=== PATIENT | male | born 1950 | race Caucasian/White ===

== ENCOUNTER 2017-04-28 20:01 | Inpatient (IN) | payer MEDICARE, SELFPAY ==
[2017-04-28 20:01] VITALS: BP 181/110; PULSE 76; RESP 18; TEMP 36.7; O2SAT 96; BMI 33.0
--- NOTE | 2017-04-28 20:16 | CT_ITS ---
STUDY: CT ABDOMEN AND PELVIS WITH CONTRAST REASON FOR EXAM: Male, 66 years old. Abdominal pain and back pain RADIATION DOSAGE (If Supplied By Facility): CTDIvol = ( 23.62 ) mGy, DLP = ( 1420.79 ) mGycm TECHNIQUE: Transaxial images were obtained from the lower chest to the upper thighs without oral contrast. 100 ml of Isovue 370 contrast was administered. Sagittal and coronal images were reconstructed. Individualized dose optimization techniques were used for this CT. COMPARISON: July 22, 2015 FINDINGS: The lower chest is dictated separately. The liver is prominent in size with decreased density. The gallbladder and biliary system are unremarkable. The spleen is unremarkable. There is minimal stranding around the pancreas. This is most pronounced around the head of the pancreas. The adrenal glands are unremarkable. The right kidney is unremarkable. There is no dilatation of the collecting system in the right kidney. There is a 1.4 cm cyst in the midpole of the left kidney. There is no dilatation of the collecting system in the left kidney. The stomach is unremarkable. The small bowel is unremarkable. There are diverticula in the distal colon without adjacent stranding. The appendix is visualized and appears normal. There are moderate vascular calcifications. There is a stable 4.5 cm aneurysm in the infrarenal abdominal aorta. Incidentally noted is a retroaortic left renal vein. There are stable dystrophic calcifications in the mid mesentery which are benign. There is no free fluid in the abdomen. The urinary bladder is unremarkable. The prostate is normal in appearance. There is a small umbilical hernia containing fat. There are mild degenerative changes in the visualized spine. CT/Abdomen/Pelvis W IV Cont ONLY IMPRESSION: There is mild pancreatitis, mainly seen around the head of the pancreas. There is no evidence of a pancreatic mass or pseudocyst. There is no ascites. There is no free air or significant lymphadenopathy. The liver is prominent in size with fatty infiltration. There is diverticulosis of the distal colon. There are no acute bowel abnormalities. There is a stable infrarenal abdominal aortic aneurysm. There is no fluid or inflammation around the infrarenal aorta. Electronically Signed: Kym Gudino MD at 21:48 EST Tel Direct: [phone], Service support ,
--- NOTE | 2017-04-28 20:17 | EKG12_ITS ---
Test Reason : ABDOMINAL PAIN Blood Pressure : / mmHG Vent. Rate : 083 BPM Atrial Rate : 083 BPM P-R Int : 188 ms QRS Dur : 102 ms QT Int : 364 ms P-R-T Axes : 053 -22 059 degrees QTc Int : 427 ms Normal sinus rhythm Inferior infarct , age undetermined Abnormal ECG Confirmed by CLARITA GOFF, LIBRADO ([id number]), assistant film editor JONNIE LOPEZ ([id number]) on 04/30/2017 3:14:33 PM Referred By: STEW Confirmed By:LIBRADO OTTO MD
--- NOTE | 2017-04-28 20:18 | CT_ITS ---
STUDY: CT CHEST WITH CONTRAST REASON FOR EXAM: Male, 66 years old. Chest and back pain RADIATION DOSAGE (If Supplied By Facility): CTDIvol = ( 17.07 ) mGy, DLP = ( 823.37 ) mGycm TECHNIQUE: Transaxial imaging was performed following intravenous administration of 100 ml of Isovue 370 contrast material. Sagittal and coronal reconstructions were performed. Individualized dose optimization techniques were used for this CT. COMPARISON: Chest radiograph dated December 16, 2016; chest CT dated August 22, 2013 FINDINGS: There is minimal stable scarring in the right middle lobe. There is minimal dependent atelectasis in both lungs. There is no demonstrated pleural abnormality. The heart is normal in size. There are calcifications of the coronary arteries. There are stable small lymph nodes scattered in the mediastinum. The hilar regions are unremarkable. The pulmonary arteries are unremarkable. There are minimal vascular calcifications in the thoracic aorta. There are minimal degenerative changes in the visualized spine. The upper abdomen is dictated separately. CT/Chest WITH Contrast IMPRESSION: There are no acute abnormalities in the chest. There is no aortic aneurysm or dissection. There are no focal parenchymal abnormalities. There is no pleural effusion or significant lymphadenopathy. There are stable small lymph nodes in the mediastinum. Electronically Signed: Kym Gudino MD at 21:40 EST Tel Direct: [phone], Service support ,
--- NOTE | 2017-04-28 20:21 | ED.DCSUM_ITS ---
- ER Visit Summary Date of Service: 04/28/17 Chief Complaint: Abdominal pain History of Present Illness: The patient is a 66 M who has had abdominal pain for the couple of weeks but got worse today. He describes pain in his epigastric region that radiates straight through to his back. He has had nausea without vomiting. Denies diarrhea or constipation. He states his bowel movements have been good. No urinary symptoms. The pain increased today which is why he came in. He denies a fever. He has a history of an abdominal aortic aneurysm. In 2016 it was 4.4 cm. The pain does radiate up into his chest. Has a history of pancreatitis 1-2 years ago. Physical Examination: Vital signs reviewed. HEENT exam unremarkable. Heart is regular rate and rhythm with a 3/6 systolic murmur. Patient denies any history of heart murmur. lungs are clear to auscultation. Abdomen is soft with epigastric tenderness to palpation. Extremities reveal no edema. Skin exam normal. Neurologic exam normal. Test Results: EKG is normal sinus rhythm with a rate of 83. There is nonspecific ST and T-wave changes. Laboratory studies are unremarkable except for a lipase [place] 4639. CT scan of the chest, abdomen and pelvis with IV contrast reveals pancreatitis but no other acute findings. He does have a chronic abdominal aortic aneurysm which is stable. Emergency Department Course and Treatment: Due to the patient's new murmur I did obtain advanced imaging which does not show any dissection. He does have pancreatitis. He was given fentanyl, Zofran and Dilaudid. Treatment Plan: Patient needs to be admitted for acute pancreatitis. Will discuss with the hospitalist for admission Disposition: Admit Impression: Pancreatitis This note was generated with [employer] dictation software. It may contain incorrect words, spelling, and punctuation that were not noted in review of the chart prior to signing ED Disposition - Plan for ED Patient: Chief Complaint: Abd Pain Referrals: Compa Ramos MD [Primary Care Provider] -
[2017-04-28] MEDS: Ondansetron 4 MG/2 ML Vial IV (20:30)
[2017-04-28] MEDS: 0.9% Normal Saline 1,000 ML 125 ML IV (20:30)
[2017-04-28] MEDS: fentaNYL 100 MCG/2 ML Ampul 50 MCG IV (20:30)
[2017-04-28 20:47] LABS: Absolute Lymphocyte Count 2.23 X10^3/ul (0.83-4.51); Absolute Neutrophil Count 6.2 X10^3/uL (2.0-7.7); Basophil# 0.03 X10^3/uL; Basophil% 0.3 % (0-1); Eosinophil# 0.25 X10^3/uL; Eosinophils% 2.7 % (0-5); Hemoglobin 15.7 g/dl (13.0-16.5); Lymphocyte # 2.23 X10^3/ul (4.0); Mean Corp Hgb Conc 36.5 g/gl (32-36); Mean Corpuscular Hgb 35.1 pg (27.0-32.0); Mean Corpuscular Volume 96.2 fL (80-94); Mean Platelet Vol. 9.5 fl (6.2-12.0); Monocyte# 0.61 X10^3/uL; Monocyte% 6.6 % (0-10); Neutrophil # 6.15 X10^3/uL (2.7-7.7); Neutrophil % 66.3 % (47-70); Platelet Count 233 K/mm3 (150-450); RBC Distribution Width CV 12.6 % (11.6-14.6); RBC Distribution Width SD 43.8 fl (35.1-43.9); Red Blood Count 4.47 M/mm3 (4.6-6.2); White Blood Count 9.3 K/mm3 (4.4-11.0)
[2017-04-28 20:48] LABS: POSITIVE COUNT NO; POSITIVE DIFFERENTIAL NO; POSITIVE MORPHOLOGY NO
[2017-04-28 21:10] LABS: ALB/GLOB Ratio 1.2 RATIO (0.9-2.4); AST(SGOT) 34 U/L (15-37); Alanine Aminotransfer ALT/SGPT 85 U/L (16-61); Albumin, Serum 4.1 g/dL (3.2-5.0); Alkaline Phosphatase 89 U/L (45-117); Anion Gap 9 (5-15); BUN 19 mg/dL (7-18); BUN/Creat Ratio 20.8 RATIO (10-20); Calcium,Total 8.8 mg/dL (8.5-10.1); Chloride 104 mmol/L (98-107); Creatinine, Serum 0.91 mg/dL (0.70-1.30); EST Glomerular Filtration Rate 88 mL/min (>60); Est Glom Filt Rate - Afr Amer 107 mL/min (>60); Estimated Creatinine Clearance 82.45 ml/min; Globulin 3.4 g/dL (2.2-4.2); Glucose 190 mg/dL (74-106); Lipase 4639 U/L (73-393); Potassium 3.8 mmol/L (3.5-5.1); Protein, Total 7.5 g/dL (6.4-8.2); Sodium Level 137 mmol/L (136-145)
[2017-04-28 21:21] VITALS: BP 189/119; PULSE 85; RESP 23; O2SAT 94
--- NOTE | 2017-04-28 21:25 | NURSING ---
COMPUTER IN THE ROOM IS NOT WORKING. TRIED TO HAVE ANOTHER NURSE LOGIN AND SHE WAS UNABLE TO WELL.
[2017-04-28] MEDS: HYDROmorphone 1 MG/ML Syringe IV ×2 (21:39→23:43)
[2017-04-28 21:47] VITALS: BP 169/96; PULSE 87; RESP 16; O2SAT 95
[2017-04-28 21:55] VITALS: BP 169/96; PULSE 87; RESP 19; O2SAT 96
[2017-04-28 22:00] VITALS: PULSE 91
[2017-04-28 22:50] VITALS: BMI 33.7
[2017-04-28 22:57] VITALS: BMI 33.8
[2017-04-28 23:05] VITALS: BP 155/100; PULSE 82; RESP 18; TEMP 36.6; O2SAT 95
[2017-04-28] MEDS: 0.9% Normal Saline 1,000 ML 150 ML IV (23:21)
[2017-04-29] VITALS (17 sets, daily range): BP systolic 125–164; BP diastolic 85–112; PULSE 75–96; RESP 14–18; TEMP 36.6–37.5; O2SAT 94–98
--- NOTE | 2017-04-29 03:56 | PCM.HP.STD ---
Problem List (1) Pancreatitis Status: Acute (2) Abdominal aortic aneurysm Status: Chronic Qualifiers: Comment: 4 cm (3) HLD (hyperlipidemia) Status: Chronic Qualifiers: (4) HTN (hypertension) Status: Chronic Qualifiers: (5) Sliding hiatal hernia Status: Chronic History of Present Illness Date of Admission: 04/29/17 Chief Complaint: Pancreatitis The patient is a 66 year old male w/ h/o HTN, GERD, pancreatitis, and lipidemia admitted for pancreatitis. Pt has been having dull aching abdominal pain for the past week. However since this morning, he has severe epigastric pain. Pain is stabbing and constant. Nothing made it worse or better. Pain radiated to the back. Pain is associated with nausea. No diarrhea or constipation. Past Medical History Past Medical History (Chronic Problems): Chronic Problems HLD (hyperlipidemia) (Chronic) Abdominal aortic aneurysm (Chronic) 4 cm HTN (hypertension) (Chronic) Sliding hiatal hernia (Chronic) Arthritis (Chronic) Allergies fenofibrate Allergy (Verified 04/28/17 20:04) Unknown Penicillins Allergy (Verified 04/28/17 20:04) Other morphine Adverse Reaction (Verified 04/28/17 20:04) Vomiting naproxen sodium [From Aleve] Adverse Reaction (Verified 04/28/17 20:04) Other Home Medications: Ambulatory Orders Medication Instructions Recorded Acetaminophen [Tylenol] 650 mg PO BID 10/11/13 Aspirin [Aspirin, Baby] 81 mg PO DAILY@0800 10/11/13 Metoprolol Tartrate [Lopressor 50 mg PO BID 10/11/13 (beta dustin)] Multivit-Min/FA/Lycopene/Lut 1 each PO QHS 10/11/13 [Centrum Silver Tablet] Ramipril [Altace] 10 mg PO BID 10/11/13 Ranitidine [Zantac] 150 mg PO BID 07/22/15 Atorvastatin Calcium [Lipitor] 40 mg PO QHS 05/22/16 [place]-3/Dha/Epa/Fish Oil [Fish Oil 2 each PO DAILY 05/22/16 1,000 mg Softgel] Amlodipine [Norvasc] 10 mg PO BID 12/16/16 Potassium 99 mg PO BID 12/16/16 Ibuprofen 600 mg PO BID 04/28/17 Surgical History: - - 1. cardiac cath in 2007 - normal 2. colon polypectomy - 08/2011 - benign 3. hemorrhoidectomy 4. umbilical hernia repair 5. R rotator cuff repair - 08/2013 6. 2 surgeries on the R knee - arthroscopic Psychiatric History: No pertinent psych hx Smoking Status: Never smoker Alcohol: None Drugs: None - *Family History Paternal History Items: Diabetes, Heart Disease, Hypertension Maternal History Items: Diabetes, Heart Disease, Hypertension Review of Systems Constitutional: Denies: Chills, Fever, Weight Change HEENT: Denies: Head Aches, Sinus Congestion, Sinus Drainage Cardiovascular: Denies: Chest Pain, Palpitations Respiratory: Denies: Cough, Shortness of breath at rest, Sputum production Gastrointestinal: Reports: Abdominal Pain, Nausea. Denies: Vomiting Genitourinary: Denies: Dysuria Musculoskeletal: Denies: Joint Pain, Joint Tenderness Skin: Denies: Rash, Wounds Neurological: Denies: Numbness, Tingling, Focal weakness Psychiatric: Denies: Anxiety, Depression, Homicidal Ideations, Suicidal Ideations Hematologic/ Lymphatic: Denies: Easy Bruising, Easy Bleeding VTE Information - Inpt Only VTE Present on Admission: No VTE Mechan Device Prophylaxis: SCD's VTE Pharm Prophylaxis ordered?: Yes Patient Problems: Active and Suspected Problems Pancreatitis (Acute) - Physical Exam General: Alert, Oriented x3, Cooperative HEENT: Atraumatic, PERRLA, EOMI, Normocephalic Neck: Supple, No JVD, Negative Carotid Bruits Lungs: Clear to auscultation, Normal air movement Cardiovascular: Regular rate, Murmur - II/ systolic murmur Abdomen: Bowel Sounds Present, Soft, Non Tender Extremities: No edema, Capillary Refill Less than 3 Seconds Skin: No rashes, No breakdown Musculoskeletal: No Tenderness to Palpation of Joints or Extremities Neurological: Cranial nerves II-XII grossly intact Psych/Mental Status: Normal Affect, Appropriate Vital Signs Temp Pulse Resp BP Pulse Ox 97.9 F 94 18 149/106 H 96 04/29/17 03:46 04/29/17 03:46 04/29/17 03:46 04/29/17 03:46 04/29/17 03:46 Oxygen Delivery Method Room Air Weight: 106.8 kg Body Mass Index (BMI) 33.7 Intake and Output for Last 24 Hours 04/27/17 04/28/17 04/30/17 23:59 23:59 00:59 Intake Total 243 / 243 Balance 243 / 243 Laboratory Tests Past 24 Hrs 04/28/17 23:28 Troponin I < 0.02 Assessment/Plan Active and Suspected Problems Pancreatitis (Acute) 66 year old male w/ h/o HTN, GERD, pancreatitis, and lipidemia admitted for pancreatitis. 1) Pancreatitis: Lipase 4639 CT disclosed pancreatitis, no stone. Will hydrate. Pain controlled with morphine. NPO. Will get AM lipase and lipid. 2) HTN: NPO. Appears controlled at this time. Monitor. 3) CAD: C/w meds. Monitor. 4) Prophylaxis: SCD / heparin.
[2017-04-29 05:28] LABS: Absolute Lymphocyte Count 1.49 X10^3/ul (0.83-4.51); Absolute Neutrophil Count 7.2 X10^3/uL (2.0-7.7); Basophil# 0.03 X10^3/uL; Basophil% 0.3 % (0-1); Eosinophil# 0.15 X10^3/uL; Eosinophils% 1.6 % (0-5); Hematocrit 39.7 % (40-54); Hemoglobin 14.4 g/dl (13.0-16.5); Lymphocyte # 1.49 X10^3/ul (4.0); Lymphocyte % 15.7 % (19-41); Mean Corp Hgb Conc 36.3 g/gl (32-36); Mean Corpuscular Volume 96.4 fL (80-94); Mean Platelet Vol. 9.5 fl (6.2-12.0); Monocyte# 0.61 X10^3/uL; Monocyte% 6.4 % (0-10); Neutrophil # 7.18 X10^3/uL (2.7-7.7); Neutrophil % 75.9 % (47-70); Platelet Count 222 K/mm3 (150-450); RBC Distribution Width CV 12.4 % (11.6-14.6); RBC Distribution Width SD 42.1 fl (35.1-43.9); Red Blood Count 4.12 M/mm3 (4.6-6.2); White Blood Count 9.5 K/mm3 (4.4-11.0)
[2017-04-29 05:41] LABS: POSITIVE COUNT NO; POSITIVE DIFFERENTIAL NO; POSITIVE MORPHOLOGY NO
[2017-04-29] MEDS: HYDROmorphone 1 MG/ML Syringe IV (05:52)
[2017-04-29 06:16] LABS: Amylase 132 U/L (25-115); Anion Gap 9 (5-15); BUN 19 mg/dL (7-18); Calcium,Total 8.5 mg/dL (8.5-10.1); Chloride 105 mmol/L (98-107); Cholesterol 198 mg/dL (200); Creatinine, Serum 0.76 mg/dL (0.70-1.30); EST Glomerular Filtration Rate 109 mL/min (>60); Est Glom Filt Rate - Afr Amer 132 mL/min (>60); Estimated Creatinine Clearance 75.03 ml/min; Glucose 170 mg/dL (74-106); High Density Lipoprotein 28 mg/dL; Lipase 1490 U/L (73-393); Sodium Level 138 mmol/L (136-145); Triglycerides 613 mg/dL
[2017-04-29] MEDS: 0.9% Normal Saline 1,000 ML 150 ML IV ×3 (07:24→21:16)
--- NOTE | 2017-04-29 08:30 | ECHOD_ITS ---
Reason For Study: Dyspnea/SOB Procedure This was a 2D Doppler, Color Flow transthoracic echocardiogram. Exam performed portable in patient room. Left Ventricle Normal LV size. Left ventricular systolic function is normal. The estimated ejection fraction is 65 %. No evidence for diastolic dysfunction. No regional wall motion abnormalities noted. Right Ventricle Normal RV size. Normal systolic function. Atria Normal left atrium. Normal right atrium. Mitral Valve Chordal systolic anterior motion of the mitral valve. Posterior leaflet mitral valve prolapse. Mild -Moderate (1-2+) anteriorly directed mitral valve insufficiency. Tricuspid Valve Normal tricuspid valve. Mild tricuspid valve insufficiency. Aortic Valve Normal aortic valve. Trisinus/trileaflet aortic valve. Pulmonic Valve Normal pulmonic valve. Great Vessels Normal aortic root. The pulmonary artery is normal size. Normal inferior vena cava. Pericardium/Pleural No pericardial effusion. MMode/2D Measurements & Calculations LVIDd: 4.7 cm IVSd: 1.2 cm Ao root diam: 3.6 cm LVIDs: 2.8 cm LVPWd: 0.93 cm LA dimension: 4.6 cm RVDd: 3.3 cm FS: 40.4 % LAV(MOD-bp): 64.1 ml LA A4 area: 19.0 cm2 RA A4 area: 11.5 cm2 LAV(MOD-bp) Indexed: 28.7 ml/m2 LAV(MOD-sp2): 75.6 ml LAV(MOD-sp4): 52.2 ml Time Measurements MV dec time: 0.15 sec Doppler Measurements & Calculations MV E max josemanuel: 132.9 cm/sec Lat Peak E' Josemanuel: 7.7 cm/sec Med Peak E' Josemanuel: 6.6 cm/sec MV A max josemanuel: 128.1 cm/sec E/E' lat: 17.3 E/E' med: 20.2 MV E/A: 1.0 MV V2 max: 150.8 cm/sec MV P1/2t max josemanuel: 147.5 cm/sec Ao V2 max: 158.0 cm/sec MV max P.1 mmHg MV P1/2t: 96.2 msec Ao max P.0 mmHg MV V2 mean: 102.2 cm/sec MV dec slope: 449.0 cm/sec2 Ao V2 mean: 109.0 cm/sec MV mean P.5 mmHg MVA(P1/2t): 2.3 cm2 Ao mean P.1 mmHg MV V2 VTI: 44.9 cm Ao V2 VTI: 31.7 cm PA V2 max: 78.8 cm/sec TR max josemanuel: 130.3 cm/sec TR max P.8 mmHg Interpretation Summary Normal LV size. Left ventricular systolic function is normal. The estimated ejection fraction is 65 %. No evidence for diastolic dysfunction. Posterior leaflet mitral valve prolapse. Mild-Moderate (1-2+) anteriorly directed mitral valve insufficiency. Mild tricuspid valve insufficiency. Ordering Physician: Alena Young Referring Physician: Compa Ramos Performed By: Marissa Sweet, JO, RVT
[2017-04-29] MEDS: Metoprolol Tartrate 50 MG Tablet PO ×2 (08:46→21:16)
--- NOTE | 2017-04-29 10:50 | PCM.PN.HOSP ---
Patient Problems: Active and Suspected Problems Pancreatitis (Acute) Subjective: Follow-up on pancreatitis: Patient was seen and examined. Does not feel like eating. Feels full. Pain is controlled with dilaudid. Denies fever or chills or dizziness. Vitals reviewed, blood pressure is high. Patient's home medications have been on hold. Upon further review, his home medication list is probably wrong. His will bring his home medication. He also gets his medications filled with [facility]. Vitals/I&O's: Vital Signs Temp Pulse Resp BP Pulse Ox 97.9 F 96 18 163/104 H 96 04/29/17 03:46 04/29/17 08:46 04/29/17 03:46 04/29/17 08:39 04/29/17 03:46 Oxygen Delivery Method Room Air Weight: 106.8 kg Body Mass Index (BMI) 33.7 Intake and Output for Last 24 Hours 04/27/17 04/28/17 04/30/17 23:59 23:59 00:59 Intake Total 869 / 869 Output Total 550 / 550 Balance 319 / 319 General: Alert, Oriented x3, Cooperative, No apparent distress, - - Obese HEENT: Atraumatic, PERRLA, EOMI, Normocephalic Oral: Moist Mucosa Neck: Supple Lungs: Clear to auscultation, Normal air movement Cardiovascular: Regular rate, Regular Rhythm, Normal S1, Normal S2, No murmurs Abdomen: Bowel Sounds Present, Soft, Non Tender, Distended Extremities: No edema Skin: No rashes, No breakdown Musculoskeletal: No Tenderness to Palpation of Joints or Extremities Lymphatic: No Cervical, Supraclavicular, or Inguinal Adenopathy Neurological: Cranial nerves II-XII grossly intact, Neuro grossly intact Psych/Mental Status: Normal Affect, Appropriate Laboratory Results 04/28/17 23:28: Troponin I < 0.02 04/29/17 04:50: WBC 9.5, RBC 4.12 L, Hgb 14.4, Hct 39.7 L, MCV 96.4 H, MCH 35.0 H, MCHC 36.3 H, RDW 12.4, RDW Differential 42.1, Plt Count 222, MPV 9.5, Immature Gran % (Auto) 0.100, Neut % (Auto) 75.9 H, Lymph % (Auto) 15.7 L, [place] % (Auto) 6.4, Eos % (Auto) 1.6, Baso % (Auto) 0.3, Absolute Neuts (auto) 7.2, Absolute Lymphs (auto) 1.49, Total Counted Not Reportable 04/29/17 04:50: Sodium 138, Potassium 4.0, Chloride 105, Carbon Dioxide 24.0, Anion Gap 9, BUN 19 H, Creatinine 0.76, Estim Creat Clear Calc 75.03, Est GFR (MDRD) Af Amer 132, Est GFR (MDRD) Non-Af 109, BUN/Creatinine Ratio 25.0 H, Glucose 170 H, Calcium 8.5, Triglycerides 613 H, Cholesterol 198, LDL Cholesterol TNP, VLDL Cholesterol TNP, HDL Cholesterol 28 L, Amylase 132 H, Lipase 1490 H Current Medications Atorvastatin Calcium (Lipitor) 80 mg PO QHS [facility] Heparin Sodium (Porcine) (Heparin Na) 5,000 unit SC Q8 [facility] Last Admin: 04/29/17 05:54 Dose: 5,000 units Hydralazine HCl (Apresoline) 10 mg IV Q4H PRN PRN PRN Reason: BLOOD PRESSURE ELEVATION Last Admin: 04/29/17 05:53 Dose: 10 mg Hydromorphone HCl (Dilaudid) 1 mg IV Q2H PRN PRN PRN Reason: SEVERE PAIN (6-11/28) Last Admin: 04/29/17 05:52 Dose: 1 mg Sodium Chloride () 1,000 mls @ 150 mls/hr IV .Q6H40M [facility] Last Admin: 04/29/17 07:24 Dose: 150 mls/hr Famotidine (Pepcid 20mg) 20 mg in 50 mls @ 150 mls/hr IV Q12 [facility] Last Admin: 04/29/17 10:32 Dose: 150 mls/hr Magnesium Hydroxide (Milk Of Magnesia) 30 ml PO DAILY PRN PRN PRN Reason: Constipation Metoprolol Tartrate (Lopressor (Beta Hari)) 50 mg PO BID [facility] Last Admin: 04/29/17 08:46 Dose: 50 mg Sodium Chloride () 5 - 30 ml IV UD PRN PRN Reason: SALINE FLUSH Assessment/Plan Active and Suspected Problems Pancreatitis (Acute) 66 year old male past medical history of CAD, hypertension, previous admission in July 2016 for acute pancreatitis, following ICU admission comes in on 04/28/2017 with abdominal pain with nausea but no vomiting. Admitting lipase was 4639, CT scan of the abdomen and pelvis shows mild stranding of the head of the pancreas consistent with mild pancreatitis. 1. Acute pancreatitis secondary to hypertriglyceridemia, triglycerides 613, patient is on atorvastatin 40 nightly, obese, managed conservatively with IV fluids, pain control, kept n.p.o. Plan: Continue with conservative management, advance diet as patient improves, continue with pain control, IV fluids, increase atorvastatin to 80 mg nightly, also get ultrasound of the liver to rule out gallstone as possible etiology for his acute pancreatitis. Strongly educated on strict low-fat diet, exercises and weight loss. 2. Holosystolic murmur, unsure if this is new, last 2D echo on December 18, 2016 showed no valvular disease, will get new 2D-echo 3. Hypertension, uncontrolled, will resume some of his home medications. The admitting home medication reconciliation list is wrong, his will bring all his medications or we will call [facility] to have them fax over his current med list 4. CAD, last cardiac cath showed minimal disease, his aspirin on hold on account of his n.p.o. status, continued on metoprolol, atorvastatin, 5. DVT Prophylaxis - SCD / heparin. Code Visit Procedures: Other Procedure - See Report - Non-roundable billing
--- NOTE | 2017-04-29 11:00 | PN_ITS ---
Patient Problems: Active and Suspected Problems Pancreatitis (Acute) Subjective: Follow-up on pancreatitis: Patient was seen and examined. Does not feel like eating. Feels full. Pain is controlled with dilaudid. Denies fever or chills or dizziness. Vitals reviewed, blood pressure is high. Patient's home medications have been on hold. Upon further review, his home medication list is probably wrong. His will bring his home medication. He also gets his medications filled with [facility]. Vitals/I&O's: Vital Signs Temp Pulse Resp BP Pulse Ox 97.9 F 96 18 163/104 H 96 04/29/17 03:46 04/29/17 08:46 04/29/17 03:46 04/29/17 08:39 04/29/17 03:46 Oxygen Delivery Method Room Air Weight: 106.8 kg Body Mass Index (BMI) 33.7 Intake and Output for Last 24 Hours 04/27/17 04/28/17 04/30/17 23:59 23:59 00:59 Intake Total 869 / 869 Output Total 550 / 550 Balance 319 / 319 General: Alert, Oriented x3, Cooperative, No apparent distress, - - Obese HEENT: Atraumatic, PERRLA, EOMI, Normocephalic Oral: Moist Mucosa Neck: Supple Lungs: Clear to auscultation, Normal air movement Cardiovascular: Regular rate, Regular Rhythm, Normal S1, Normal S2, No murmurs Abdomen: Bowel Sounds Present, Soft, Non Tender, Distended Extremities: No edema Skin: No rashes, No breakdown Musculoskeletal: No Tenderness to Palpation of Joints or Extremities Lymphatic: No Cervical, Supraclavicular, or Inguinal Adenopathy Neurological: Cranial nerves II-XII grossly intact, Neuro grossly intact Psych/Mental Status: Normal Affect, Appropriate Laboratory Results 04/28/17 23:28: Troponin I < 0.02 04/29/17 04:50: WBC 9.5, RBC 4.12 L, Hgb 14.4, Hct 39.7 L, MCV 96.4 H, MCH 35.0 H, MCHC 36.3 H, RDW 12.4, RDW Differential 42.1, Plt Count 222, MPV 9.5, Immature Gran % (Auto) 0.100, Neut % (Auto) 75.9 H, Lymph % (Auto) 15.7 L, [place] % (Auto) 6.4, Eos % (Auto) 1.6, Baso % (Auto) 0.3, Absolute Neuts (auto) 7.2, Absolute Lymphs (auto) 1.49, Total Counted Not Reportable 04/29/17 04:50: Sodium 138, Potassium 4.0, Chloride 105, Carbon Dioxide 24.0, Anion Gap 9, BUN 19 H, Creatinine 0.76, Estim Creat Clear Calc 75.03, Est GFR ( MDRD) Af Amer 132, Est GFR (MDRD) Non-Af 109, BUN/Creatinine Ratio 25.0 H, Glucose 170 H, Calcium 8.5, Triglycerides 613 H, Cholesterol 198, LDL Cholesterol TNP, VLDL Cholesterol TNP, HDL Cholesterol 28 L, Amylase 132 H, Lipase 1490 H Current Medications Atorvastatin Calcium (Lipitor) 80 mg PO QHS [facility] Heparin Sodium (Porcine) (Heparin Na) 5,000 unit SC Q8 [facility] Last Admin: 04/29/17 05:54 Dose: 5,000 units Hydralazine HCl (Apresoline) 10 mg IV Q4H PRN PRN PRN Reason: BLOOD PRESSURE ELEVATION Last Admin: 04/29/17 05:53 Dose: 10 mg Hydromorphone HCl (Dilaudid) 1 mg IV Q2H PRN PRN PRN Reason: SEVERE PAIN (6-11/28) Last Admin: 04/29/17 05:52 Dose: 1 mg Sodium Chloride () 1,000 mls @ 150 mls/hr IV .Q6H40M [facility] Last Admin: 04/29/17 07:24 Dose: 150 mls/hr Famotidine (Pepcid 20mg) 20 mg in 50 mls @ 150 mls/hr IV Q12 [facility] Last Admin: 04/29/17 10:32 Dose: 150 mls/hr Magnesium Hydroxide (Milk Of Magnesia) 30 ml PO DAILY PRN PRN PRN Reason: Constipation Metoprolol Tartrate (Lopressor (Beta Hari)) 50 mg PO BID [facility] Last Admin: 04/29/17 08:46 Dose: 50 mg Sodium Chloride () 5 - 30 ml IV UD PRN PRN Reason: SALINE FLUSH Assessment/Plan Active and Suspected Problems Pancreatitis (Acute) 66 year old male past medical history of CAD, hypertension, previous admission in July 2016 for acute pancreatitis, following ICU admission comes in on 2017 with abdominal pain with nausea but no vomiting. Admitting lipase was 4639 , CT scan of the abdomen and pelvis shows mild stranding of the head of the pancreas consistent with mild pancreatitis. 1. Acute pancreatitis secondary to hypertriglyceridemia, triglycerides 613, patient is on atorvastatin 40 nightly, obese, managed conservatively with IV fluids, pain control, kept n.p.o. Plan: Continue with conservative management, advance diet as patient improves, continue with pain control, IV fluids, increase atorvastatin to 80 mg nightly, also get ultrasound of the liver to rule out gallstone as possible etiology for his acute pancreatitis. Strongly educated on strict low-fat diet, exercises and weight loss. 2. Holosystolic murmur, unsure if this is new, last 2D echo on December 18, 2016 showed no valvular disease, will get new 2D-echo 3. Hypertension, uncontrolled, will resume some of his home medications. The admitting home medication reconciliation list is wrong, his will bring all his medications or we will call [facility] to have them fax over his current med list 4. CAD, last cardiac cath showed minimal disease, his aspirin on hold on account of his n.p.o. status, continued on metoprolol, atorvastatin, 5. DVT Prophylaxis - SCD / heparin. Code Visit Procedures: Other Procedure - See Report - Non-roundable billing
[2017-04-29] MEDS: Atorvastatin Calcium 80 MG Tablet PO (21:16)
[2017-04-29] MEDS: 0.9% NaCl Peripheral Flush Adult/Peds IV (21:16)
[2017-04-30] VITALS (15 sets, daily range): BP systolic 134–158; BP diastolic 85–106; PULSE 71–91; RESP 16; TEMP 36.4–37.2; O2SAT 96–99
[2017-04-30] MEDS: 0.9% Normal Saline 1,000 ML 150 ML IV (03:12)
[2017-04-30] MEDS: Metoprolol Tartrate 50 MG Tablet PO ×2 (08:57→20:49)
[2017-04-30] MEDS: 0.9% NaCl Peripheral Flush Adult/Peds IV ×2 (09:00→14:53)
--- NOTE | 2017-04-30 10:02 | PCM.PROGNOTE ---
Patient Problems: Active and Suspected Problems Pancreatitis (Acute) Subjective: Patient is a 66-year-old male with a past medical history of hypertension, hypertriglyceridemia, coronary artery disease, hypercholesterolemia, hiatal hernia, infrarenal abdominal aortic aneurysm, diverticulosis and obesity who presented to the emergency department at [facility] on 04/29/2017 complaining of abdominal pain. Pain radiated to his back. He was afebrile with a normal white blood cell count. [place]ase [place] 4639. CT scan of the abdomen and pelvis showed a stable 4.5 cm infrarenal abdominal aortic aneurysm, diverticulosis, fatty infiltration of the liver and stranding around the head of the pancreas. He was admitted to the hospital with pancreatitis presumed to be due to high TRIG. He has had 1 episode of pancreatitis in the past and that was caused by Fenofibrate he was taking for high TRIG. He has had dyslipidemia in the past and has been on Atorvastatin but, he is no longer on this medication and dose not know why is was stopped and who stopped it. He has been eating a regular diet in the hospital He denies nausea and has not had to have pain medication since 6 AM on 04/29. He tells me that he has been having nausea for the past 4-6 weeks. It gets worse when he eats sausage. Blood sugars have been elevated in the hospital. No bowel movement since admission - Physical Exam General: Alert, Oriented x3, Cooperative, No apparent distress HEENT: Atraumatic, PERRLA, EOMI Oral: Moist Mucosa Neck: Supple, Trachea Midline Lungs: Clear to auscultation Cardiovascular: Regular rate, Regular Rhythm, Normal S1, Normal S2, No Gallop Abdomen: Non Tender, Hypoactive Bowel Sounds, Distended - and a little firm Extremities: No clubbing, No cyanosis, No edema Skin: No rashes, No breakdown Neurological: Cranial nerves II-XII grossly intact, Neuro grossly intact Psych/Mental Status: Normal Affect, Appropriate Vital Signs Temp Pulse Resp BP Pulse Ox 98.4 F 88 16 158/105 H 98 04/30/17 08:54 04/30/17 08:59 04/30/17 08:54 04/30/17 08:54 04/30/17 08:54 Oxygen Delivery Method Room Air Weight: 235 lb 7.259 oz Body Mass Index (BMI) 33.7 Intake and Output for Last 24 Hours 04/28/17 04/29/17 04/30/17 22:59 23:59 23:59 Intake Total 880 / 880 Output Total 600 / 600 Balance 280 / 280 Assessment/Plan Active and Suspected Problems Pancreatitis (Acute) Impressions 1. Acute pancreatitis - etiology unclear to me. He does not drink alcohol. He gets nauseated and has RUQ abdominal pain with eatig sausage and it radiates to the R shoulder blade. Will obtain a RUQ US today. Change the diet to clear liquid and recheck lab in the AM 2. elevated blood sugars with no hx of DM - check a HGBA1C 3. Dyslipidemia-continue atorvastatin but decreased the dose to 40 mg which was the dose he was on last Spring when I admitted him for CP 4. Obesity 5. Coronary artery disease-on medical management. 6. Hypertension 7. New MM heard by dr. Young.....ECHO done today awaiting the report Change diet to clear liquid Recheck the lab in the AM Decrease the IV rate US of the GB continue DVT prophylaxis with heparin and SCDs Restart aspirin at discharge [employer]' consult for education Code Visit Inpatient E&M: 99680 Subs Hosp L2
--- NOTE | 2017-04-30 10:12 | PN_ITS ---
Patient Problems: Active and Suspected Problems Pancreatitis (Acute) Subjective: Patient is a 66-year-old male with a past medical history of hypertension, hypertriglyceridemia, coronary artery disease, hypercholesterolemia, hiatal hernia, infrarenal abdominal aortic aneurysm, diverticulosis and obesity who presented to the emergency department at [facility] on 2017 complaining of abdominal pain. Pain radiated to his back. He was afebrile with a normal white blood cell count. Lipase was elevated [place] 4639. CT scan of the abdomen and pelvis showed a stable 4.5 cm infrarenal abdominal aortic aneurysm, diverticulosis, fatty infiltration of the liver and stranding around the head of the pancreas. He was admitted to the hospital with pancreatitis presumed to be due to high TRIG. He has had 1 episode of pancreatitis in the past and that was caused by Fenofibrate he was taking for high TRIG. He has had dyslipidemia in the past and has been on Atorvastatin but , he is no longer on this medication and dose not know why is was stopped and who stopped it. He has been eating a regular diet in the hospital He denies nausea and has not had to have pain medication since 6 AM on 04/29. He tells me that he has been having nausea for the past 4-6 weeks. It gets worse when he eats sausage. Blood sugars have been elevated in the hospital. No bowel movement since admission - Physical Exam General: Alert, Oriented x3, Cooperative, No apparent distress HEENT: Atraumatic, PERRLA, EOMI Oral: Moist Mucosa Neck: Supple, Trachea Midline Lungs: Clear to auscultation Cardiovascular: Regular rate, Regular Rhythm, Normal S1, Normal S2, No Gallop Abdomen: Non Tender, Hypoactive Bowel Sounds, Distended - and a little firm Extremities: No clubbing, No cyanosis, No edema Skin: No rashes, No breakdown Neurological: Cranial nerves II-XII grossly intact, Neuro grossly intact Psych/Mental Status: Normal Affect, Appropriate Vital Signs Temp Pulse Resp BP Pulse Ox 98.4 F 88 16 158/105 H 98 04/30/17 08:54 04/30/17 08:59 04/30/17 08:54 04/30/17 08:54 04/30/17 08:54 Oxygen Delivery Method Room Air Weight: 235 lb 7.259 oz Body Mass Index (BMI) 33.7 Intake and Output for Last 24 Hours 04/28/17 04/29/17 04/30/17 22:59 23:59 23:59 Intake Total 880 / 880 Output Total 600 / 600 Balance 280 / 280 Assessment/Plan Active and Suspected Problems Pancreatitis (Acute) Impressions 1. Acute pancreatitis - etiology unclear to me. He does not drink alcohol. He gets nauseated and has RUQ abdominal pain with eatig sausage and it radiates to the R shoulder blade. Will obtain a RUQ US today. Change the diet to clear liquid and recheck lab in the AM 2. elevated blood sugars with no hx of DM - check a HGBA1C 3. Dyslipidemia-continue atorvastatin but decreased the dose to 40 mg which was the dose he was on last Spring when I admitted him for CP 4. Obesity 5. Coronary artery disease-on medical management. 6. Hypertension 7. New MM heard by dr. 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
[2017-04-30] MEDS: 0.9% Normal Saline 1,000 ML 40 ML IV (10:23)
--- NOTE | 2017-04-30 10:27 | US_ITS ---
STUDY: ABDOMINAL ULTRASOUND - RIGHT UPPER QUADRANT REASON FOR VISIT: Male, 66 years old. Elevated liver function tests. TECHNIQUE: Ultrasound evaluation of the right upper quadrant was performed with real-time and static clarke-scale imaging. TECHNICAL QUALITY: Adequate. COMPARISON: July 24, 2015 ultrasound. April 28, 2017 CT FINDINGS: Liver: The liver measures 16.3 cm. There is increased echogenicity consistent with fatty infiltration. The bile ducts are within normal limits. There is hepatic color flow. The direction of portal flow is hepatopetal. There is no demonstrated mass lesion. Gallbladder: Normal distended gallbladder. The gallbladder wall measures 3 mm. There is a negative sonographic Rios's sign. There is no pericholecystic fluid. There are no gallstones. There is echogenic nonshadowing polyp adherent to the wall. Common Bile Duct (C.B.D.): The common bile duct measures 8 mm. Pancreas: Normal size of the head, body and tail of the pancreas. There is normal echogenicity of the pancreas. There is no demonstrated pancreatic mass or cyst. Right Kidney: Normal size of the right kidney. The right kidney measures 13.5 cm. Normal renal cortex. The right cortex measures 2.1 cm. There is no demonstrated renal mass or cyst. There is no right hydronephrosis. US/Abdomen Limited IMPRESSION: Fatty infiltration of the liver. Polyp within the gallbladder. No shadowing stones. Prominent common bile duct. Electronically Signed: Asim Kidd MD at 16:10 EDT , Service support ,
--- NOTE | 2017-04-30 10:39 | CASEMGMT ---
RN SHAGGY Face to Face with patient for initial transition planning/care coordination assessment. RN CM introduced self and role at [facility]. Patient sitting in chair, alert and oriented. Patient willing to participate in assessment and is able to answer all questions appropriately. Care providers, pharmacy, and demographics verified. See link attached. Patient wishes to discharge home, denies need for home health at this time. Patient states he has no further needs or concerns at this time. CM to follow for discharge planning needs that may arise. Disposition Plan: Patient to discharge home with family support and follow-up needs in place.
[2017-04-30 10:54] LABS: Hemoglobin 15.1 g/dl (13.0-16.5)
[2017-04-30 10:56] LABS: Lipase 477 U/L (73-393)
--- NOTE | 2017-04-30 15:13 | NURSING ---
Pt. off the floor for ultrasound
[2017-04-30] MEDS: Acetaminophen 325 MG Tablet 650 MG PO (20:48)
[2017-04-30] MEDS: Atorvastatin Calcium 40 MG Tablet PO (20:49)
[2017-05-01 04:45] VITALS: BP 159/91; PULSE 78; RESP 16; TEMP 36.9; O2SAT 98
[2017-05-01] MEDS: Acetaminophen 325 MG Tablet 650 MG PO (04:52)
[2017-05-01 05:32] LABS: Absolute Neutrophil Count 3.8 X10^3/uL (2.0-7.7); Basophil# 0.04 X10^3/uL; Basophil% 0.6 % (0-1); Eosinophil# 0.24 X10^3/uL; Eosinophils% 3.4 % (0-5); Hematocrit 41.1 % (40-54); Hemoglobin 14.9 g/dl (13.0-16.5); Lymphocyte % 32.7 % (19-41); Mean Corp Hgb Conc 36.3 g/gl (32-36); Mean Corpuscular Hgb 35.1 pg (27.0-32.0); Mean Corpuscular Volume 96.7 fL (80-94); Mean Platelet Vol. 9.4 fl (6.2-12.0); Monocyte# 0.64 X10^3/uL; Monocyte% 9.1 % (0-10); Neutrophil # 3.79 X10^3/uL (2.7-7.7); Neutrophil % 53.9 % (47-70); Platelet Count 214 K/mm3 (150-450); RBC Distribution Width CV 12.7 % (11.6-14.6); RBC Distribution Width SD 43.6 fl (35.1-43.9); Red Blood Count 4.25 M/mm3 (4.6-6.2)
[2017-05-01 05:33] LABS: POSITIVE COUNT NO; POSITIVE DIFFERENTIAL NO; POSITIVE MORPHOLOGY NO
[2017-05-01 07:38] LABS: Anion Gap 6 (5-15); BUN 14 mg/dL (7-18); BUN/Creat Ratio 15.4 RATIO (10-20); Calcium,Total 9.3 mg/dL (8.5-10.1); Chloride 107 mmol/L (98-107); Creatinine, Serum 0.91 mg/dL (0.70-1.30); EST Glomerular Filtration Rate 89 mL/min (>60); Est Glom Filt Rate - Afr Amer 107 mL/min (>60); Estimated Creatinine Clearance 82.45 ml/min; Glucose 119 mg/dL (74-106); Potassium 3.9 mmol/L (3.5-5.1); Sodium Level 138 mmol/L (136-145)
[2017-05-01 07:40] LABS: Lipase 224 U/L (73-393)
[2017-05-01 08:51] VITALS: BP 170/109; PULSE 84; RESP 16; TEMP 36.4; O2SAT 98
[2017-05-01 08:56] VITALS: PULSE 84
[2017-05-01] MEDS: Metoprolol Tartrate 50 MG Tablet PO (08:56)
[2017-05-01] MEDS: 0.9% NaCl Peripheral Flush Adult/Peds IV (08:57)
[2017-05-01 10:25] VITALS: BP 135/91; PULSE 91
--- NOTE | 2017-05-01 12:09 | PCM.DC ---
- Discharge Diagnoses Current Active Problems: Current Active and Chronic Problems Pancreatitis (Acute) You will use the following diet at home:: Cardiac Your food should be the consistency of: Regular Your liquids should be the consistency of: Regular/Thin Discharge Activity: Return to Normal Activity Call your doctor if you observe: Fever of 101 or Higher, Shortness of breath, Chest pain, Uncontrolled pain, - - nausea and vomiting, severe abdominal pain, shaking chills Instructions: Understanding Pancreatitis, Discharge Instructions for Acute Pancreatitis Additional Instructions: You have a polyp in the gallbladder. These can develop because of high fats in the blood, chronic inflammation and also from malignancies. I am giving you a requisition to obtain a test called a HIDA scan. This is a specific test for Gallbladder dysfunction. I would talk to Dr. Ramos before scheduling the test because he may to clear it with your insurance company so they will pay for it. I think you should follow up with Dr. Michelle about the polpyp even if the HIDA is negative because you are having symptoms we see with inflammation of the gallbladder and you have now had pancreatitis twice. I am giving you a prescription for atorvastatin (also called Lipitor). You will take this once daily at bedtime. I have also given you a requisition to obtain a lipid panel and liver profile in 6 weeks and the results will be sent to Dr. Ramos. If you start to have symptoms like the pancreatitis may be recurring cut back to a clear liquid diet for 48-72 hours to see if it resolves....if not go to the ED or call Dr. Ramos. The ECHO (ultrasound of the heart) shows that the heart squeezes noramlly. The murmur is due to a leaky mitral valve and this Murmur will get louder when the BP is high. It was high in the hospital because your BP pills were held. Your BP is still rather high. Please follow up in the office with Dr. Ramos in the next 5-7 days to have the BP rechecked. Ideally the BP should be < 130/80. Pending Tests on Discharge: none Allergies/Adverse Reactions: Allergies fenofibrate Allergy (Verified 04/28/17 20:04) Unknown Penicillins Allergy (Verified 04/28/17 20:04) Other morphine Adverse Reaction (Verified 04/28/17 20:04) Vomiting naproxen sodium [From Aleve] Adverse Reaction (Verified 04/28/17 20:04) Other Medications to take at Discharge Acetaminophen [Tylenol] 650 mg PO BID 10/11/13 Aspirin [Aspirin, Baby] 81 mg PO DAILY@0800 10/11/13 Metoprolol Tartrate [Lopressor (beta dustin)] 50 mg PO BID 10/11/13 Multivit-Min/FA/Lycopene/Lut [Centrum Silver Tablet] 1 each PO QHS 10/11/13 Ramipril [Altace] 10 mg PO BID 10/11/13 Ranitidine [Zantac] 150 mg PO BID 07/22/15 Atorvastatin Calcium [Lipitor] 40 mg PO QHS 05/22/16 [place]-3/Dha/Epa/Fish Oil [Fish Oil 1,000 mg Softgel] 2 each PO DAILY 05/22/16 Amlodipine [Norvasc] 10 mg PO BID 12/16/16 Potassium 99 mg PO BID 12/16/16 Ibuprofen 600 mg PO TID PRN PRN 04/28/17 Zonisamide [Zonegran] 25 mg PO DAILY 04/29/17 Atorvastatin Calcium [Lipitor] 40 mg PO QHS #30 tab 05/01/17 The following prescriptions were given: Atorvastatin Calcium [Lipitor] 40 mg PO QHS #30 tab Orders to be completed after discharge: Hepatobilliary Img w/Pharm Int [NM] Location: None Selected Primary Care Physician: Compa Ramos MD [Primary Care Provider] - Please follow up with your Primary Care Physician in: 5-7 days Please Follow Up With: Sabino Michelle MD When: 2 weeks Proposed Discharge Date: 05/01/17
--- NOTE | 2017-05-01 12:19 | DCINST_ITS ---
- Discharge Diagnoses Current Active Problems: Current Active and Chronic Problems Pancreatitis (Acute) You will use the following diet at home:: Cardiac Your food should be the consistency of: Regular Your liquids should be the consistency of: Regular/Thin Discharge Activity: Return to Normal Activity Call your doctor if you observe: Fever of 101 or Higher, Shortness of breath, Chest pain, Uncontrolled pain, - - nausea and vomiting, severe abdominal pain, shaking chills Instructions: Understanding Pancreatitis, Discharge Instructions for Acute Pancreatitis Additional Instructions: You have a polyp in the gallbladder. These can develop because of high fats in the blood, chronic inflammation and also from malignancies. I am giving you a requisition to obtain a test called a HIDA scan. This is a specific test for Gallbladder dysfunction. I would talk to Dr. Ramos before scheduling the test because he may to clear it with your insurance company so they will pay for it. I think you should follow up with Dr. Michelle about the polpyp even if the HIDA is negative because you are having symptoms we see with inflammation of the gallbladder and you have now had pancreatitis twice. I am giving you a prescription for atorvastatin (also called Lipitor). You will take this once daily at bedtime. I have also given you a requisition to obtain a lipid panel and liver profile in 6 weeks and the results will be sent to Dr. Ramos. If you start to have symptoms like the pancreatitis may be recurring cut back to a clear liquid diet for 48-72 hours to see if it resolves....if not go to the ED or call Dr. Ramos. The ECHO ( ultrasound of the heart) shows that the heart squeezes noramlly. The murmur is due to a leaky mitral valve and this Murmur will get louder when the BP is high. It was high in the hospital because your BP pills were held. Your BP is still rather high. Please follow up in the office with Dr. Ramos in the next 5 -7 days to have the BP rechecked. Ideally the BP should be < 130/80. Pending Tests on Discharge: none Allergies/Adverse Reactions: Allergies fenofibrate Allergy (Verified 04/28/17 20:04) Unknown Penicillins Allergy (Verified 04/28/17 20:04) Other morphine Adverse Reaction (Verified 04/28/17 20:04) Vomiting naproxen sodium [From Aleve] Adverse Reaction (Verified 04/28/17 20:04) Other Medications to take at Discharge Acetaminophen [Tylenol] 650 mg PO BID 10/11/13 Aspirin [Aspirin, Baby] 81 mg PO DAILY@0800 10/11/13 Metoprolol Tartrate [Lopressor (beta dustin)] 50 mg PO BID 10/11/13 Multivit-Min/FA/Lycopene/Lut [Centrum Silver Tablet] 1 each PO QHS 10/11/13 Ramipril [Altace] 10 mg PO BID 10/11/13 Ranitidine [Zantac] 150 mg PO BID 07/22/15 Atorvastatin Calcium [Lipitor] 40 mg PO QHS 05/22/16 [place]-3/Dha/Epa/Fish Oil [Fish Oil 1,000 mg Softgel] 2 each PO DAILY 05/22/16 Amlodipine [Norvasc] 10 mg PO BID 12/16/16 Potassium 99 mg PO BID 12/16/16 Ibuprofen 600 mg PO TID PRN PRN 04/28/17 Zonisamide [Zonegran] 25 mg PO DAILY 04/29/17 Atorvastatin Calcium [Lipitor] 40 mg PO QHS #30 tab 05/01/17 The following prescriptions were given: Atorvastatin Calcium [Lipitor] 40 mg PO QHS #30 tab Orders to be completed after discharge: Hepatobilliary Img w/Pharm Int [NM] Location: None Selected Primary Care Physician: Compa Ramos MD [Primary Care Provider] - Please follow up with your Primary Care Physician in: 5-7 days Please Follow Up With: Sabino Michelle MD When: 2 weeks Proposed Discharge Date: 05/01/17
--- NOTE | 2017-05-01 12:35 | PCM.DC.SUM ---
Discharge Date and Diagnosis Date of Admission: 04/29/17 Date of Discharge: 05/01/17 - Primary Discharge Diagnosis Active and Suspected Problems Pancreatitis (Acute) - recurrent Abnormal LFT's Hyperglycemia - HGBA1C is 6.0 - Secondary Discharge Diagnosis Chronic Problems Mitral regurgitation (Chronic) mild - moderate Obesity (Chronic) CAD (coronary artery disease) (Chronic) - on medical management Hepatic steatosis (Chronic) Gallbladder polyp (Chronic) Hypertriglyceridemia (Chronic) Abdominal aortic aneurysm (Chronic) 4.5 cm HTN (hypertension) (Chronic) Sliding hiatal hernia (Chronic) Arthritis (Chronic) Recurrent pancreatitis Hospital Course and Treatment Imaging Results: Clinical Impression(s) from Imaging Studies Abdomen/Pelvis CT 04/28/17 20:16 IMPRESSION: There is mild pancreatitis, mainly seen around the head of the pancreas. There is no evidence of a pancreatic mass or pseudocyst. There is no ascites. There is no free air or significant lymphadenopathy. The liver is prominent in size with fatty infiltration. There is diverticulosis of the distal colon. There are no acute bowel abnormalities. There is a stable infrarenal abdominal aortic aneurysm. There is no fluid or inflammation around the infrarenal aorta. Electronically Signed: Kym Gudino MD at 21:48 EST Tel Direct: [phone], Service support , Chest CT 04/28/17 20:18 IMPRESSION: There are no acute abnormalities in the chest. There is no aortic aneurysm or dissection. There are no focal parenchymal abnormalities. There is no pleural effusion or significant lymphadenopathy. There are stable small lymph nodes in the mediastinum. Electronically Signed: Kym Gudino MD at 21:40 EST Tel Direct: [phone], Service support , Abdomen Ultrasound 04/30/17 10:27 IMPRESSION: Fatty infiltration of the liver. Polyp within the gallbladder. No shadowing stones. Prominent common bile duct. Electronically Signed: Asim Kidd MD at 16:10 EDT , Service support , Laboratory Results - last 24 hr 05/01/17 05/01/1705/01/18 05:10 05:10 05:10 WBC 7.0 RBC 4.25 L Hgb 14.9 Hct 41.1 MCV 96.7 H MCH 35.1 H MCHC 36.3 H RDW 12.7 RDW Differential 43.6 Plt Count 214 MPV 9.4 Immature Gran % (Auto) 0.300 Neut % (Auto) 53.9 Lymph % (Auto) 32.7 [place] % (Auto) 9.1 Eos % (Auto) 3.4 Baso % (Auto) 0.6 Absolute Neuts (auto) 3.8 Absolute Lymphs (auto) 2.30 Total Counted Not Reportable Sodium 138 Potassium 3.9 Chloride 107 Carbon Dioxide 25.0 Anion Gap 6 BUN 14 Creatinine 0.91 Estim Creat Clear Calc 82.45 Est GFR (MDRD) Af Amer 107 Est GFR (MDRD) Non-Af 89 BUN/Creatinine Ratio 15.4 Glucose 119 H Hemoglobin A1c Calcium 9.3 Lipase 224 05/01/17 05:10 WBC RBC Hgb Hct MCV MCH MCHC RDW RDW Differential Plt Count MPV Immature Gran % (Auto) Neut % (Auto) Lymph % (Auto) [place] % (Auto) Eos % (Auto) Baso % (Auto) Absolute Neuts (auto) Absolute Lymphs (auto) Total Counted Sodium Potassium Chloride Carbon Dioxide Anion Gap BUN Creatinine Estim Creat Clear Calc Est GFR (MDRD) Af Amer Est GFR (MDRD) Non-Af BUN/Creatinine Ratio Glucose Hemoglobin A1c 6.0 Calcium Lipase none Operations: None Procedures: 2-D Echocardiogram Summary of Care Provided: Mr. Wright is a 66-year-old male with a past medical history of hypertension, hypertriglyceridemia, coronary artery disease, hypercholesterolemia, hiatal hernia, infrarenal abdominal aortic aneurysm, diverticulosis and obesity who presented to the emergency department at [facility] on 04/29/2017 complaining of abdominal pain. The pain radiated to his back. He had been having intermittent nausea for the preceding 4-6 weeks. The nausea gets worse when he eats sausage. He was afebrile with a normal white blood cell count. Lipase was elevated at 4,639. CT scan of the abdomen and pelvis showed a stable 4.5 cm infrarenal abdominal aortic aneurysm, diverticulosis, fatty infiltration of the liver and stranding around the head of the pancreas. He was admitted to the hospital with pancreatitis presumed to be due to high TRIG. TRIG was 613. He has had 1 episode of pancreatitis in the past and he was told it was caused by Fenofibrate he was taking for high TRIG. He has had dyslipidemia in the past and had been on Atorvastatin but, he was no longer on this medication and does not know why is was stopped and who stopped it. Ultrasound of the right upper quadrant showed increased echogenicity of the liver consistent with fatty infiltration. Bile ducts were within normal limits. The gallbladder wall measured 3 mm. There was no pericholecystic fluid there was an echogenic non-shadowing polyp adherent to the gallbladder wall. Pancreas showed normal echogenicity and there was no demonstrated pancreatic mass or cyst. The common bile duct was prominent and measured 8 mm. Symptoms resolved fairly quickly and he was admitted on 04/29 and discharged on 05/01. Lipase at discharge was 224 and he was tolerating a low-fat diet with no nausea, vomiting, abdominal pain. Blood sugars were elevated during his hospital stay and a hemoglobin A1c was checked and was 6.0. He was restarted on atorvastatin to better control his lipids. I am suspicious that he has GB dysfunction due to the recurrent intermittent nausea with fatty foods and he may be passing gallstones because the common bile duct is prominent. He may also be transiently occluding the cystic duct because of the GB polyp.. He may need a HIDA scan. I advised him to follow up with Dr. Michelle in the near future for further work up. He was discharged home on 05/01/2017 with a prescription for atorvastatin 40 mg daily and instructions to follow a fat diet. Was given a requisition for a HIDA scan but told that Dr. Ramos may need to rise this with his insurance company since I am not his primary care physician. He will follow-up with Dr. Ramos in 5-[address] Michelle in 2 weeks. This note was generated with [employer] software. It may contain incorrect words, spelling, and punctuation that were not noted in checking the note before signing. Discharge Activity: Return to Normal Activity Call your doctor if you observe: Fever of 101 or Higher, Shortness of breath, Chest pain, Uncontrolled pain, - - nausea and vomiting, severe abdominal pain, shaking chills Home Medications: Medications to take at Discharge Acetaminophen [Tylenol] 650 mg PO BID 10/11/13 Aspirin [Aspirin, Baby] 81 mg PO DAILY@0800 10/11/13 Metoprolol Tartrate [Lopressor (beta dustin)] 50 mg PO BID 10/11/13 Multivit-Min/FA/Lycopene/Lut [Centrum Silver Tablet] 1 each PO QHS 10/11/13 Ramipril [Altace] 10 mg PO BID 10/11/13 Ranitidine [Zantac] 150 mg PO BID 07/22/15 Atorvastatin Calcium [Lipitor] 40 mg PO QHS 05/22/16 [place]-3/Dha/Epa/Fish Oil [Fish Oil 1,000 mg Softgel] 2 each PO DAILY 05/22/16 Amlodipine [Norvasc] 10 mg PO BID 12/16/16 Potassium 99 mg PO BID 12/16/16 Ibuprofen 600 mg PO TID PRN PRN 04/28/17 Zonisamide [Zonegran] 25 mg PO DAILY 04/29/17 Atorvastatin Calcium [Lipitor] 40 mg PO QHS #30 tab 05/01/17 Following Prescrptions Were Given to Patient: Atorvastatin Calcium [Lipitor] 40 mg PO QHS #30 tab Other Amb Orders: Hepatobilliary Img w/Pharm Int [NM] Location: None Selected Primary Care Physician: Compa Ramos MD [Primary Care Provider] - Please follow up with your Primary Care Physician in: 5-7 days Please Follow Up With: Sabino Michelle MD When: 2 weeks Patient Instructions: Understanding Pancreatitis, Discharge Instructions for Acute Pancreatitis Disposition: Home Minutes spent on discharge:: 30 Patient Condition:: Good Meaningful Use Info Meaningful Use Diagnoses (Choose all that apply): None applicable Code Visit Inpatient E&M: 33839 Disch Hosp
== END 2017-05-01 13:05 | disposition home or self-care (01) | DRG 440 ==
LOC: ED 21:10 → MS3 22:23
PROVIDERS: Admitting Provider Internal Medicine; Emergency Provider Emergency Medicine; Family Provider Family Medicine; PCP Family Medicine; Visit Provider Internal Medicine
DX: K85.90 Acute pancreatitis without necrosis or infection, unspecified (principal); K76.0 Fatty (change of) liver, not elsewhere classified; E66.9 Obesity, unspecified; E78.1 Pure hyperglyceridemia; Z68.33 Body mass index [BMI] 33.0-33.9, adult; I25.10 Atherosclerotic heart disease of native coronary artery without angina pectoris; I10 Essential (primary) hypertension; Z79.899 Other long term (current) drug therapy; E78.5 Hyperlipidemia, unspecified; I71.4 Abdominal aortic aneurysm, without rupture; R73.9 Hyperglycemia, unspecified; I34.0 Nonrheumatic mitral (valve) insufficiency; M19.90 Unspecified osteoarthritis, unspecified site; K82.4 Cholesterolosis of gallbladder
CPT/HCPCS: 36415; 71260; 74177; 76705; 80048; 80053; 80061; 82150; 83036; 83690; 84484; 85018; 85025; 87040; 93005; 93306; 97802; 99282; J7030; Q9957; Q9967; A4216; J2405

== ENCOUNTER → 2017-05-11 10:05 | Outpatient (CLI) | payer MEDICARE, SELFPAY ==
--- NOTE | 2017-05-11 10:08 | NM_ITS ---
CLINICAL: 66-year-old male with reported history of abdominal pain. RADIONUCLIDE HEPATOBILIARY SCINTIGRAPHY COMPARISON: Abdominal ultrasound report 04/30/2017, CT of the abdomen-pelvis report 04/28/2017 FINDINGS: Following the intravenous administration of 5.3 mCi of 99m Tc Mebrofenin, hepatobiliary images reveal: 1. Relatively prompt and homogeneous radiopharmaceutical concentration is noted by a normal sized liver. No parenchymal defects are identified. 2. Gallbladder activity is identified at 10 minutes post radiopharmaceutical administration. 3. Small intestinal tract is observed at 45 minutes following tracer injection. 4. Washout of the radiopharmaceutical by the hepatic parenchyma appears qualitatively normal. The patient was administered a fatty meal (8 ounces BOOST-30 grams fat). The post fatty meal consumption gallbladder ejection fraction calculated at 30 minutes was noted to be 70.0 % (normal greater than 30%). NM/Hepatobilliary Imaging IMPRESSION: 1. NORMAL 99m Tc Mebrofenin hepatobiliary imaging examination with fatty meal ingestion. A. A gallbladder ejection fraction calculated to be greater than 30% following the administration of a consumed fatty meal makes the probability of functional hepatobiliary disease (gallbladder and/or sphincter of Oddi dyskinesia) and/or organic hepatobiliary disease (chronic acalculous cholecystitis and/or cystic duct syndrome) to be low. (Anton and Misbah, J Nucl Med 43: 1603, 2002). Electronically Signed: Casey Adair DO at 12:56 EDT Tel , Service support ,
== END ==
PROVIDERS: Family Provider Family Medicine; PCP Family Medicine; Visit Provider Family Medicine
DX: K82.4 Cholesterolosis of gallbladder (principal); R10.9 Unspecified abdominal pain
CPT/HCPCS: 78226; 78227; A9537

== ENCOUNTER → 2017-05-21 08:30 | Outpatient (CLI) | payer MEDICARE, SELFPAY ==
[2017-05-21 10:34] LABS: ALB/GLOB Ratio 1.1 RATIO (0.9-2.4); AST(SGOT) 27 U/L (15-37); Alanine Aminotransfer ALT/SGPT 68 U/L (16-61); Albumin, Serum 4.1 g/dL (3.2-5.0); Alkaline Phosphatase 77 U/L (45-117); Amylase 39 U/L (25-115); Anion Gap 7 (5-15); BUN 21 mg/dL (7-18); BUN/Creat Ratio 22.1 RATIO (10-20); Calcium,Total 9.5 mg/dL (8.5-10.1); Chloride 105 mmol/L (98-107); Creatinine, Serum 0.95 mg/dL (0.70-1.30); EST Glomerular Filtration Rate 84 mL/min (>60); Est Glom Filt Rate - Afr Amer 102 mL/min (>60); Globulin 3.7 g/dL (2.2-4.2); Glucose 128 mg/dL (74-106); Lipase 232 U/L (73-393); Potassium 4.3 mmol/L (3.5-5.1); Protein, Total 7.8 g/dL (6.4-8.2); Sodium Level 138 mmol/L (136-145)
== END ==
PROVIDERS: Family Provider Family Medicine; PCP Family Medicine; Visit Provider Surgery
DX: K85.90 Acute pancreatitis without necrosis or infection, unspecified (principal)
CPT/HCPCS: 36415; 80053; 82150; 83690

== ENCOUNTER 2017-05-22 10:14 | Day surgery (SDC) | payer MEDICARE, SELFPAY ==
[2017-05-22] VITALS (11 sets, daily range): BP systolic 92–128; BP diastolic 57–85; PULSE 57–84; RESP 15–18; TEMP 35.9–36.3; O2SAT 88–97; BMI 32.2
--- NOTE | 2017-05-22 | GALL_PTH ---
PATIENT: LEONA PASCUAL LOC: [facility] [place] U#:[id number] AGE/SX: 66/M ROOM: RE05/22/[address]: Dr. Sabino Michelle MD : 1950 BED: DIS: 05/22/2017 SPEC #: [id number] RECD: 05/22/17 14:42 STATUS: RANDY REAbiodun #: [id number] OLEGARIO: 05/22/17 00:[address]: Sabino Michelle DEPT: SURGICAL PATHOLOGY RECD BY: Kristian Bautista ENTERED: 05/22/17 14:42 SP TYPE: ANNEMARIE VILLAR DR: Dr. Compa Ramos MD Tissues: Gallbladder, NOS Procedures: Surgery Specimen Level III HEADER OPERATION: Laparoscopic cholecystectomy with IOC and umbilical hernia repair PRE-OP DIAGNOSIS: Gallstone pancreatitis TISSUE SUBMITTED: Gallbladder MICROSCOPIC DIAGNOSIS Gallbladder: Chronic cholecystitis, cholelithiasis and focal cholesterolosis. SJ:maritza 05/23/17 MICROSCOPIC DESCRIPTION Slides are reviewed. GROSS DESCRIPTION Received is one container labeled with the patient's name and designated gallbladder. The specimen consists of a gallbladder measuring 12 cm in length and 5 cm in diameter. The external surface is pink-ontiveros, smooth and glistening for the most part. Focally it is granular, hemorrhagic and contains cautery artifact. The gallbladder is distended with green-yellow mucoid bile and contains two irregular small black stones measuring in aggregate 0.5 x 0.2 x 0.2 cm and 0.2 cm in greatest dimension. The mucosa shows minute, yellowish polypoid lesions suspicious for cholesterolosis. The gallbladder wall measures up to 0.3 cm in thickness. In Store Representative sections from the gallbladder and the cystic duct are submitted in one cassette. / SJ:rg 05/22/17 TC:3 [facility]: [id number]
--- NOTE | 2017-05-22 11:30 | RAD_ITS ---
STUDY: INTRAOPERATIVE CHOLANGIOGRAM. REASON FOR EXAM: Male, 66 years old. Laparoscopic cholecystectomy. FLUOROSCOPY TIME (if supplied): (0:04) minutes/seconds TECHNIQUE: An intraoperative cholangiogram was performed by the surgeon. Imaging was submitted. COMPARISON: None. FINDINGS: The visualized intrahepatic ducts are unremarkable. The common bile duct is unremarkable as well. There is free flow of contrast into the duodenum. No obstruction is seen. RAD/Cholangiogram/ O R,Initial IMPRESSION: Unremarkable intraoperative cholangiogram. Electronically Signed: Ravinder Newsome MD at 14:10 EDT Tel [phone], Service support ,
--- NOTE | 2017-05-22 11:40 | PCM.OPRPT ---
Problem List (1) Gallstone pancreatitis Status: Acute Report of Operation Date of Procedure: 05/22/17 Pre-Operative Diagnosis: k85.10 gallstone pancreatitis Post-Operative Diagnosis: Same Surgery/Procedure Performed:: 72076 laparoscopic cholecystectomy with intraoperative cholangiograms. umbilical hernia repair Type of Anesthesia:: General Description of Procedure: Patient was brought into the operating room placed in supine position under excellent general endotracheal intubation the abdomen was sterilely prepped and draped in usual fashion. Local was injected supraumbilically curvilinear incision was made dissection was carried down to the fascia I dissected an umbilical hernia free from the umbilicus of the fascia with a [place] place a varies needle in the abdomen the abdomen was insufflated 15 torr and a 10/12 trocar was placed without difficulty. Patient placed in the head up and rotated to the left a subxiphoid #5 trochars placed, inferior to this another #5 trocar was placed, laterally a #5 trocar was placed. All these under direct visualization without injury to underlying structures. Fundus of the gallbladder was grasped and retracted in cephalad direction the patient was placed in the head up and rotated to the left position I dissected out the cystic duct place hemoclips proximally on the duct cezar the duct place an angiogram catheter through the skin claims gram catheter through this and shot a cholangiogram which showed normal ductal anatomy I remove the glans gram catheter placed another hemoclips distally on the duct ligated the duct identified the cystic artery place hemoclips proximal distally ligated the artery deliver the gallbladder from the gallbladder bed with use of electrocautery I had excellent hemostasis and I did not spill any bile or stones. I placed a specimen specimen bag. I delivered through the umbilical port without difficulty. I reinspected the right upper quadrant good hemostasis was noted. I remove the trochars under direct visualization good hemostasis was noted. I closed the umbilical defect with interrupted #1 Nurolon's. Skin incisions were closed with a particular stitches of 4-0 Monocryl. Steri-Strips are applied sterile dressings were applied and the patient tolerated the procedure well. - Admit VTE Documentation VTE Present on Admission: No VTE Mechan Device Prophylaxis: SCD's VTE Pharm Prophylaxis ordered?: No Reason prophylaxis not ordered:: Treatment Not Indicated
[2017-05-22] MEDS: Clindamycin 900 MG/50 ML BAG 75 MG IV (11:43)
--- NOTE | 2017-05-22 11:45 | DCINST_ITS ---
Discharge Diet: Light diet - advance as tolerated Discharge Activity: May Not Drive - for 2-3 days or while taking narcotic pain medications., - - Do not drive, work heavy equipment or sign legal documents for 24 hours. May shower in (days): 1 - with the bandage in place. Additional Activity Instructions:: Pain medication may cause nausea. You should typically eat light foods as you take your pain medications. Pain medication may also cause constipation. If this is a problem for you, please discuss with your doctor. Call your doctor if your incision/area has: Continuous Slow Oozing, Sudden Increased Bleeding, Increased Pain/ Swelling, Increased Redness, Foul Smelling Discharge Call your doctor if you observe: Fever of 101 or Higher Suture Line Care: Avoid Pulling/Pushing, Avoid Pinching/Bending Additional Dressing/Incision Instructions:: Leave operative bandaids on for 2 days. When you remove dressing, leave Steri-Strips on until your follow-up appointment, or until the Steri-Strips fall off on their own. Allergies/Adverse Reactions: Allergies fenofibrate Allergy (Verified 05/21/17 11:20) Unknown Penicillins Allergy (Verified 05/21/17 11:20) Other morphine Adverse Reaction (Verified 05/21/17 11:20) Vomiting naproxen sodium [From Aleve] Adverse Reaction (Verified 05/21/17 11:20) Other Medications to take at Discharge Acetaminophen [Tylenol] 1,300 mg PO BID 10/11/13 Aspirin [Aspirin, Baby] 81 mg PO DAILY@0800 10/11/13 Metoprolol Tartrate [Lopressor (beta dustin)] 50 mg PO BID 10/11/13 Multivit-Min/FA/Lycopene/Lut [Centrum Silver Tablet] 1 ea PO QHS 10/11/13 Ramipril [Altace] 10 mg PO BID 10/11/13 Ranitidine [Zantac] 150 mg PO BID 07/22/15 [place]-3/Dha/Epa/Fish Oil [Fish Oil 1,000 mg Softgel] 2 ea PO DAILY 05/22/16 Amlodipine [Norvasc] 10 mg PO BID 12/16/16 Potassium 99 mg PO BID 12/16/16 Ibuprofen 600 mg PO TID PRN PRN 04/28/17 Zonisamide [Zonegran] 25 mg PO QHS 03/11/18 Atorvastatin Calcium [Lipitor] 40 mg PO QHS #30 tab 05/01/17 Bee Pollen 550 mg PO DAILY 05/21/17 Oxycodone HCl/Acetaminophen [Percocet 5/325] 1 - 2 tab PO Q4H PRN PRN 4 Days # 30 tab 05/22/17 The following prescriptions were given: Oxycodone HCl/Acetaminophen [Percocet 5/325] 1 - 2 tab PO Q4H PRN PRN 4 Days # 30 tab PRN Reason: Pain Primary Care Physician: Compa Ramos MD [Primary Care Provider] - Please Follow Up With: Sabino Michelle MD - Please call [phone] to schedule an appointment. When: 7 days after your surgery.
--- NOTE | 2017-05-22 13:12 | EKG12_ITS ---
Test Reason : POST OP Blood Pressure : / mmHG Vent. Rate : 065 BPM Atrial Rate : 065 BPM P-R Int : 202 ms QRS Dur : 092 ms QT Int : 392 ms P-R-T Axes : 044 -17 011 degrees QTc Int : 407 ms Normal sinus rhythm Inferior infarct (cited on or before 28-APR-2017) Abnormal ECG When compared with ECG of 28-APR-2017 20:26, No significant change was found Confirmed by CLARITA GOFF, LIBRADO ([id number]), publication editor JONNIE LOPEZ ([id number]) on 05/25/2017 1:11:10 PM Referred By: Sabino Michelle Confirmed By:LIBRADO OTTO MD
[2017-05-22] MEDS: Ipratropium/Albuterol Sulfate 3 ML AMPUL.NEB INHALATION (13:39)
--- NOTE | 2017-05-22 13:58 | NURSING ---
paged cps a second time at this time for ekg and duoneb aerosol rx.
== END 2017-05-22 18:33 | disposition home or self-care (01) ==
LOC: SDC 10:14 → AC 10:16
PROVIDERS: Anesthesiology; Family Provider Family Medicine; PCP Family Medicine; Visit Provider Surgery
PROC: (CPT 47610; principal; 2017-05-22 11:40)
DX: K80.10 Calculus of gallbladder with chronic cholecystitis without obstruction (principal); K85.10 Biliary acute pancreatitis without necrosis or infection; K42.9 Umbilical hernia without obstruction or gangrene; I34.0 Nonrheumatic mitral (valve) insufficiency; E66.9 Obesity, unspecified; Z68.33 Body mass index [BMI] 33.0-33.9, adult; I25.10 Atherosclerotic heart disease of native coronary artery without angina pectoris; Z87.19 Personal history of other diseases of the digestive system; E78.00 Pure hypercholesterolemia, unspecified; I10 Essential (primary) hypertension; I71.4 Abdominal aortic aneurysm, without rupture; K76.0 Fatty (change of) liver, not elsewhere classified; M19.90 Unspecified osteoarthritis, unspecified site; K44.9 Diaphragmatic hernia without obstruction or gangrene; R01.1 Cardiac murmur, unspecified; J45.909 Unspecified asthma, uncomplicated; K21.9 Gastro-esophageal reflux disease without esophagitis; N40.0 Benign prostatic hyperplasia without lower urinary tract symptoms; Z86.73 Personal history of transient ischemic attack (TIA), and cerebral infarction without residual deficits; Z79.82 Long term (current) use of aspirin; Z79.899 Other long term (current) drug therapy
CPT/HCPCS: 47563; 49652; 36415; 74300; 76000; 84484; 88304; 93005; 94640; J7120

== ENCOUNTER → 2017-08-17 08:46 | Outpatient (CLI) | payer MEDICARE, SELFPAY ==
--- NOTE | 2017-08-17 08:47 | ECHOTEE_ITS ---
Reason For Study: MVP Medication CHAIM probe passed without difficulty. No complications were noted. Cetacaine Topical [place] given X3 orally. Versed 2 mg given slow IVP. Fentanyl 50 mcg given slow IVP. Performed a rapid injection of agitated mix of 9 cc saline and 1cc air to assess for atrial septal defect. Left Ventricle Normal LV size. Left ventricular systolic function is normal. The estimated ejection fraction is 60 %. No regional wall motion abnormalities noted. Right Ventricle Normal RV size. Normal systolic function. Atria Bubble contrast study negative for right to left interatrial shunt. The left atrium is moderately enlarged. No thrombus is detected in the left atrial appendage. Normal right atrium. Mitral Valve Moderate mitral valve prolapse, posterior leaflet. Ruptured chordae tendineae of mitral valve. Moderately severe (3+) eccentric mitral valve insufficiency. Tricuspid Valve Normal tricuspid valve. Mild (1+) tricuspid valve insufficiency. Aortic Valve Normal aortic valve. Trisinus/trileaflet aortic valve. Pulmonic Valve Normal pulmonic valve. Vessels Normal aortic root. The pulmonary artery is normal size. Pericardium No pericardial effusion. Interpretation Summary Normal LV size. Left ventricular systolic function is normal. The estimated ejection fraction is 60 %. Moderate mitral valve prolapse, posterior leaflet Ruptured chordae tendineae of mitral valve Moderately severe (3+) eccentric mitral valve insufficiency. Ordering Physician: Beverly Odonnell/Mark Karimi Referring Physician: GERARD MAN Performed By: Kareen Alcantara, JO, RVT ??? Reason For Study: MVP Interpretation Summary Normal LV size. Left ventricular systolic function is normal. The estimated ejection fraction is 60 %. Moderate mitral valve prolapse, posterior leaflet Ruptured chordae tendineae of mitral valve Moderately severe (3+) eccentric mitral valve insufficiency. Ordering Physician: Beverly Odonnell/Mark Karimi Referring Physician: GERARD MAN Performed By: Kareen Alcantara, JO, RVT
== END ==
PROVIDERS: Family Provider Family Medicine; PCP Family Medicine; Visit Provider Physician Assistant Medical
DX: I34.1 Nonrheumatic mitral (valve) prolapse (principal)
CPT/HCPCS: 93312; 93320; 93325; A4216

== ENCOUNTER → 2017-08-20 06:50 | Day surgery (SDC) | payer MEDICARE, SELFPAY ==
--- NOTE | 2017-08-17 11:50 | RAD_ITS ---
STUDY: X-RAY CHEST REASON FOR EXAM: Male, 67 years old. Mitral valve insufficiency TECHNIQUE: Frontal and lateral views of the chest. COMPARISON: None. FINDINGS: The lungs are clear and expanded. There is no demonstrated pleural abnormality. Normal size heart. Normal mediastinum and duran. Normal visualized pulmonary arteries. Normal visualized aortic arch and descending thoracic aorta. Normal visualized thoracic spine. Normal visualized ribs, clavicles, and shoulders. There is no demonstrated abnormality of the visualized soft tissue structures of the upper abdomen. RAD/Chest PA and Lateral IMPRESSION: No acute cardiopulmonary disease. Electronically Signed: Vasile Sands DO at 11:43 EDT , Service support ,
[2017-08-17 12:44] LABS: Hematocrit 41.2 % (40-54); Hemoglobin 14.4 g/dl (13.0-16.5); Mean Corpuscular Hgb 33.7 pg (27.0-32.0); Mean Corpuscular Volume 96.5 fL (80-94); Mean Platelet Vol. 9.4 fl (6.2-12.0); Platelet Count 184 K/mm3 (150-450); RBC Distribution Width SD 44.7 fl (35.1-43.9); Red Blood Count 4.27 M/mm3 (4.6-6.2); White Blood Count 5.5 K/mm3 (4.4-11.0)
[2017-08-17 12:45] LABS: Scan Indicated on CBC? Y/N NO
[2017-08-17 12:55] LABS: Anion Gap 6 (5-15); BUN 20 mg/dL (7-18); BUN/Creat Ratio 23.2 RATIO (10-20); Calcium,Total 9.2 mg/dL (8.5-10.1); Chloride 107 mmol/L (98-107); Creatinine, Serum 0.86 mg/dL (0.70-1.30); EST Glomerular Filtration Rate 94 mL/min (>60); Est Glom Filt Rate - Afr Amer 114 mL/min (>60); Glucose 114 mg/dL (74-106); Potassium 4.3 mmol/L (3.5-5.1); Sodium Level 140 mmol/L (136-145)
[2017-08-17 15:08] VITALS: BMI 32.3
--- NOTE | 2017-08-20 08:17 | PCM.CONS.C ---
Reason for Consult Date of Consultation: 08/20/17 History of Present Illness: The patient is a 67 year old M who presents to the for a cardiovascular follow-up. He has a history of mild coronary artery disease, abdominal aortic aneurysm and hypertension. From a cardiac standpoint, patient is doing well. He does not have any chest discomfort/heaviness/tightness. His exercise tolerance is stable for his age. He had been having mildly worsening shortness of breath and he underwent a trans esophageal echocardiogram which demonstrated worsening mitral regurgitation and possible evidence of chordal leaflet rupture. He was therefore referred for further cardiac evaluation. He denies any PND. He does not have any orthopnea. He does not have any symptoms of congestive heart failure. He does not have any palpitations that he is aware of. He does not have any lightheadedness or dizziness. He does not have any near-syncope or syncope. He does not have any lower extremity edema. He does not have any symptoms of claudication. Past Medical History Allergies/Adverse Reactions: Allergies fenofibrate Allergy (Verified 06/22/17 12:58) Unknown Penicillins Allergy (Verified 06/22/17 12:58) Other morphine Adverse Reaction (Verified 06/22/17 12:58) Vomiting naproxen sodium [From Aleve] Adverse Reaction (Verified 06/22/17 12:58) Other Home Medications: Ambulatory Orders Medication Instructions Recorded Acetaminophen [Tylenol] 1,300 mg PO BID 10/11/13 Aspirin [Aspirin, Baby] 81 mg PO DAILY@0800 10/11/13 Metoprolol Tartrate [Lopressor 50 mg PO BID 10/11/13 (beta dustin)] Multivit-Min/FA/Lycopene/Lut 1 ea PO QHS 10/11/13 [Centrum Silver Tablet] Ramipril [Altace] 10 mg PO BID 10/11/13 Ranitidine [Zantac] 150 mg PO BID 07/22/15 [place]-3/Dha/Epa/Fish Oil [Fish Oil 2 ea PO DAILY 05/22/16 1,000 mg Softgel] Potassium 99 mg PO BID 12/16/16 Ibuprofen 600 mg PO TID PRN PRN 04/28/17 Zonisamide [Zonegran] 25 mg PO QHS 04/29/17 Atorvastatin Calcium [Lipitor] 40 mg PO QHS #30 tab 05/01/17 Bee Pollen 550 mg PO DAILY 05/21/17 amlodipine 10 mg tablet 10 mg PO QDAY #90 tab 06/22/17 Past Medical History (Chronic Problems): Chronic Problems (Last Updated 06/22/17 @ 13:15 by YINA Perez) Hypertension (Chronic) Atherosclerotic heart disease of [place] coronary artery without angina pectoris (Chronic) Mitral regurgitation (Chronic) Obesity (Chronic) CAD (coronary artery disease) (Chronic) Hepatic steatosis (Chronic) Gallbladder polyp (Chronic) Hypertriglyceridemia (Chronic) HLD (hyperlipidemia) (Chronic) Abdominal aortic aneurysm (Chronic) 4 cm HTN (hypertension) (Chronic) Sliding hiatal hernia (Chronic) Arthritis (Chronic) Surgical History: - - 1. cardiac cath in 2007 - normal 2. colon polypectomy - 08/2011 - benign 3. hemorrhoidectomy 4. umbilical hernia repair 5. R rotator cuff repair - 08/2013 6. 2 surgeries on the R knee - arthroscopic Psychiatric History: No pertinent psych hx - *Family History Paternal Family History: Family History (Last Reviewed 06/22/17 @ 12:59 by Lainey Farias) Mother Diabetes Father Heart disease History Items: Diabetes, Heart Disease, Hypertension Maternal Family History: Family History (Last Reviewed 06/22/17 @ 12:59 by Lainey Farias) Mother Diabetes Father Heart disease History Items: Diabetes, Heart Disease, Hypertension Smoking Status: Never smoker Review of Systems - Review of Systems General: Denies: Fever, Night Sweats, Fatigue Cardiovascular: Reports: Shortness of Breath. Denies: Chest Discomfort, Orthopnea, PND, Peripheral Edema, Palpitations, Lightheadedness, Dizziness, Near Syncope, Syncope Respiratory: Denies: Cough, Sputum Production, Hemoptysis Gastrointestinal: Denies: Hematemesis, Hematochezia, Melena Genitourinary: Denies: Dysuria, Hematuria Skin: Denies: Rash Subjectve: Pleasant gentleman in no apparent distress Objective: Weight: 225 lb Body Mass Index (BMI) 32.3 General: Awake, Alert, Oriented x 3 HEENT: PERRL, EOMI, Sclera Non Icteric Neck: Supple, Good ROM, No Lymph Node Enlargement Lungs: Clear to auscultation Cardiovascular: Regular Rhythm, Normal S1, Normal S2, No Rubs, No Gallops Murmur Murmur: Grade 2/6, Holosystolic, [place] Vascular: No Carotid Bruits, Normal Femoral Pulses, Normal Radial Pulses, Normal Dorsalis Pedal Pulse, Normal Posterior Tibial Pulses Abdomen: Bowel Sounds Present, Soft, Non Tender, No HSM, No Organomegaly Extremities: No Cyanosis, No Clubbing, No edema Neurological: No Focal Motor or Sensory Deficit Rhythm: EKG: ECHO: Stress Test: Cardiac Cath: PCI: CT Surgery: Holter monitor: EPS: PPM: CXR: Chest CT Scan: Assessment/Plan 1. Mitral valve disease. Patient has evidence of mitral valve disease with posterior mitral valve leaflet prolapse. Recent transesophageal echocardiogram demonstrated worsening of the regurgitation and the present catheterization is undertaken to further assess his coronary anatomy before deciding on eventual surgery. 2. Hypertension. His blood pressure appears well-controlled on the current medical therapy and I will not suggest that we make any changes. 3. Atherosclerotic cardiovascular disease. Patient has evidence of atherosclerotic cardiovascular disease without any evidence of angina present cardiac catheterization is being undertaken to reinforce reassess the above. 4. Abdominal aortic aneurysm. Patient has a 4.5 cm abdominal aortic aneurysm which will be followed. His benefits alternatives have been explained to the patient he understands and agrees to proceed.
--- NOTE | 2017-08-20 08:21 | CON.PCM_ITS ---
Reason for Consult Date of Consultation: 08/20/17 History of Present Illness: The patient is a 67 year old M who presents to the for a cardiovascular follow- up. He has a history of mild coronary artery disease, abdominal aortic aneurysm and hypertension. From a cardiac standpoint, patient is doing well. He does not have any chest discomfort/heaviness/tightness. His exercise tolerance is stable for his age. He had been having mildly worsening shortness of breath and he underwent a trans esophageal echocardiogram which demonstrated worsening mitral regurgitation and possible evidence of chordal leaflet rupture. He was therefore referred for further cardiac evaluation. He denies any PND. He does not have any orthopnea. He does not have any symptoms of congestive heart failure. He does not have any palpitations that he is aware of. He does not have any lightheadedness or dizziness. He does not have any near-syncope or syncope. He does not have any lower extremity edema. He does not have any symptoms of claudication. Past Medical History Allergies/Adverse Reactions: Allergies fenofibrate Allergy (Verified 06/22/17 12:58) Unknown Penicillins Allergy (Verified 06/22/17 12:58) Other morphine Adverse Reaction (Verified 06/22/17 12:58) Vomiting naproxen sodium [From Aleve] Adverse Reaction (Verified 06/22/17 12:58) Other Home Medications: Ambulatory Orders Medication Instructions Recorded Acetaminophen [Tylenol] 1,300 mg PO BID 10/11/13 Aspirin [Aspirin, Baby] 81 mg PO DAILY@0800 10/11/13 Metoprolol Tartrate [Lopressor 50 mg PO BID 10/11/13 (beta dustin)] Multivit-Min/FA/Lycopene/Lut 1 ea PO QHS 10/11/13 [Centrum Silver Tablet] Ramipril [Altace] 10 mg PO BID 10/11/13 Ranitidine [Zantac] 150 mg PO BID 07/22/15 [place]-3/Dha/Epa/Fish Oil [Fish Oil 2 ea PO DAILY 05/22/16 1,000 mg Softgel] Potassium 99 mg PO BID 12/16/16 Ibuprofen 600 mg PO TID PRN PRN 04/28/17 Zonisamide [Zonegran] 25 mg PO QHS 04/29/17 Atorvastatin Calcium [Lipitor] 40 mg PO QHS #30 tab 05/01/17 Bee Pollen 550 mg PO DAILY 05/21/17 amlodipine 10 mg tablet 10 mg PO QDAY #90 tab 06/22/17 Past Medical History (Chronic Problems): Chronic Problems (Last Updated 06/22/17 @ 13:15 by YINA Perez) Hypertension (Chronic) Atherosclerotic heart disease of [place] coronary artery without angina pectoris (Chronic) Mitral regurgitation (Chronic) Obesity (Chronic) CAD (coronary artery disease) (Chronic) Hepatic steatosis (Chronic) Gallbladder polyp (Chronic) Hypertriglyceridemia (Chronic) HLD (hyperlipidemia) (Chronic) Abdominal aortic aneurysm (Chronic) 4 cm HTN (hypertension) (Chronic) Sliding hiatal hernia (Chronic) Arthritis (Chronic) Surgical History: - - 1. cardiac cath in 2007 - normal 2. colon polypectomy - 2011 - benign 3. hemorrhoidectomy 4. umbilical hernia repair 5. R rotator cuff repair - 08/2013 6. 2 surgeries on the R knee - arthroscopic Psychiatric History: No pertinent psych hx - *Family History Paternal Family History: Family History (Last Reviewed 06/22/17 @ 12:59 by Lainey Farias) Mother Diabetes Father Heart disease History Items: Diabetes, Heart Disease, Hypertension Maternal Family History: Family History (Last Reviewed 06/22/17 @ 12:59 by Lainey Farias) Mother Diabetes Father Heart disease History Items: Diabetes, Heart Disease, Hypertension Smoking Status: Never smoker Review of Systems - Review of Systems General: Denies: Fever, Night Sweats, Fatigue Cardiovascular: Reports: Shortness of Breath. Denies: Chest Discomfort, Orthopnea, PND, Peripheral Edema, Palpitations, Lightheadedness, Dizziness, Near Syncope, Syncope Respiratory: Denies: Cough, Sputum Production, Hemoptysis Gastrointestinal: Denies: Hematemesis, Hematochezia, Melena Genitourinary: Denies: Dysuria, Hematuria Skin: Denies: Rash Subjectve: Pleasant gentleman in no apparent distress Objective: Weight: 225 lb Body Mass Index (BMI) 32.3 General: Awake, Alert, Oriented x 3 HEENT: PERRL, EOMI, Sclera Non Icteric Neck: Supple, Good ROM, No Lymph Node Enlargement Lungs: Clear to auscultation Cardiovascular: Regular Rhythm, Normal S1, Normal S2, No Rubs, No Gallops Murmur Murmur: Grade 2/6, Holosystolic, [place] Vascular: No Carotid Bruits, Normal Femoral Pulses, Normal Radial Pulses, Normal Dorsalis Pedal Pulse, Normal Posterior Tibial Pulses Abdomen: Bowel Sounds Present, Soft, Non Tender, No HSM, No Organomegaly Extremities: No Cyanosis, No Clubbing, No edema Neurological: No Focal Motor or Sensory Deficit Rhythm: EKG: ECHO: Stress Test: Cardiac Cath: PCI: CT Surgery: Holter monitor: EPS: PPM: CXR: Chest CT Scan: Assessment/Plan 1. Mitral valve disease. Patient has evidence of mitral valve disease with posterior mitral valve leaflet prolapse. Recent transesophageal echocardiogram demonstrated worsening of the regurgitation and the present catheterization is undertaken to further assess his coronary anatomy before deciding on eventual surgery. 2. Hypertension. His blood pressure appears well-controlled on the current medical therapy and I will not suggest that we make any changes. 3. Atherosclerotic cardiovascular disease. Patient has evidence of atherosclerotic cardiovascular disease without any evidence of angina present cardiac catheterization is being undertaken to reinforce reassess the above. 4. Abdominal aortic aneurysm. Patient has a 4.5 cm abdominal aortic aneurysm which will be followed. His benefits alternatives have been explained to the patient he understands and agrees to proceed.
--- NOTE | 2017-08-20 09:21 | CL.D_ITS ---
Patient Name: LEONA PASCUAL Study Date: 08/20/2017 Performing: Mark Karimi MD Ht: 70.07 inches 178 cm : 1950 Wt: 224.87 lbs 102 kg Age: 67 Gender: male BSA: 2.2 PROCEDURE(S) PERFORMED [id number]/LHC/COR/LV CLINICAL PROFILE AND INDICATIONS Indications: Pre-Operative Evaluation Heart Failure: None Stress/Imaging Stress/Image Study Performed: No Angina Classification Anginal Classification w/in 2 Weeks: No symptoms CAD Presentations: No Sxs, no angina. 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 The risks and benefits of the procedure as well as a full d escription of our services here and current unavailability of surgical backup were fully explained to the patient and/or their significant other prior to the catheterization. The Timeout was completed, verifying the correct patient and procedure. The patient's procedural site was prepped and draped in the usual fashion. Local anesthetic was given subcutaneously to right groin region with Lidocaine 2%. Using a modified Seldinger technique, arterial access was obtained via the right femoral artery, a 5 Fr sheath was inserted Venous access was obtained via the right femoral vein, a 7Fr sheath was inser ju. A 7Fr thermal dilution catheter was inserted and right heart pressures were recorded, it was the n advanced to PA position for cardiac outputs. Thermal dilution cardiac outputs were then recorded. O 2 saturations were then obtained. The Thermal dilution catheter was then removed. Left Coronary Arter y selective angiography was performed in multiple views using a 5 Fr. JL4 catheter. Right Coronary Ar marie selective angiography was then performed in multiple views using a 5 Fr. 3DRC (Jonnie) cathete r. Left Ventriculography was performed in ROWAN projection using a 5 Fr. Pigtail catheter. LV to AO pul lback pressures were then recorded.The arterial sheath was pulled and a Mynx closure device was deplo yed for hemostasis CORONARY ANGIOGRAPHY DOMINANCE: Right Dominant LEFT HEART ASSESSMENT Left Ventricular Ejection Fraction: by LV Gram 60 % Normal LV wall motion Normal Left Ventricular systolic function RIGHT HEART ASSESSMENT Thermal CO: 5.64 Thermal CI: 2.56 Raulito CO: 4.15 Raulito CI: 1.89 PW: 24 PA: 38/18 29 RV: 43/12 19 RA: 20/16 16 PVR: 71 SVR: 1333 Right Heart pressures - elevated LEFT MAIN: Angiographically normal LEFT ANTERIOR DECENDING ARTERY: MID LAD: 75 % Stenosis CIRCUMFLEX ARTERY: Mild luminal irregularities RIGHT CORONARY ARTERY: Mild luminal irregularities VALVE FINDINGS: Mitral Valve Insufficiency - Grade 3 COMPLICATIONS No Complications PROCEDURE MEDICATIONS Versed 1 mg IV SUMMARY OF HEMODYNAMIC DATA Time AIR REST ECG 07:31:37 RA 20/ (16) SV 08:35:28 RV 43/12, 19 08:36:11 PW (24) PV 08:37:56 PA 38/18 (29) PA 08:39:31 PA 45/25 (35) 08:44:31 PA 44/12 (27) 08:44:52 PA 23/9 (17) 08:45:02 AO 137/91 (110) SA 08:46:35 LV 115/20, 25 08:56:26 LV 123/8, 28 08:56:57 LV 105/25, 31 08:57:48 LV 97/23, 26 08:57:56 LVp 119/10, 29 08:58:23 AOp 127/77 (99) 08:58:28 09:21:28 Type SV CO (l/m) CI (l/m/ HR Time AIR REST Thermal 95.60 5.64 2.56 59 07:31:37 Raulito 70.30 4.15 1.89 59 07:31:37 Label % O2 Pres/Loc Time AIR REST AO 96 PV 09:01:41 RA 60 SV 09:01:49 PA 61 PA 09:01:59 Signed By Mark Karimi MD On 08/20/2017 09:21:54 Signed By Mark Karimi MD On 08/20/2017 09:20:40 Mark Karimi MD
[2017-08-20 20:31] LABS: Blood Gas Specimen Type VEN; VBG BASE EXCESS -1 mmol/L (-1.0-3.5); VBG Bicarbonate 24 mmol/L (22-26); VBG Oxygen Content 25 mmol/L (23-33); VBG PO2 34 mmHg (25-40); VBG SO2 63 % (50-70); VBG pCO2 42.4 mmHg (41-51); VBG pH 7.36 (7.32-7.42)
[2017-08-20 20:31] LABS: Blood Gas Specimen Type VEN; VBG BASE EXCESS -2 mmol/L (-1.0-3.5); VBG Bicarbonate 24 mmol/L (22-26); VBG Oxygen Content 25 mmol/L (23-33); VBG PO2 34 mmHg (25-40); VBG SO2 61 % (50-70); VBG pH 7.35 (7.32-7.42)
[2017-08-20 20:31] LABS: Base Excess -3 mmol/L (-2 to +2); Bicarbonate 22.2 mmol/L (22-26); Blood Gas Specimen Type ART; PO2 83 mmHG (75-100); SO2 96 % (95-99); Total Carbon Dioxide 23 mmol/L; pH 7.39 (7.35-7.45)
[2017-08-20 20:31] LABS: Blood Gas Specimen Type VEN; VBG BASE EXCESS -3 mmol/L (-1.0-3.5); VBG Bicarbonate 23 mmol/L (22-26); VBG Oxygen Content 24 mmol/L (23-33); VBG PO2 33 mmHg (25-40); VBG SO2 60 % (50-70); VBG pCO2 42.2 mmHg (41-51); VBG pH 7.34 (7.32-7.42)
== END ==
PROVIDERS: Family Provider Family Medicine; PCP Family Medicine; Visit Provider Internal Medicine Cardiovascular Disease
DX: Z01.810 Encounter for preprocedural cardiovascular examination (principal); I05.9 Rheumatic mitral valve disease, unspecified; I10 Essential (primary) hypertension; I25.10 Atherosclerotic heart disease of native coronary artery without angina pectoris; I71.4 Abdominal aortic aneurysm, without rupture; I34.0 Nonrheumatic mitral (valve) insufficiency; E66.9 Obesity, unspecified; E78.5 Hyperlipidemia, unspecified; M19.90 Unspecified osteoarthritis, unspecified site; Z68.32 Body mass index [BMI] 32.0-32.9, adult; Z79.82 Long term (current) use of aspirin; Z79.899 Other long term (current) drug therapy
CPT/HCPCS: 36415; 71046; 80048; 82803; 85027; 93460; 99152; 99153; C1760; J7040; C1751; C1769; C1894; Q9967

== ENCOUNTER → 2017-12-06 09:08 | Outpatient (CLI) | payer MEDICARE, SELFPAY ==
--- NOTE | 2017-12-06 09:19 | PCM.CR.HP2 ---
<AlistairKalpesh - Last Filed: 12/06/17 09:19> CR - History & Physical - General Arrival date:: 12/06/17 Arrival time:: 09:22 Date of Referral:: 12/06/17 Date of CR Evaluation:: 12/06/17 Referring Physician: Dr. Madeline Karimi Primary Diagnosis: CABG, MV repair 10/25/17 - History of Present Cardiac Event Onset Date: Enter Onset Date of cardiac illnesses in Comment field below Current stable Angina Pectoris:: No Acute Myocardial Infarction within 12 months:: No Coronary Artery Bypass Graft:: Yes - 10/25/17 Heart valve replacement or repair:: Yes - MV repair 10/25/17 PTCA or coronary stenting:: No Heart or Heart-Lung Transplant:: No Heart Failure EF <35%:: No Type of Symptoms:: left shoulder pain, fatigue. Interventions with present event:: CABG, MV repair Were there any complications?: fluid around heart now. - Medications Home Medications: Ambulatory Orders Medication Instructions Recorded Acetaminophen [Tylenol] 1,300 mg PO BID 10/11/13 Aspirin [Aspirin, Baby] 162 mg PO DAILY@0800 10/11/13 Multivit-Min/FA/Lycopene/Lut 1 ea PO QHS 10/11/13 [Centrum Silver Tablet] Ranitidine [Zantac] 150 mg PO DAILY 07/22/15 Zonisamide [Zonegran] 25 mg PO QHS 04/29/17 Atorvastatin Calcium [Lipitor] 40 mg PO QHS #30 tab 05/01/17 Lactobacillus acidophilus 1.5 mg 2,000 mmu cells PO BID 11/29/17 (250 million cell) capsule metoprolol tartrate 50 mg tablet 50 mg PO BID 11/29/17 amoxicillin 500 mg tablet 2,000 mg PO ONCE PRN tab 11/30/17 lisinopril 10 mg tablet 10 mg PO BID tab 11/30/17 omega-3 fatty acids 1,000 mg 2,000 mg PO BID cap 11/30/17 capsule - Allergies Allergies/Adverse Reactions: Allergies fenofibrate Allergy (Verified 11/30/17 10:11) Unknown naproxen sodium [From Aleve] Adverse Reaction (Verified 11/30/17 10:11) Other - Sleep Disorder Evaluation Hx of Sleep Apnea: No Do you snore loudly (louder than talking or can be heard through closed doors)?: Yes Do you often feel tired/ fatigued/ sleepy during daytime?: Yes Has anyone observed you stop breathing during sleep?: No History of Hypertension (for STOP score): Yes STOP Results: Positive Advanced Directives - Advanced Directives Power of Steward/Stewardess Tourist Class: Yes Living Will: Yes Advance Directives Information Provided: Yes Advance Directives on File: No DNR Order?:: No - MOLST See MOLST form: No Past Medical History - Past Medical Illness Medical History: Past Medical History (Last Reviewed 11/30/17 @ 10:47 by Mark Karimi MD) Non-rheumatic mitral regurgitation (Chronic) I34.0 Hyperlipidemia (Chronic) E78.5 Essential (primary) hypertension (Chronic) I10 Atherosclerotic heart disease of [place] coronary artery without angina pectoris (Chronic) I25.10 Obesity (Chronic) E66.9 Abdominal aortic aneurysm (Chronic) I71.4 4 cm Abnormal LFTs R94.5 Arthritis M19.90 Gallstone pancreatitis K85.10 Hepatic steatosis K76.0 Sliding hiatal hernia K44.9 TIA (transient ischemic attack) G45.9 C. difficile diarrhea A04.72 Gall stones K80.20 Gallbladder polyp (Resolved) K82.4 - Past Surgical History Surgical History: Past Surgical History (Last Reviewed 11/30/17 @ 10:42 by Mark Karimi MD) H/O coronary artery bypass surgery (Resolved) Onset Date: 10/25/17 Z95.1 MVR w/ 32-mm annuloplasty band and CABG x 1 [facility]-LAD 10/25/17 History of mitral valve repair (Resolved) Onset Date: 10/25/17 Z98.890 MVR w/ 32-mm annuloplasty band and CABG x 1 [facility]-L[facility] 10/25/17 H/O repair of rotator cuff Z98.890 H/O shoulder surgery Z98.890 History of hernia repair Z98.890, Z87.19 History of left knee surgery Z98.890 Hx laparoscopic cholecystectomy Z90.49 and umbilical hernia repair 06/06 Surgical History: - - 1. cardiac cath in 2007 - normal 2. colon polypectomy - 08/2011 - benign 3. hemorrhoidectomy 4. umbilical hernia repair 5. R rotator cuff repair - 08/2013 6. 2 surgeries on the R knee - arthroscopic - Family History Summary Family History: Family History (Last Reviewed 11/30/17 @ 10:42 by Mark Karimi MD) Mother Diabetes Father Heart disease Social History - Smoking History Smoking Status: Never smoker Hx Tobacco Use: No Hx Smoking Exposure: No - Alcohol Use Alcohol Usage: No - Substance Abuse Hx Substance Use: No - Occupation Occupation (List type of work in comments):: Employed - Hobbies, Recreation, Social Activities Hobbies: Other - motorcycle and travel Recreational Activities: I am able to engage in all my recreational activities Social Environment - Status Marital Status: - Current Living Arrangements Living Environment:: Family - Children How many children do you have?: 3 Do any of your children live nearby?: Yes - Safety Do you feel safe in your surroundings?: Yes - Assistance Do you need any assistance at home?: none Review of Systems - Review of Systems Hints: Right click = Denies ([place]ash). Left click = Reports ([place]) Review of Present Symptoms: Reports: Operative Discomfort - incisional sight still very tender, Appetite - Normal, Sleep - Normal. Denies: Shortness of Breath at Rest, Shortness of Breath with Exertion, Dizziness/Lightheadedness, Fatigue, Appetite - Special Diet - Pain Is Patient Pain Free?: Yes Pain Location: none Pain Level: 0/10 Risk Factor Assessment - Chief Complaint Chief Complaint: 67 yr old male patient of Dr. Karimi presents to cardiac rehab today following his recent surgery on 10/25/2017. - Vital Signs Temperature: 98.7 F Respiratory Rate: 16 Pulse Ox: 96 Blood Pressure: 110/70 Nailbeds:: pink - Pulse Pulse Rate: 74 Pulse Rhythm: Regular - Hypertension How long have you been treated?: 34 years started meds. On medication(s)?: yes Blood Pressure Sitting - Left Arm: 110/70 - Obesity Height: 5 ft 10 in Weight:: 212 lb 6.08 oz Weight in Pounds: 212.4 lbs Weight Source: Standing Scale Body Mass Index (BMI): 30.4 Nutritional Referral for Obesity: No - Physical Inactivity Physical Inactivity: Recreational activity - walking daily laps 20-30 minute - Risk Stratification Risk Guidelines: Lowest Risk: Risk Factor for Smoking, Risk Factor for Dyslipidemia, Risk Factor for Diabetes, Risk Factor for Hypertension, Risk Factor for Sedentary Lifestyle, Risk Factor for Depression, Highest Risk: Risk Factor for Obesity - For Smoking Smoking Risk Guidelines: Smoking Low Risk: None or quit greater than 6 months ago. Smoking Moderate Risk: Smoker or quit 6 months or less ago. Smoking High Risk: Smoker - For Dyslipidemia Dyslipidemia Risk Guidelines: Low Risk: Moderate Risk: High Risk: 15-25% fat 25.1-29% fat >/= 30% fat. <7% sat fat 7-9% sat fat >9% sat fat. <150 mg chol 150-299 mg chol >/= 300 mg chol. LDL <100 LDL 100-129 LDL >/= 130. Chol/HDL ratio <5.0 Chol/HDL ratio 5.0-6.0 Chol/HDL ratio >6.0. Triglycerides <100 Triglycerides 100-149 Triglycerides >/= 150 - For Diabetes Mellitus Diabetes Risk Guidelines: Diabetes Low Risk: HgA1c <6.5% and/or FBG <120. Diabetes Moderate Risk: HgA1c 6.6-7.9% and/or FBG 120-180. Diabetes High Risk: HgA1c >/= 8% and/or FBG >180 - For Obesity/Overweight Obesity/Overweight Risk Guidelines: Obesity Low Risk: BMI <25.0. Obesity Moderate Risk: BMI 25-29.9. Obesity High Risk: BMI >/= 30.0 - For Hypertension Hypertension Risk Guidelines: Hypertension Low Risk: Systolic <120 and Diastolic <80. Hypertension Moderate Risk: Systolic 120-139 and Diastolic 80-89. Hypertension High Risk: Systolic >/= 140 and Diastolic >/= 90 - For Sedentary Lifestyle Sedentary Lifestyle Risk Guidelines: Sedentary Lifestyle Low Risk: >/= 1,500 kcal/week. Sedentary Lifestyle Moderate Risk: 700-1,499 kcal/week. Sedentary Lifestyle High Risk: < 700 kcal/week - For Depression Depression Risk Guidelines: Depression Low Risk: Not clinically depressed. Depression Moderate Risk: Mildly depressed. Depression High Risk: Clinically depressed - Family History Family History: Family History (Last Reviewed 11/30/17 @ 10:42 by Mark Karimi MD) Mother Diabetes Father Heart disease Motivation - Motivation to Participate On a scale of 1 to 10, how prepared are you to commit to attending program?: 10 <Omari Cardenas - Last Filed: 12/06/17 10:36> Past Medical History - Past Medical Illness Medical History: Past Medical History (Last Reviewed 11/30/17 @ 10:47 by Mark Karimi MD) Non-rheumatic mitral regurgitation (Chronic) I34.0 Hyperlipidemia (Chronic) E78.5 Essential (primary) hypertension (Chronic) I10 Atherosclerotic heart disease of [place] coronary artery without angina pectoris (Chronic) I25.10 Obesity (Chronic) E66.9 Abdominal aortic aneurysm (Chronic) I71.4 4 cm Abnormal LFTs R94.5 Arthritis M19.90 Gallstone pancreatitis K85.10 Hepatic steatosis K76.0 Sliding hiatal hernia K44.9 TIA (transient ischemic attack) G45.9 C. difficile diarrhea A04.72 Gall stones K80.20 Gallbladder polyp (Resolved) K82.4 - Past Surgical History Surgical History: Past Surgical History (Last Reviewed 11/30/17 @ 10:42 by Mark Karimi MD) H/O coronary artery bypass surgery (Resolved) Onset Date: 10/25/17 Z95.1 MVR w/ 32-mm annuloplasty band and CABG x 1 [facility]-LAD 10/25/17 History of mitral valve repair (Resolved) Onset Date: 10/25/17 Z98.890 MVR w/ 32-mm annuloplasty band and CABG x 1 [facility]-LAD 10/25/17 H/O repair of rotator cuff Z98.890 H/O shoulder surgery Z98.890 History of hernia repair Z98.890, Z87.19 History of left knee surgery Z98.890 Hx laparoscopic cholecystectomy Z90.49 and umbilical hernia repair 06/06 - Family History Summary Family History: Family History (Last Reviewed 11/30/17 @ 10:42 by Mark Karimi MD) Mother Diabetes Father Heart disease Risk Factor Assessment - For Smoking Smoking Risk Guidelines: Smoking Low Risk: None or quit greater than 6 months ago. Smoking Moderate Risk: Smoker or quit 6 months or less ago. Smoking High Risk: Smoker - For Dyslipidemia Dyslipidemia Risk Guidelines: Low Risk: Moderate Risk: High Risk: 15-25% fat 25.1-29% fat >/= 30% fat. <7% sat fat 7-9% sat fat >9% sat fat. <150 mg chol 150-299 mg chol >/= 300 mg chol. LDL <100 LDL 100-129 LDL >/= 130. Chol/HDL ratio <5.0 Chol/HDL ratio 5.0-6.0 Chol/HDL ratio >6.0. Triglycerides <100 Triglycerides 100-149 Triglycerides >/= 150 - For Diabetes Mellitus Diabetes Risk Guidelines: Diabetes Low Risk: HgA1c <6.5% and/or FBG <120. Diabetes Moderate Risk: HgA1c 6.6-7.9% and/or FBG 120-180. Diabetes High Risk: HgA1c >/= 8% and/or FBG >180 - For Obesity/Overweight Obesity/Overweight Risk Guidelines: Obesity Low Risk: BMI <25.0. Obesity Moderate Risk: BMI 25-29.9. Obesity High Risk: BMI >/= 30.0 - For Hypertension Hypertension Risk Guidelines: Hypertension Low Risk: Systolic <120 and Diastolic <80. Hypertension Moderate Risk: Systolic 120-139 and Diastolic 80-89. Hypertension High Risk: Systolic >/= 140 and Diastolic >/= 90 - For Sedentary Lifestyle Sedentary Lifestyle Risk Guidelines: Sedentary Lifestyle Low Risk: >/= 1,500 kcal/week. Sedentary Lifestyle Moderate Risk: 700-1,499 kcal/week. Sedentary Lifestyle High Risk: < 700 kcal/week - For Depression Depression Risk Guidelines: Depression Low Risk: Not clinically depressed. Depression Moderate Risk: Mildly depressed. Depression High Risk: Clinically depressed - Family History Family History: Family History (Last Reviewed 11/30/17 @ 10:42 by Mark Karimi MD) Mother Diabetes Father Heart disease
--- NOTE | 2017-12-06 09:24 | CR.ITP_ITS ---
General Information - General Information Admitting Diagnosis: CABG, MV repair - Education/Goals Barriers to Learning: None, Vision Impairment - glasses Individual Counseling: Initial Assessment: Abnormal Cholesterol Levels, High Blood Pressure, Overweight/Obesity Cardiac Rehabilitation Goals: 1. Maintain the individual as the primary focus of care. 2. To improve the patient's quality of life. 3. Identification of cardiac risk factors and provide cardiac risk factor management. 4. Enhance the psychosocial status of the patient. 5. Reconditioning enough to allow the patient to resume customary activities. 6. Control symptoms of cardiac disease Scale for measuring improvement of personal goals: Enter appropriate number in Comments. 2 = Unchanged. 3 = Slightly Better. 4 = Moderate Improvement. 5 = Met my Goal Personal Goals: Initial Assessment: Improve energy level, Participate in home exercise program, Get back to work, or to resume activities faster, Improve k nowledge of cardiac disease, Improve muscle strength and endurance, Improve diet and eating habits (eat healthier), Control risk factors (learn risk factor modification) Exercise - Initial Assessment - Visit Date of Eval: 12/06/17 - established ITP starting 12/10/2017 Session #:: 0 - Stages of Change Stages of Change:: Action - Exercise Prescription Mode:: Treadmill, Rower, Airdyne, NuStep Angina with exercise?: No Target Heart Rate:: 107-114 - Hypertension Do any of the following apply?: Yes, Medication Resting Blood Pressure:: 110/70 - Intervention Home Exercise/Activity Goal:: Moderate Exercise 30 min/day x 5 days/wk - Education Goals:: Warm-up, RPE ARABELLA Scale, S/S, Safe Exercise, Self-Monitoring - Exercise Program Goals Exercise Program Goals: Aerobic Activity >30 min Nutrition - Initial Assessment - Program Goals Nutrition Program Goals: LDL <70. Total Cholesterol <200. HDL >45. Triglycerides <150. HgbA1C <7%. BMI <25 - Visit Date of Assessment:: 12/06/17 - Stages of Change Stages of Change:: Action - Diabetes Diabetes:: No Do you monitor your blood sugar at home?: No - Weight Management Height: 5 ft 10 in Weight:: 212 lb Goal % Body Fat:: 30 - Intervention Referral to dietitian:: No Referral to Diabetic Clinic:: No Will attend diet classes:: No - Education Gave educational materials for:: Healthy eating Tobacco - Initial Assessment - Program Goals Tobacco Program Goals: Complete smoking cessation. Attend education classes. Improve Knowledge Test score - Stage of Change Stages of Change:: Action - Learning Barriers Learning Barriers: Vision, Ready to Learn - Family Support Do you have family support?: Yes - Tobacco Use Tobacco Use: Non-smoker - Intervention Smoking Cessation Referral:: No Patient Health Questionnaire Initial Assessment 1. Little interest or pleasure in doing things: Not at all 2. Feeling down, depressed, or hopeless: Several days 3. Trouble falling or staying asleep, or sleeping too much: Several days 4. Feeling tired or having little energy: Several days 5. Poor appetite or overeating: Several days 6. Feeling bad about yourself -- or that you are a failure or have let yourself or your family down: Not at all 7. Trouble concentrating on things, such as reading the newspaper or watching television: Several days 8. Moving or speaking so slowly that other people could have noticed. Or the opposite - being so fidgety or restless that you have been moving around a lot more than usual: Several days 9. Thoughts that you would be better off , or of hurting yourself in some way: Not at all How difficult have these problems made it for you to do your work, take care of things at home, or get along with other people?: Not difficult at all Total Score: 6 JOVANNA-Q SV Test - Statements CAD is a disease of the arteries in the heart: False Examples of risk factors for heart disease: True Angina is chest pain or discomfort: True The benefits of resistance training include: True Eating more meat and dairy products: False Anti-platelet medications such as aspirin are important: True The only effective way to manage stress: False An exercise warm-up slowly increases heart rate: True Prepared, processed foods usually have high sodium: True Depression is common after a heart attack: True The statin medications lower cholesterol: True To control blood pressure, lower the amount of sodium: True If someone gets chest discomfort during walking: False Transfats are partially hydrogenated vegetable oils: True Sleep apnea that is not treated increases the risk: False To control cholesterol, one should become a vegetarian: False Someone knows if he/she is exercising at the right level: False Diabetes cannot be prevented with exercise & health eating: False Stress is a large risk for heart attack: True A diet that can help lower blood pressure is rich in: True - Total Score Total Correct Responses: 19 Self-Efficacy Initial Assessment We would like to know how confident you are in doing certain activities. Please select your confidence level for:: Select your confidence level for the following using the scale 1-10 where 1 is not at all confident and 10 is totally confident. Your score is the average of all 6 responses. Fatigue: How confident are you that you can keep the fatigue caused by your disease from interfering with the things you want to do? Select Number: 10 Physical Discomfort or Pain: How confident are you that you can keep the physical discomfort or pain of your disease from interfering with the things you want to do? Select Number: 10 Emotional Distress: How confident are you that you can keep the emotional distress caused by your disease from interfering with the things you want to do? Select Number: 10 Other Symptoms or Health Problems: How confident are you that you can keep other symptoms or health problems from interfering with the things you want to do? Select Number: 10 Different Tasks and Activities: How confident are you that you can do the different tasks and activities needed to manage your health condition so as to reduce your need to see a doctor? Select Number: 10 Medication: How confident are you that you can do things other than just taking medication to reduce how much your illness affects your everyday life? Select Number: 10 Total Score:: 10 Nutrition Survey - Nutrition Survey Instructions Scoring Instructions: Scoring is as follows: Yes = 1 points. No = 0 point. Patient score that is >/=12 is considered to be at potential nutritional risk and could benefit from a referral to a registered dietitian. - Nutrition Survey Initial Have you lost >10 lbs over the past 2 months without trying?: Yes Are you following a special diet at home for diabetes, low fat, or low salt?: Yes Are you interested in meeting with a dietitian for help understanding your diet?: No Do you eat less than 3 meals a day?: Yes Do you eat fatty meats (garland, sausage, ribs, etc), fried foods, desserts, large amounts of salad dressings, margarine, butter, or cheese most days?: No Do you have food allergies? [Enter types in comment field]: No Do you eat in restaurants more than 3 times a week?: No Do you season food with salt, seasoning salt, or garlic salt?: No Do you used canned, boxed, frozen meals, or soups, seasoning packets?: No Total Score:: 3
[2017-12-06 10:01] VITALS: BP 110/70; PULSE 74; RESP 16; TEMP 37.1; O2SAT 96; BMI 30.4
[2017-12-06 10:18] VITALS: BP 110/70
== END ==
PROVIDERS: Family Provider Family Medicine; PCP Family Medicine; Referring Provider Internal Medicine Cardiovascular Disease; Visit Provider Internal Medicine Cardiovascular Disease
DX: Z95.1 Presence of aortocoronary bypass graft (principal)

== ENCOUNTER → 2017-12-06 09:14 | Outpatient (CLI) | payer MEDICARE, SELFPAY ==
--- NOTE | 2017-12-06 10:28 | ECHOD_ITS ---
Reason For Study: VALVE REPLACEMENT Procedure This was a 2D Doppler, Color Flow transthoracic echocardiogram. Exam performed in department. Left Ventricle Normal LV size. Mild concentric left ventricular hypertrophy. Left ventricular systolic function is normal. The estimated ejection fraction is 60 %. No regional wall motion abnormalities noted. Right Ventricle Normal RV size. Normal systolic function. Atria Normal left atrium. Normal right atrium. Mitral Valve Chordal systolic anterior motion of the mitral valve. Status post mitral valve repair. Tricuspid Valve Normal tricuspid valve. Mild tricuspid valve insufficiency. Pulmonary artery systolic pressure is 29 mmHg. Aortic Valve Trisinus/trileaflet aortic valve. Pulmonic Valve Normal pulmonic valve. Great Vessels Normal aortic root. The pulmonary artery is normal size. Normal inferior vena cava. Pericardium/Pleural No pericardial effusion. MMode/2D Measurements & Calculations LVIDd: 3.9 cm IVSd: 1.2 cm LVOT diam: 2.2 cm LVIDs: 2.7 cm LVPWd: 1.2 cm LVOT area: 3.9 cm2 FS: 30.4 % Ao root diam: 3.7 cm LAV(MOD-bp): 64.9 ml LA A4 area: 19.8 cm2 LA dimension: 4.1 cm LAV(MOD-bp) Indexed: 30.3 ml/m2 LAV(MOD-sp2): 73.6 ml LAV(MOD-sp4): 57.3 ml RA A4 area: 11.7 cm2 Doppler Measurements & Calculations MV V2 max: 158.1 cm/sec Ao V2 max: 122.6 cm/sec LV V1 max: 107.6 cm/sec MV max P.2 mmHg Ao max P.0 mmHg LV V1 max P.6 mmHg MV V2 mean: 105.5 cm/sec Ao V2 mean: 85.7 cm/sec LV V1 mean P.7 mmHg MV mean P.0 mmHg Ao mean P.3 mmHg LV V1 mean: 79.2 cm/sec MV V2 VTI: 40.1 cm Ao V2 VTI: 24.3 cm LV V1 VTI: 21.5 cm MVA(VTI): 2.1 cm2 SALOMON(I,D): 3.4 cm2 SALOMON(V,D): 3.4 cm2 SV(LVOT): 83.5 ml PA V2 max: 102.2 cm/sec PI end-d helen: 95.6 cm/sec TR max helen: 248.5 cm/sec TR max P.9 mmHg Interpretation Summary Normal LV size. Left ventricular systolic function is normal. The estimated ejection fraction is 60 %. Status post mitral valve repair. Mild concentric left ventricular hypertrophy. Compared to prior study, there is no significant change. Ordering Physician: Mark Karimi Referring Physician: GERARD MAN Performed By: Kareen Alcantara RDCS, RVT
== END ==
PROVIDERS: Family Provider Family Medicine; PCP Family Medicine; Referring Provider Internal Medicine Cardiovascular Disease; Visit Provider Internal Medicine Cardiovascular Disease
DX: Z98.890 Other specified postprocedural states (principal)
CPT/HCPCS: 93306

== ENCOUNTER 2017-12-19 08:00 | Outpatient (RCR) | payer MEDICARE, SELFPAY | END 2017-12-19 23:59 | LOC: CR 08:00 | PROVIDERS: Family Provider Family Medicine; PCP Family Medicine; Referring Provider Internal Medicine Cardiovascular Disease; Visit Provider Internal Medicine Cardiovascular Disease | DX: Z95.1 Presence of aortocoronary bypass graft (principal); I25.10 Atherosclerotic heart disease of native coronary artery without angina pectoris; I34.0 Nonrheumatic mitral (valve) insufficiency; E78.5 Hyperlipidemia, unspecified; Z98.890 Other specified postprocedural states | CPT/HCPCS: 93798 ==

== ENCOUNTER 2018-01-18 06:30 | Outpatient (RCR) | payer MEDICARE, SELFPAY ==
--- NOTE | 2018-01-08 10:09 | PCM.CR.ITP ---
Exercise - 30-day Assessment - Visit Date of Eval: 01/08/18 Session #:: 13 - Stages of Change Stages of Change:: Action - Exercise Prescription Mode:: Treadmill, Rower, Airdyne, NuStep Frequency (x/week): 3 Duration:: 35 METs - Progression: 0.5-1 MET as tolerated: 5 Target Heart Rate:: 114-122 with max HR 109 - Hypertension Resting Blood Pressure:: 100/58 Peak Exercise Blood Pressure:: 160/86 Medication Changes:: No - Intervention Home Exercise/Activity Goal:: Moderate Exercise 30 min/day x 5 days/wk - Education Goals:: Warm-up, RPE ARABELLA Scale, S/S, Safe Exercise, Self-Monitoring - Exercise Program Goals Exercise Program Goals: Aerobic Activity >30 min Nutrition - Initial Assessment - Program Goals Nutrition Program Goals: LDL <70. Total Cholesterol <200. HDL >45. Triglycerides <150. HgbA1C <7%. BMI <25 - Diabetes Do you monitor your blood sugar at home?: No Nutrition - 30-Day Assessment - Program Goals Nutrition Program Goals: LDL <70. Total Cholesterol <200. HDL >45. Triglycerides <150. HgbA1C <7%. BMI <25 - Visit Date of Eval: 01/08/18 - Stages of Change Stages of Change:: Action - Lipids Has the patient seen the dietitian?: No - Diabetes Diabetes:: No - Weight Management Weight:: 214 lb - Intervention Referral to dietitian:: No Referral to Diabetic Clinic:: No Will attend diet classes:: Yes - Education Attended class for:: Healthy eating Tobacco - Initial Assessment - Program Goals Tobacco Program Goals: Complete smoking cessation. Attend education classes. Improve Knowledge Test score - Learning Barriers Learning Barriers: Vision, Ready to Learn Tobacco - 30-Day Assessment - Program Goals Tobacco Program Goals: Complete smoking cessation. Attend education classes. Improve Knowledge Test score - Stage of Change Stages of Change:: Action - Learning Barriers Learning Barriers: Participates in education - Family Support Do you have family support?: Yes - Tobacco Use Tobacco Use: Non-smoker Do you use smokeless tobacco?: No - Intervention Smoking Cessation Referral:: No Education Schedule Given:: Yes - Education Attended class for:: Coronary artery disease, Risk factors, Sexuality, Medical compliance, Cardiac A&P, Angina signs & symptoms Psychosocial - 30-Day Assess - Target Goals Target Goals: Assess presence or absence of depression. Using a valid screening tool, maximizes coping skills. Positive support system - Stages of Change Stages of Change:: Action - Psychosocial Test Tool Used:: HANDS Depression Questionnaire - Intervention PS - Interventions: Yes Attend Stress Management Classes, Yes Uses Stress Management Skills, No Referral to Mental Health, No Referral to [facility] Case Management, No Referral to Physician - Education Attended classes for:: Coping techniques, Signs & symptoms of depression, Stress management, Relaxation techniques - Patient/Program Goal Preventative Medication(s):: Aspirin, Clopidogrel, Beta dustin, Statin/lipid - Assistive Devices Assistive Devices:: None Fall Risk Assessed:: Yes Patient Health Questionnaire 30-Day Re-eval Assessment 1. Little interest or pleasure in doing things: Not at all 2. Feeling down, depressed, or hopeless: Not at all 3. Trouble falling or staying asleep, or sleeping too much: Not at all 4. Feeling tired or having little energy: Not at all 5. Poor appetite or overeating: Not at all 6. Feeling bad about yourself -- or that you are a failure or have let yourself or your family down: Not at all 7. Trouble concentrating on things, such as reading the newspaper or watching television: Not at all 8. Moving or speaking so slowly that other people could have noticed. Or the opposite - being so fidgety or restless that you have been moving around a lot more than usual: Not at all 9. Thoughts that you would be better off , or of hurting yourself in some way: Not at all How difficult have these problems made it for you to do your work, take care of things at home, or get along with other people?: Not difficult at all Total Score: 0 Self-Efficacy 30-Day Re-eval Assessment We would like to know how confident you are in doing certain activities. Please select your confidence level for:: Select your confidence level for the following using the scale 1-10 where 1 is not at all confident and 10 is totally confident. Your score is the average of all 6 responses. Fatigue: How confident are you that you can keep the fatigue caused by your disease from interfering with the things you want to do? Select Number: 10 Physical Discomfort or Pain: How confident are you that you can keep the physical discomfort or pain of your disease from interfering with the things you want to do? Select Number: 10 Emotional Distress: How confident are you that you can keep the emotional distress caused by your disease from interfering with the things you want to do? Select Number: 10 Other Symptoms or Health Problems: How confident are you that you can keep other symptoms or health problems from interfering with the things you want to do? Select Number: 10 Different Tasks and Activities: How confident are you that you can do the different tasks and activities needed to manage your health condition so as to reduce your need to see a doctor? Select Number: 10 Medication: How confident are you that you can do things other than just taking medication to reduce how much your illness affects your everyday life? Select Number: 10 Total Score:: 10
[2018-01-08 10:11] VITALS: BP 100/58; BP 160/86
== END 2018-01-18 23:59 ==
LOC: CR 06:30
PROVIDERS: Family Provider Family Medicine; PCP Family Medicine; Referring Provider Internal Medicine Cardiovascular Disease; Visit Provider Internal Medicine Cardiovascular Disease
DX: Z95.1 Presence of aortocoronary bypass graft (principal); I25.10 Atherosclerotic heart disease of native coronary artery without angina pectoris; I34.0 Nonrheumatic mitral (valve) insufficiency; E78.5 Hyperlipidemia, unspecified; I10 Essential (primary) hypertension; Z98.890 Other specified postprocedural states
CPT/HCPCS: 93798

== ENCOUNTER 2018-02-18 06:30 | Outpatient (RCR) | payer MEDICARE, SELFPAY ==
[2017-12-06 10:01] VITALS: BMI 30.4
[2018-01-19 01:43] VITALS: BP 100/58; BP 160/86
--- NOTE | 2018-02-04 09:42 | PCM.CR.ITP ---
Exercise - 60-Day Assessment - Visit Date of Eval: 02/04/18 Session #:: 24 - Stages of Change Stages of Change:: Action - Exercise Prescription Mode:: Treadmill, Rower, Airdyne, NuStep Frequency (x/week): 3 - MWF Duration:: 30-45 min METs: 6.5 Target Heart Rate:: 114-122 - Hypertension Resting Blood Pressure:: 126/70 Peak Exercise Blood Pressure:: 160/82 Medication Changes:: No - Intervention Home Exercise/Activity Goal:: Moderate Exercise 30 min/day x 5 days/wk - Education Goals:: Warm-up, RPE ARABELLA Scale, S/S, Safe Exercise, Self-Monitoring - Exercise Program Goals Exercise Program Goals: Aerobic Activity >30 min Nutrition - Initial Assessment - Program Goals Nutrition Program Goals: LDL <70. Total Cholesterol <200. HDL >45. Triglycerides <150. HgbA1C <7%. BMI <25 - Diabetes Do you monitor your blood sugar at home?: No Nutrition - 60-Day Assessment - Program Goals Nutrition Program Goals: LDL <70. Total Cholesterol <200. HDL >45. Triglycerides <150. HgbA1C <7%. BMI <25 - Visit Date of Eval: 02/04/18 - Stages of Change Stages of Change:: Action - Lipids Has the patient seen the dietitian?: No - Diabetes Diabetes:: No - Weight Management Weight:: 218 lb 8 oz - gained 4.5 pounds this 30 days - Intervention Referral to dietitian:: No Referral to Diabetic Clinic:: No Will attend diet classes:: Yes - Education Attended class for:: Healthy eating Tobacco - Initial Assessment - Program Goals Tobacco Program Goals: Complete smoking cessation. Attend education classes. Improve Knowledge Test score - Learning Barriers Learning Barriers: Vision, Ready to Learn Tobacco - 60-Day Assessment - Program Goals Tobacco Program Goals: Complete smoking cessation. Attend education classes. Improve Knowledge Test score - Stage of Change Stages of Change:: Action - Learning Barriers Learning Barriers: Participates in education, Change in behavior - Tobacco Use Tobacco Use: Non-smoker Do you use smokeless tobacco?: No - Intervention Smoking Cessation Referral:: No Education Schedule Given:: Yes - Education Attended class for:: Coronary artery disease, Risk factors, Sexuality, Medical compliance, Cardiac A&P, Angina signs & symptoms Psychosocial - Initial Assess - Target Goals Target Goals: Assess presence or absence of depression. Using a valid screening tool, maximizes coping skills. Positive support system - Psychosocial Test Tool Used:: HANDS Depression Questionnaire - Assistive Devices Fall Risk Assessed:: Yes Psychosocial - 60-Day Assess - Target Goals Target Goals: Assess presence or absence of depression. Using a valid screening tool, maximizes coping skills. Positive support system - Stages of Change Stages of Change:: Action - Psychosocial Test Tool Used:: HANDS Depression Questionnaire - Intervention PS - Interventions: Yes Referral to Physician, Yes Attend Stress Management Classes, Yes Uses Stress Management Skills, No Referral to Mental Health, No Referral to [facility] Case Management - Education Attended classes for:: Coping techniques, Signs & symptoms of depression, Stress management, Relaxation techniques - Patient/Program Goal Preventative Medication(s):: Aspirin, Clopidogrel, Beta dustin, Statin/lipid - Assistive Devices Assistive Devices:: None Fall Risk Assessed:: Yes Patient Health Questionnaire 60-Day Re-eval Assessment 1. Little interest or pleasure in doing things: Not at all 2. Feeling down, depressed, or hopeless: Not at all 3. Trouble falling or staying asleep, or sleeping too much: Not at all 4. Feeling tired or having little energy: Not at all 5. Poor appetite or overeating: Not at all 6. Feeling bad about yourself -- or that you are a failure or have let yourself or your family down: Not at all 7. Trouble concentrating on things, such as reading the newspaper or watching television: Not at all 8. Moving or speaking so slowly that other people could have noticed. Or the opposite - being so fidgety or restless that you have been moving around a lot more than usual: Not at all 9. Thoughts that you would be better off , or of hurting yourself in some way: Not at all How difficult have these problems made it for you to do your work, take care of things at home, or get along with other people?: Not difficult at all Total Score: 0 Self-Efficacy 60-Day Re-eval Assessment We would like to know how confident you are in doing certain activities. Please select your confidence level for:: Select your confidence level for the following using the scale 1-10 where 1 is not at all confident and 10 is totally confident. Your score is the average of all 6 responses. Fatigue: How confident are you that you can keep the fatigue caused by your disease from interfering with the things you want to do? Select Number: 10 Physical Discomfort or Pain: How confident are you that you can keep the physical discomfort or pain of your disease from interfering with the things you want to do? Select Number: 10 Emotional Distress: How confident are you that you can keep the emotional distress caused by your disease from interfering with the things you want to do? Select Number: 10 Other Symptoms or Health Problems: How confident are you that you can keep other symptoms or health problems from interfering with the things you want to do? Select Number: 10 Different Tasks and Activities: How confident are you that you can do the different tasks and activities needed to manage your health condition so as to reduce your need to see a doctor? Select Number: 10 Medication: How confident are you that you can do things other than just taking medication to reduce how much your illness affects your everyday life? Select Number: 10 Total Score:: 10
[2018-02-04 09:45] VITALS: BP 126/70; BP 160/82
== END 2018-02-18 23:59 ==
LOC: CR 06:30
PROVIDERS: Family Provider Family Medicine; PCP Family Medicine; Referring Provider Internal Medicine Cardiovascular Disease; Visit Provider Internal Medicine Cardiovascular Disease
DX: I34.0 Nonrheumatic mitral (valve) insufficiency (principal); Z95.1 Presence of aortocoronary bypass graft; Z98.890 Other specified postprocedural states; E78.5 Hyperlipidemia, unspecified; I10 Essential (primary) hypertension; I25.10 Atherosclerotic heart disease of native coronary artery without angina pectoris
CPT/HCPCS: 93798

== ENCOUNTER 2018-03-06 06:30 | Outpatient (RCR) | payer MEDICARE, SELFPAY ==
[2017-12-06 10:01] VITALS: BMI 30.4
[2018-02-19 01:10] VITALS: BP 126/70; BP 160/82
--- NOTE | 2018-03-04 11:38 | PCM.CR.ITP ---
General Information - General Information Admitting Diagnosis: CABG - Education/Goals Cardiac Rehabilitation Goals: 1. Maintain the individual as the primary focus of care. 2. To improve the patient's quality of life. 3. Identification of cardiac risk factors and provide cardiac risk factor management. 4. Enhance the psychosocial status of the patient. 5. Reconditioning enough to allow the patient to resume customary activities. 6. Control symptoms of cardiac disease Scale for measuring improvement of personal goals: Enter appropriate number in Comments. 2 = Unchanged. 3 = Slightly Better. 4 = Moderate Improvement. 5 = Met my Goal Exercise - 90-Day Assessment - Visit Date of Eval: 03/04/18 Session #:: 35 - Stages of Change Stages of Change:: Action - Exercise Prescription Mode:: Treadmill, Airdyne, NuStep Frequency (x/week): 3 Duration:: 35 METs: 7.5 Target Heart Rate:: 122-130 Max HR 131 - Hypertension Resting Blood Pressure:: 114/68 Peak Exercise Blood Pressure:: 128/80 - Intervention Home Exercise/Activity Goal:: Sitting Time <3 hrs/day - Education Goals:: Warm-up, RPE ARABELLA Scale, S/S, Safe Exercise, Self-Monitoring - Exercise Program Goals Exercise Program Goals: Aerobic Activity >30 min, B/P <130/80 Nutrition - Initial Assessment - Program Goals Nutrition Program Goals: LDL <70. Total Cholesterol <200. HDL >45. Triglycerides <150. HgbA1C <7%. BMI <25 - Diabetes Do you monitor your blood sugar at home?: No Nutrition - 90-Day Assessment - Program Goals Nutrition Program Goals: LDL <70. Total Cholesterol <200. HDL >45. Triglycerides <150. HgbA1C <7%. BMI <25 - Visit Date of Eval: 03/04/18 - Stages of Change Stages of Change:: Action - Diabetes Diabetes:: No - Weight Management Weight:: 100.244 kg - Intervention Referral to dietitian:: No Referral to Diabetic Clinic:: No Will attend diet classes:: Yes - Education Attended class for:: Signs & symptoms of hypoglycemia, Signs & symptoms of hyperglycemia, Relate diabetes to coronary artery disease, Healthy eating Tobacco - Initial Assessment - Program Goals Tobacco Program Goals: Complete smoking cessation. Attend education classes. Improve Knowledge Test score - Learning Barriers Learning Barriers: Vision, Ready to Learn Tobacco - 90-Day Assessment - Program Goals Tobacco Program Goals: Complete smoking cessation. Attend education classes. Improve Knowledge Test score - Stage of Change Stages of Change:: Action - Learning Barriers Learning Barriers: Participates in education - Family Support Do you have family support?: Yes - Tobacco Use Tobacco Use: Non-smoker - Intervention Smoking Cessation Referral:: No Individual Education/Counseling:: No Education Schedule Given:: Yes - Education Attended class for:: Tobacco triggers, Coronary artery disease, Risk factors, Sexuality, Medical compliance, Cardiac A&P, Angina signs & symptoms Psychosocial - 90-Day Assess - Target Goals Target Goals: Assess presence or absence of depression. Using a valid screening tool, maximizes coping skills. Positive support system - Stages of Change Stages of Change:: Action - Psychosocial Test Tool Used:: HANDS Depression Questionnaire - Intervention PS - Interventions: Yes Attend Stress Management Classes, Yes Uses Stress Management Skills, No Referral to Mental Health, No Referral to [facility] Case Management, No Referral to Physician - Education Attended classes for:: Coping techniques, Signs & symptoms of depression, Stress management, Relaxation techniques - Assistive Devices Assistive Devices:: None Fall Risk Assessed:: Yes Patient Health Questionnaire 90-Day Re-eval Assessment 1. Little interest or pleasure in doing things: Not at all 2. Feeling down, depressed, or hopeless: Not at all 3. Trouble falling or staying asleep, or sleeping too much: Not at all 4. Feeling tired or having little energy: Not at all 5. Poor appetite or overeating: Not at all 6. Feeling bad about yourself -- or that you are a failure or have let yourself or your family down: Not at all 7. Trouble concentrating on things, such as reading the newspaper or watching television: Not at all 8. Moving or speaking so slowly that other people could have noticed. Or the opposite - being so fidgety or restless that you have been moving around a lot more than usual: Not at all 9. Thoughts that you would be better off , or of hurting yourself in some way: Not at all How difficult have these problems made it for you to do your work, take care of things at home, or get along with other people?: Not difficult at all Total Score: 0 Self-Efficacy 90-Day Re-eval Assessment We would like to know how confident you are in doing certain activities. Please select your confidence level for:: Select your confidence level for the following using the scale 1-10 where 1 is not at all confident and 10 is totally confident. Your score is the average of all 6 responses. Fatigue: How confident are you that you can keep the fatigue caused by your disease from interfering with the things you want to do? Select Number: 10 Physical Discomfort or Pain: How confident are you that you can keep the physical discomfort or pain of your disease from interfering with the things you want to do? Select Number: 10 Emotional Distress: How confident are you that you can keep the emotional distress caused by your disease from interfering with the things you want to do? Select Number: 10 Other Symptoms or Health Problems: How confident are you that you can keep other symptoms or health problems from interfering with the things you want to do? Select Number: 10 Different Tasks and Activities: How confident are you that you can do the different tasks and activities needed to manage your health condition so as to reduce your need to see a doctor? Select Number: 10 Medication: How confident are you that you can do things other than just taking medication to reduce how much your illness affects your everyday life? Select Number: 10 Total Score:: 10
[2018-03-04 11:43] VITALS: BP 114/68; BP 128/80
== END 2018-03-06 07:00 | disposition home or self-care (01) ==
LOC: CR 06:30
PROVIDERS: Family Provider Family Medicine; PCP Family Medicine; Referring Provider Internal Medicine Cardiovascular Disease; Visit Provider Internal Medicine Cardiovascular Disease
DX: Z95.1 Presence of aortocoronary bypass graft (principal); I34.0 Nonrheumatic mitral (valve) insufficiency; Z98.890 Other specified postprocedural states; E78.5 Hyperlipidemia, unspecified; I10 Essential (primary) hypertension; I25.10 Atherosclerotic heart disease of native coronary artery without angina pectoris
CPT/HCPCS: 93798

== ENCOUNTER → 2018-10-25 | Outpatient (CLI) | payer MEDICARE, SELFPAY ==
[2018-10-18 08:46] VITALS: BMI 31.8
[2018-10-25 08:22] LABS: AST(SGOT) 24 U/L (15-37); Alanine Aminotransfer ALT/SGPT 39 U/L (16-61); Alkaline Phosphatase 81 U/L (45-117); Bilirubin, Direct 0.08 mg/dL (0.00-0.30); Cholesterol 144 mg/dL (200); Globulin 3.6 g/dL (2.2-4.2); High Density Lipoprotein 28 mg/dL; Protein, Total 7.6 g/dL (6.4-8.2); Triglycerides 670 mg/dL
== END | disposition home or self-care (01) ==
PROVIDERS: Family Provider Family Medicine; PCP Family Medicine; Referring Provider Internal Medicine Cardiovascular Disease; Visit Provider Internal Medicine Cardiovascular Disease
DX: E78.00 Pure hypercholesterolemia, unspecified (principal)
CPT/HCPCS: 36415; 80061; 80076

== ENCOUNTER → 2019-04-18 | Outpatient (CLI) | payer MEDICARE, SELFPAY ==
[2018-10-18 08:46] VITALS: BMI 31.8
[2019-04-18 08:50] LABS: AST(SGOT) 24 U/L (15-37); Alanine Aminotransfer ALT/SGPT 53 U/L (16-61); Alkaline Phosphatase 57 U/L (45-117); Bilirubin, Direct 0.15 mg/dL (0.00-0.30); Cholesterol 114 mg/dL (200); Globulin 3.6 g/dL (2.2-4.2); High Density Lipoprotein 36 mg/dL; Protein, Total 7.6 g/dL (6.4-8.2); Triglycerides 233 mg/dL; Very Low Density Lipoprotein 47 mg/dL (5-40)
== END | disposition home or self-care (01) ==
LOC: LAB 07:49
PROVIDERS: PCP Family Medicine; Referring Provider Nurse Practitioner Family; Visit Provider Nurse Practitioner Family
DX: E78.1 Pure hyperglyceridemia (principal); E78.5 Hyperlipidemia, unspecified
CPT/HCPCS: 36415; 80061; 80076

== ENCOUNTER 2021-04-28 08:49 | Outpatient (CLI) | payer MEDICARE, SELFPAY ==
--- NOTE | 2021-04-28 09:00 | AAVD_ITS ---
Reason For Study: AAA Aorta Measurements Aorta Doppler Measurements Proximal aorta measures1.64 x 1.72cm. in cross- Peak systolic flow velocities within the proximal sectional axis. aorta measure 93.5 cm/sec. Proximal aorta measures1.72cm. in longitudinal Peak systolic flow velocities within the mid aorta axis. measure 86.2 cm/sec. Mid aorta measures2.06 x 2.35cm. in cross- Peak systolic flow velocities within the distal sectional axis. aorta measure 93.5 cm/sec. Mid aorta measures2.06cm. in longitudinal axis. Distal aorta measures4.18 x 4.62cm. in cross- sectional axis. Distal aorta measures4.03cm. in longitudinal axis. Left Iliac Artery Left iliac artery measures .88 x .95 cm. in the cross-sectional axis. Left iliac artery measures .85 cm. in the longitudinal axis. Peak systolic velocity in the left iliac artery measures 86.2 cm/sec. Right Iliac Artery Right iliac artery measures .83 x .95 cm. in the cross-sectional axis. Right iliac artery measures .91 cm. in the longitudinal axis. Peak systolic velocity in the right iliac artery measures 86.2 cm/sec. Procedure Aorta IVC Iliac vasculature or bypass grafts [id number]. The exam was diagnostic. Exam performed in department. VL/Abd Aortic/IVC Duplex scan Interpretation Summary Distal abdominal aortic aneurysm measuring 4.18 x 4.62 cm in diameter. Normal aortic flow rate identified. Left common iliac 0.88 x 0.95 cm in diameter which is normal Right common iliac 0.83 x 0.95 cm in diameter which is normal July 09, 2009 the aneurysm measured 3 x 2.9 cm Ordering Physician: Mray Barrios Performed By: Tyrese Escobar RVT
== END 2021-04-28 23:59 | disposition home or self-care (01) ==
LOC: CVS 08:50
PROVIDERS: PCP Family Medicine; Visit Provider Nurse Practitioner Gerontology
DX: I71.4 Abdominal aortic aneurysm, without rupture (principal)
CPT/HCPCS: 93978

== ENCOUNTER 2021-11-04 22:10 | Inpatient (IN) | payer MEDICARE, SELFPAY ==
[2021-11-04 22:11] VITALS: BP 165/68; PULSE 38; RESP 18; TEMP 36.3; O2SAT 99; BMI 31.6
--- NOTE | 2021-11-04 22:30 | CT_ITS ---
INDICATION: Abdominal aortic aneurysm EXAMINATION: CTA CHEST, ABDOMEN AND PELVIS WITH CONTRAST - TECHNIQUE: A CTA of the chest, abdomen, and pelvis is obtained with sagittal and coronal reconstructed MIP views. Three-dimensional surface rendered sequence of the thoracic and abdominal aorta was obtained. A radiation dose optimization technique was used for this scan. 100 cc [id number]. Oral contrast: None. COMPARISON: 04/30/2017 FINDINGS: CT CHEST: THORACIC AORTA: No atheromatous disease, no aneurysmal changes or dissection. ABDOMINAL AORTA: Infrarenal abdominal aortic aneurysm is noted measuring 4.7 x 4.9 cm. No evidence of dissection. Mild atherosclerotic disease. Normal great vessel takeoffs LUNGS: The lungs are well-expanded without acute or chronic changes. No effusions or pneumothorax. MEDIASTINUM: The thyroid gland is normal. No mediastinal or hilar adenopathy. HEART: Borderline cardiomegaly. No pericardial effusion. Coronary artery calcifications are seen CT ABDOMEN AND PELVIS: LIVER: The liver enhances homogeneously. No masses identified. GALLBLADDER: Status post cholecystectomy SPLEEN: Normal. PANCREAS: No masses or inflammation. ADRENAL GLANDS: Normal. KIDNEYS AND URETERS: The kidneys both enhance appropriately. There are normal size and shape. No hydronephrosis or nephrolithiasis. Small nonenhancing left renal cyst measuring 2 cm. STOMACH: Normal. SMALL BOWEL: No abnormal distention of the small bowel. MESENTERY: No mesenteric inflammation. No ascites. COLON: No significant diverticulosis, masses or inflammation. The colon otherwise is normal. There is a large fatty ileocecal valve. APPENDIX: The appendix is visualized and normal. IVC: Normal. RETROPERITONEUM: No retroperitoneal lymphadenopathy. PELVIC STRUCTURES: Normal bladder. SOFT TISSUES ABDOMEN: The anterior abdominal wall is normal. SOFT TISSUE CHEST: The extrathoracic soft tissues are normal. BONES: Left hip arthroplasty CT/CTA Chst, Abd, Pel W and/or WO IMPRESSION: Infrarenal abdominal aortic aneurysm as detailed above. No evidence of thoracic aortic dissection. Lungs are clear. No acute findings in the abdomen or pelvis. Electronically Signed: Chaz Linton DO at 0:21 EDT ,
--- NOTE | 2021-11-04 22:30 | EKG12_ITS ---
Test Reason : DYSRHYTHMIA Blood Pressure : / mmHG Vent. Rate : 039 BPM Atrial Rate : 039 BPM P-R Int : 238 ms QRS Dur : 106 ms QT Int : 456 ms P-R-T Axes : 057 005 052 degrees QTc Int : 367 ms Marked sinus bradycardia with 1st degree A-V block with 2:1 AV block Septal infarct , age undetermined Abnormal ECG Confirmed by BARBARA GOFF, EVERTON ([id number]), assistant film editor JAYESH QUEEN ([id number]) on 11/09/2021 11:13:58 AM Referred By: KARY Confirmed By:EVERTON JIMENEZ MD
[2021-11-04] MEDS: Aspirin 325 MG Tablet PO (22:40)
[2021-11-04] MEDS: Atropine Sulfate 1 MG/10 ML Syringe 0.5 MG IV (22:40)
--- NOTE | 2021-11-04 22:53 | EX.ED.DYSGE1 ---
HPI History of Present Illness Chief Complaint: Chest Pain Narrative Narrative: Patient is a 71-year-old male with past medical history of hypertension hyperlipidemia diabetes as well and has known CAD requiring one-vessel bypass and mitral valve replacement. He also has a known aortic abdominal aneurysm which has been monitored. He reports that over the past 3 to 4 days he has had a chest tightness which can radiate up into his neck. He states that it seems to worsen with ambulation. He denies any nausea vomiting diaphoresis associated with this. He does report shortness of breath when he is active. He states that as his symptoms are not resolving he presents for evaluation. [facility] Medical History Abdominal aortic aneurysm Abnormal LFTs Arthritis Atherosclerotic heart disease of [place] coronary artery without angina pectoris C. difficile diarrhea Essential (primary) hypertension Gall stones Gallbladder polyp Gallstone pancreatitis Hepatic steatosis Hyperlipidemia Non-rheumatic mitral regurgitation Obesity Sliding hiatal hernia TIA (transient ischemic attack) Type 2 diabetes mellitus Home Medications tdxiozum-nvq-wuliv acid 0.4 mg-lycopene 300 mcg-lutein 250 mcg tablet 1 ea PO QHS multivitamin 10/11/13 [History Last Taken 04/27/17] Lactobacillus acidophilus 1.5 mg (250 million cell) capsule 2,000 mmu cells PO BID 11/29/17 [History Last Taken Unknown] aspirin 81 mg chewable tablet 81 mg PO DAILY heart health 05/23/19 [History Last Taken Unknown] bee pollen 550 mg capsule 550 mg PO DAILY 05/23/19 [History Last Taken Unknown] prostegenix 1 cap PO DAILY 05/23/19 [History Last Taken Unknown] famotidine 40 mg tablet 40 mg PO DAILY #90 tabs 03/29/20 [Rx Last Taken Unknown] lisinopril 20 mg tablet 20 mg PO BID #180 tabs 10/08/20 [Rx Last Taken Unknown] metformin 500 mg tablet,extended release 24 hr 500 mg PO DAILY 10/08/20 [History Last Taken Unknown] metoprolol tartrate 25 mg tablet 25 mg PO BID #180 tabs 10/08/20 [Rx Last Taken Unknown] hydrochlorothiazide 25 mg tablet 25 mg PO DAILY 04/08/21 [History Last Taken Unknown] valacyclovir 500 mg tablet (Valtrex) 1,000 mg PO BID PRN herpes 04/08/21 [History Last Taken Unknown] atorvastatin 80 mg tablet 80 mg PO QHS #90 tabs 09/29/21 [Rx Last Taken Unknown] amoxicillin 500 mg tablet 2,000 mg PO ONCE PRN Mitral valve repair #8 tabs 10/07/21 [Rx Last Taken Unknown] ibuprofen 600 mg tablet 600 mg PO ONCE 10/07/21 [History Last Taken Unknown] omega 3-ikc-uim-fish oil 900 mg-1,400 mg capsule,delayed release (Fish Oil) 2 cap PO BID 10/07/21 [History Last Taken Unknown] tadalafil 20 mg tablet (Cialis) 20 mg PO DAILY PRN Erectile Dysfunction 10/07/21 [History Last Taken Unknown] Allergy/AdvReac Type Severity Reaction Status Date / Time fenofibrate Allergy Unknown Verified 11/04/21 22:13 naproxen sodium [From Aleve] AdvReac Other Verified 11/04/21 22:13 Family History (Reviewed 10/07/21 @ 08:49 by Mary Barrios SOFTWARE SECURITY ARCHITECT, SOFTWARE SECURITY ARCHITECT-C) Mother Diabetes Father Heart disease Surgical History H/O coronary artery bypass surgery (10/25/17) H/O repair of rotator cuff H/O shoulder surgery History of hernia repair History of left knee surgery History of mitral valve repair (10/25/17) Hx laparoscopic cholecystectomy Status post total replacement of left hip Social History Smoking Status: Never smoker alcohol intake: never substance use type: does not use caffeine: Yes Type: coffee Number of servings: 3 what type of physical activity do you participate in: none seatbelt use: always do you feel safe at home: Yes ROS ROS ED Constitutional Constitutional ED: Denies chills or fever(s) ENT ENT ED: Denies sore throat Cardiovascular Cardiovascular: Reports chest pain; Denies palpitations or racing heartbeat Respiratory/Chest Respiratory/Chest: Reports dyspnea on exertion; Denies cough or dyspnea Gastrointestinal Gastrointestinal: Denies abdominal pain, diarrhea, nausea or vomiting Genitourinary Genitourinary ED: Denies dysuria Musculoskeletal Musculoskeletal: Denies back pain or myalgias Integumentary Denies rash Neurologic Neurologic: Denies headache(s) Hematologic/Lymphatic Hematologic/Lymphatic: Denies easy bleeding or easy bruising EXAM Physical Exam Const Vital Signs: 11/04/21 22:11 11/04/21 22:22 11/04/21 23:16 Temperature 97.4 F L Temperature Source Temporal Pulse Rate 38 L 40 L Respiratory Rate 18 16 Respiratory Effort Normal Non-Labored Blood Pressure 165/68 H 113/68 Blood Pressure Mean 100 83 Pulse Ox 99 99 Oxygen Delivery Method Room Air Room Air 11/05/21 00:05 11/05/21 00:04 Temperature Temperature Source Pulse Rate 43 L 35 L Respiratory Rate 18 12 Respiratory Effort Blood Pressure 113/61 113/61 Blood Pressure Mean 78 78 Pulse Ox 99 99 Oxygen Delivery Method Room Air Room Air Positive well nourished and well developed General Appearance ED: well developed Eyes PERRL and EOMs intact bilaterally Neck supple and no JVD Neck Narrative: Carotid pulses are equal and symmetric Chest Wall palpation of chest normal Resp normal respiratory effort and clear to auscultation bilaterally Cardio regular rhythm Rate: bradycardia and other Other Details: Radial pulses are plus 2 out of 4 bilaterally are equal and symmetric GI normal to inspection, nondistended, normoactive bowel sounds, non-tender and non-distended GI Narrative: No voluntary guarding or rigidity no pulsatile mass Auscultation: normoactive bowel sounds Palpation: soft Extremity normal to inspection Extremity Narrative: No asymmetric edema no pitting edema negative Homans' sign bilaterally Neuro oriented x3, CN's II-XII intact bilaterally and no sensory deficits noted Sensorium / Orientation: alert Motor Exam: strength 5/5 throughout Psych mental status grossly normal Skin no rashes or lesions noted MDM MDM MDM Narrative Medical decision making narrative: Patient arrived to the ER ER slightly hypertensive but does have a past medical history of this. His pulse upon arrival was low at approximately 35. He states that he normally runs approximately 60 bpm. He reports he has been no increase to his medication and he states he has been taking them as directed. The EKG initially appeared to be a sinus bradycardia with first-degree block. He was given atropine and there was only minimal improvement of his heart rate so rhythm strip was obtained. This shows changes most consistent with a second-degree AV block. As patient has a known history of CAD requiring bypass a cardiac work-up was obtained. His initial troponin was normal at 8 and the delta only went up by a value of 2 points to 10 which is not clinically significant and goes against cardiovascular injury. As patient has a known history of abdominal aortic aneurysm and also underwent a hip surgery 3 months ago I elected perform a CTA to rule out PE or dissection as a cause of his symptoms. CTA revealed the chronic/known aneurysm without any further complications. The EKGs and the case were discussed with cardiology on-call. They do feel that patient is having a 2-1 AV block causing his bradycardia. They recommend that patient receive no further beta-dustin medications and also recommend patient be kept in the hospital for cardio pulmonary monitoring and to discuss further treatment options of his AV block. Secondary to his persistent bradycardia as well as recommendation by cardiology medicine was contacted and will accept the patient at this time. He has remained bradycardic but despite this he has a normal mental status with stable blood pressure and oxygen value and therefore there is no need for transcutaneous pacing or placement in the ICU. Lab Data Attestation: I reviewed the patient's lab results. Labs: Laboratory Results - last 24 hr 11/04/21 11/04/21 11/05/21 22:20 22:20 00:26 WBC 8.2 RBC 3.75 L Hgb 12.9 L Hct 36.6 L MCV 97.6 H MCH 34.4 H MCHC 35.2 RDW Std Deviation 44.5 H RDW Coeff of Kvng 12.5 Plt Count 221 MPV 10.0 Immature Gran % (Auto) 0.500 Neut % (Auto) 53.7 Lymph % (Auto) 33.3 [place] % (Auto) 8.7 Eos % (Auto) 3.1 Baso % (Auto) 0.7 Absolute Neuts (auto) 4.4 Absolute Lymphs (auto) 2.73 Nucleated RBC % 0 Sodium 141 Potassium 4.0 Chloride 107 Carbon Dioxide 24.0 Anion Gap 10 BUN 47 H Creatinine 1.69 H Estim Creat Clear Calc 41.40 Est GFR (MDRD) Af Amer 52 L Est GFR (MDRD) Non-Af 43 L BUN/Creatinine Ratio 27.8 H Glucose 150 H Calcium 9.8 Magnesium 2.0 Troponin I High Sens 8 10 TSH 1.46 Radiography Diagnostic Testing: Clinical Impression(s) from Imaging Studies Chest/Abdomen/Pelvis CTA 11/04/21 22:30 IMPRESSION: Infrarenal abdominal aortic aneurysm as detailed above. No evidence of thoracic aortic dissection. Lungs are clear. No acute findings in the abdomen or pelvis. Electronically Signed: Chaz Linton DO at 0:21 EDT , Discharge Plan Dx/Rx/DC Orders Clinical Impression: Mobitz type II atrioventricular block, Abdominal aortic aneurysm, Essential (primary) hypertension, Type 2 diabetes mellitus Disposition Disposition: Acute Care Hospital [facility]
[2021-11-04 22:57] LABS: Absolute Lymphocyte Count 2.73 X10^3/uL (0.83-4.51); Absolute Neutrophil Count 4.4 X10^3/uL (2.0-7.7); Basophil# 0.06 X10^3/uL; Basophil% 0.7 % (0-1); Eosinophil# 0.25 X10^3/uL; Eosinophils% 3.1 % (0-5); Hematocrit 36.6 % (40-54); Hemoglobin 12.9 g/dL (13.0-16.5); Lymphocyte # 2.73 X10^3/ul (0.83-4.51); Lymphocyte % 33.3 % (19-41); Mean Corp Hgb Conc 35.2 g/dL (32-36); Mean Corpuscular Hgb 34.4 pg (27.0-32.0); Mean Corpuscular Volume 97.6 fL (80-94); Monocyte# 0.71 X10^3/uL; Monocyte% 8.7 % (0-10); NRBC Flagged by Analyzer 0 % (0-5); Neutrophil % 53.7 % (47-70); Platelet Count 221 K/mm3 (150-450); RBC Distribution Width CV 12.5 % (11.6-14.6); RBC Distribution Width SD 44.5 fl (35.1-43.9); Red Blood Count 3.75 M/mm3 (4.6-6.2); White Blood Count 8.2 K/mm3 (4.4-11.0)
[2021-11-04 23:16] VITALS: BP 113/68; PULSE 40; RESP 16; O2SAT 99
[2021-11-04 23:23] LABS: Anion Gap 10 (5-15); BUN 47 mg/dL (7-18); BUN/Creat Ratio 27.8 RATIO (10-20); Calcium,Total 9.8 mg/dL (8.5-10.1); Chloride 107 mmol/L (98-107); Creatinine, Serum 1.69 mg/dL (0.70-1.30); EST Glomerular Filtration Rate 43 mL/min (>60); Est Glom Filt Rate - Afr Amer 52 mL/min (>60); Glucose 150 mg/dL (74-106); Sodium Level 141 mmol/L (136-145); Thyroid Stim Hormone (TSH) 1.46 uIU/mL (0.358-3.74); Troponin-I HS 8 pg/mL (3.0-78.0)
[2021-11-05] VITALS (27 sets, daily range): BP systolic 102–152; BP diastolic 52–74; PULSE 28–98; RESP 12–24; TEMP 36–36.8; O2SAT 97–100; BMI 29.4
[2021-11-05] MEDS: Atropine Sulfate 1 MG/10 ML Syringe IV (00:02)
[2021-11-05 00:48] LABS: Troponin-I HS 10 pg/mL (3.0-78.0)
--- NOTE | 2021-11-05 01:28 | PCM.HP.STD ---
HPI - General General Date of Admission: 11/05/21 Date of Service: 11/05/21 Chief Complaint: Chest tightness HPI Narrative LEONA PASCUAL, is a 71 M with a significant history of CAD status post CABG; aortic aneurysm; and mitral valve repair who presents to the emergency department with chest tightness that began 3 to 4 days ago. Associated with his symptom is shortness of breath and nausea. Reportedly his shortness of breath and chest tightness worsens with exertion and improves with rest. His chest pain radiated to his bilateral ears and throat. Further he reports headache. He also reports a longstanding history of Vertigo when he stands up. [facility] Medical History Abdominal aortic aneurysm Abnormal LFTs Arthritis Atherosclerotic heart disease of [place] coronary artery without angina pectoris C. difficile diarrhea Essential (primary) hypertension Gall stones Gallbladder polyp Gallstone pancreatitis Hepatic steatosis Hyperlipidemia Non-rheumatic mitral regurgitation Obesity Sliding hiatal hernia TIA (transient ischemic attack) Type 2 diabetes mellitus Home Medications iifheilc-low-cdrrz acid 0.4 mg-lycopene 300 mcg-lutein 250 mcg tablet 1 ea PO QHS multivitamin 10/11/13 [History Last Taken 04/27/17] Lactobacillus acidophilus 1.5 mg (250 million cell) capsule 2,000 mmu cells PO BID 11/29/17 [History Last Taken Unknown] aspirin 81 mg chewable tablet 81 mg PO DAILY heart health 05/23/19 [History Last Taken Unknown] bee pollen 550 mg capsule 550 mg PO DAILY 05/23/19 [History Last Taken Unknown] prostegenix 1 cap PO DAILY 05/23/19 [History Last Taken Unknown] famotidine 40 mg tablet 40 mg PO DAILY #90 tabs 03/29/20 [Rx Last Taken Unknown] lisinopril 20 mg tablet 20 mg PO BID #180 tabs 10/08/20 [Rx Last Taken Unknown] metformin 500 mg tablet,extended release 24 hr 500 mg PO DAILY 10/08/20 [History Last Taken Unknown] metoprolol tartrate 25 mg tablet 25 mg PO BID #180 tabs 10/08/20 [Rx Last Taken Unknown] hydrochlorothiazide 25 mg tablet 25 mg PO DAILY 04/08/21 [History Last Taken Unknown] valacyclovir 500 mg tablet (Valtrex) 1,000 mg PO BID PRN herpes 04/08/21 [History Last Taken Unknown] atorvastatin 80 mg tablet 80 mg PO QHS #90 tabs 09/29/21 [Rx Last Taken Unknown] amoxicillin 500 mg tablet 2,000 mg PO ONCE PRN Mitral valve repair #8 tabs 10/07/21 [Rx Last Taken Unknown] ibuprofen 600 mg tablet 600 mg PO ONCE 10/07/21 [History Last Taken Unknown] omega 9-maq-pib-fish oil 900 mg-1,400 mg capsule,delayed release (Fish Oil) 2 cap PO BID 10/07/21 [History Last Taken Unknown] tadalafil 20 mg tablet (Cialis) 20 mg PO DAILY PRN Erectile Dysfunction 10/07/21 [History Last Taken Unknown] Allergy/AdvReac Type Severity Reaction Status Date / Time fenofibrate Allergy Unknown Verified 11/04/21 22:13 naproxen sodium [From Aleve] AdvReac Other Verified 11/04/21 22:13 Family History Mother Diabetes Father Heart disease Surgical History H/O coronary artery bypass surgery (10/25/17) H/O repair of rotator cuff H/O shoulder surgery History of hernia repair History of left knee surgery History of mitral valve repair (10/25/17) Hx laparoscopic cholecystectomy Status post total replacement of left hip Social History Smoking Status: Never smoker alcohol intake: never substance use type: does not use caffeine: Yes Type: coffee Number of servings: 3 what type of physical activity do you participate in: none seatbelt use: always do you feel safe at home: Yes ROS ROS Narrative Pertinent positives and pertinent negatives as noted in HPI. All other systems were reviewed and are negative Vital Signs Vital Signs Vital Signs: 11/04/21 22:11 11/04/21 22:22 11/04/21 23:16 Temperature 97.4 F L Temperature Source Temporal Pulse Rate 38 L 40 L Respiratory Rate 18 16 Respiratory Effort Normal Non-Labored Blood Pressure 165/68 H 113/68 Blood Pressure Mean 100 83 Pulse Ox 99 99 Oxygen Delivery Method Room Air Room Air 11/05/21 00:05 11/05/21 00:04 11/05/21 01:25 Temperature 96.8 F L Temperature Source Oral Pulse Rate 43 L 35 L 42 L Respiratory Rate 18 12 20 H Respiratory Effort Blood Pressure 113/61 113/61 140/72 H Blood Pressure Mean 78 78 94 Pulse Ox 99 99 99 Oxygen Delivery Method Room Air Room Air Room Air Weight Weight: 100 kg Body Mass Index (BMI) 31.6 Physical Exam Narrative Physical exam: General: Well-nourished, well-developed. Head: Normocephalic, atraumatic, no tenderness Eyes: Vision is grossly intact. EOMI ENT, no trauma, moist mucous membranes, no rhinorrhea Neck: Nontender, full range of motion. CVS: Bradycardia. S1-S2 present. No murmur, gallop or rub. Respiratory : clear to auscultation bilaterally, chest wall nontender, no wheezing Abdomen: Soft, nontender, nondistended, normal bowel sounds, no masses : Deferred Back: Nontender, no CVA tenderness, no midline spinal tenderness, deformities, step-offs Extremities: Nontender full range of motion, no trauma Skin: Normal color, no trauma, abrasions Neuro: Alert, oriented, cranial nerves II through XII grossly intact. Psychiatry: Normal mood. Normal affect. Not depressed. Not anxious. Results Lab / Micro Data Result Diagrams: 11/04/21 22:20 11/04/21 22:20 Labs: Laboratory Results - last 24 hr 11/04/21 22:20: Sodium 141, Potassium 4.0, Chloride 107, Carbon Dioxide 24.0, Anion Gap 10, BUN 47 H, Creatinine 1.69 H, Estim Creat Clear Calc 41.40, Est GFR (MDRD) Af Amer 52 L, Est GFR (MDRD) Non-Af 43 L, BUN/Creatinine Ratio 27.8 H, Glucose 150 H, Calcium 9.8, Magnesium 2.0, Troponin I High Sens 8, TSH 1.46 11/04/21 22:20: WBC 8.2, RBC 3.75 L, Hgb 12.9 L, Hct 36.6 L, MCV 97.6 H, MCH 34.4 H, MCHC 35.2, RDW Std Deviation 44.5 H, RDW Coeff of Kvng 12.5, Plt Count 221, MPV 10.0, Immature Gran % (Auto) 0.500, Neut % (Auto) 53.7, Lymph % (Auto) 33.3, [place] % (Auto) 8.7, Eos % (Auto) 3.1, Baso % (Auto) 0.7, Absolute Neuts (auto) 4.4, Absolute Lymphs (auto) 2.73, Nucleated RBC % 0 11/05/21 00:26: Troponin I High Sens 10 Radiology Impression Chest/Abdomen/Pelvis CTA 11/04/21 22:30 IMPRESSION: Infrarenal abdominal aortic aneurysm as detailed above. No evidence of thoracic aortic dissection. Lungs are clear. No acute findings in the abdomen or pelvis. Electronically Signed: Chaz Linton, DO at 0:21 EDT , Assessment & Plan Assessment/Plan (1) Mobitz type II atrioventricular block: (2) Essential (primary) hypertension: (3) Type 2 diabetes mellitus: PLAN: Plan Mobitz type II intraventricular block and chest pain Daily aspirin continued. High intensity statin continued. Lipid profile ordered. Received atropine x2 times at emergency department. Emergency Department doctor discussed the case with cardiology who recommended holding beta-dustin. Beta-dustin will be held. Magnesium is normal. Potassium is normal. TSH is normal. Cardiology consult. Initial high-sensitivity troponin was 8. Repeat was 10. Pacer pads in place. Patient reports plan echocardiogram on 11/07/2021. Will order echocardiogram while inpatient. CTA chest/abdomen/pelvis was visualized and independently interpreted. CTA with a known infrarenal abdominal aortic aneurysm. Hypertension Blood pressure is not within goal Lisinopril and hydrochlorothiazide held secondary JAJA. Metoprolol held secondary to Mobitz 2 AV block. Trend blood pressure and adjust blood pressure medications. Diabetes mellitus Patient with mild hyperglycemia on presentation A1c on 08/26/2021 was 5.9 which is actually in prediabetic range. Metformin held Monitor Accu-Cheks Correction scale insulin ordered. JAJA on CKD Stage II Review of community records: 09/09/2021 creatinine was 1.27. eGFR was 60. On 08/26/2021 creatinine was 126 EGFR was 61. Creatinine on presentation was 1.69. Gentle IV hydration ordered. Avoid nephrotoxins. Lisinopril held. HCTZ held. Hydralazine ordered. DVT Prophylaxis: SCD ordered Charges/Coding Visit Charges Inpatient E&M: 87089 Init Hosp L3
--- NOTE | 2021-11-05 02:47 | EKG12_ITS ---
Test Reason : CP Blood Pressure : / mmHG Vent. Rate : 034 BPM Atrial Rate : 034 BPM P-R Int : 244 ms QRS Dur : 102 ms QT Int : 492 ms P-R-T Axes : 064 038 065 degrees QTc Int : 369 ms sinus bradycardia with 2nd degree block Septal infarct , age undetermined Abnormal ECG When compared with ECG of 20-AUG-2017 07:14, VT interval has increased Vent. rate has decreased BY 24 BPM Septal infarct is now Present Confirmed by CLARITA GOFF, LIBRADO ([id number]), newspaper editor JAH BARNES ([id number]) on 11/07/2021 1:56:07 PM Referred By: Confirmed By:LIBRADO OTTO MD
[2021-11-05] MEDS: Acetaminophen 500 MG Tablet 1000 MG PO (03:08)
[2021-11-05] MEDS: 0.9% Normal Saline 1,000 ML 75 ML IV (03:14)
[2021-11-05 04:49] LABS: Absolute Lymphocyte Count 2.09 X10^3/uL (0.83-4.51); Absolute Neutrophil Count 3.7 X10^3/uL (2.0-7.7); Basophil# 0.05 X10^3/uL; Basophil% 0.8 % (0-1); Eosinophil# 0.21 X10^3/uL; Eosinophils% 3.2 % (0-5); Hematocrit 33.7 % (40-54); Hemoglobin 11.8 g/dL (13.0-16.5); Lymphocyte # 2.09 X10^3/ul (0.83-4.51); Lymphocyte % 31.6 % (19-41); Mean Corpuscular Hgb 34.2 pg (27.0-32.0); Mean Corpuscular Volume 97.7 fL (80-94); Mean Platelet Vol. 10.1 fl (6.2-12.0); Monocyte# 0.53 X10^3/uL; NRBC Flagged by Analyzer 0 % (0-5); Neutrophil # 3.68 X10^3/uL (2.7-7.7); Neutrophil % 55.6 % (47-70); Platelet Count 175 K/mm3 (150-450); RBC Distribution Width CV 12.5 % (11.6-14.6); RBC Distribution Width SD 44.3 fl (35.1-43.9); Red Blood Count 3.45 M/mm3 (4.6-6.2); White Blood Count 6.6 K/mm3 (4.4-11.0)
[2021-11-05 05:10] LABS: Troponin-I HS 10 pg/mL (3.0-78.0)
[2021-11-05 05:17] LABS: Anion Gap 6 (5-15); BUN 41 mg/dL (7-18); Calcium,Total 8.9 mg/dL (8.5-10.1); Chloride 108 mmol/L (98-107); Creatinine, Serum 1.28 mg/dL (0.70-1.30); EST Glomerular Filtration Rate 59 mL/min (>60); Est Glom Filt Rate - Afr Amer 71 mL/min (>60); Glucose 162 mg/dL (74-106); Potassium 4.3 mmol/L (3.5-5.1); Sodium Level 139 mmol/L (136-145)
--- NOTE | 2021-11-05 05:55 | ECHOCS_ITS ---
Reason For Study: Chest Pain Procedure This was a 2D Doppler, Color Flow transthoracic echocardiogram. The study was technically difficult. Contrast injection was performed. Exam performed portable in patient room. Left Ventricle Normal left ventricle. The estimated ejection fraction is 55-60 %. Right Ventricle Normal right ventricle. Normal systolic function. Atria The left atrium is moderately enlarged. Normal right atrium. Mitral Valve Mitral valve annuloplasty repair. Mild (1+) mitral valve insufficiency. Tricuspid Valve Normal tricuspid valve. Mild (1+) tricuspid valve insufficiency. Aortic Valve Normal aortic valve. Mild (1+) aortic valve insufficiency. Pulmonic Valve The pulmonic valve is not well visualized. Great Vessels Normal aortic root. Pericardium/Pleural No pericardial effusion. Medication Diluted definity 1.5ml given slow IV push to enhance endocardial definition. MMode/2D Measurements & Calculations LVIDd: 4.7 cm IVSd: 1.1 cm Ao root diam: 3.8 cm LVIDs: 2.6 cm LVPWd: 0.90 cm LA dimension: 5.0 cm RVDd: 4.5 cm FS: 43.5 % LAV(MOD-bp): 66.5 ml LA A4 area: 23.9 cm2 RA A4 area: 16.8 cm2 LAV(MOD-bp) Indexed: 30.9 ml/m2 LAV(MOD-sp2): 57.8 ml LAV(MOD-sp4): 70.9 ml Time Measurements MV dec time: 0.38 sec Doppler Measurements & Calculations MV E max josemanuel: 40.1 cm/sec Lat Peak E' Josemanuel: 6.5 cm/sec Med Peak E' Josemanuel: 6.7 cm/sec MV A max josemanuel: 143.4 cm/sec E/E' lat: 6.2 E/E' med: 6.0 MV E/A: 0.28 MV V2 max: 173.3 cm/sec MV P1/2t max josemanuel: 68.9 cm/sec LV V1 max: 134.7 cm/sec MV max P.0 mmHg MV P1/2t: 258.6 msec LV V1 max P.3 mmHg MV V2 mean: 67.8 cm/sec MV dec slope: 78.0 cm/sec2 MV mean P.4 mmHg MV V2 VTI: 47.4 cm MVA(P1/2t): 0.85 cm2 PA V2 max: 101.0 cm/sec TR max josemanuel: 278.0 cm/sec TR max P.0 mmHg ECHO/Echo Complete W/ Contrast Interpretation Summary The estimated ejection fraction is 55-60 %. No significant changes from previous echo Ordering Physician: En Edmonds Referring Physician: Compa Ramos Performed By: Francisco Smith RCS
[2021-11-05] MEDS: Insulin Lispro 100 UNIT/ML INSULN.PEN SC ×2 (05:56→15:50)
[2021-11-05 06:16] LABS: Bedside Glucose 162 mg/dL (74-106)
[2021-11-05] MEDS: Aspirin 81 MG TAB.CHEW PO (08:22)
[2021-11-05] MEDS: Famotidine 20 MG Tablet PO (08:22)
[2021-11-05] MEDS: Omega-3 Acid Ethyl Esters 1 GM Capsule 2 GM PO ×2 (08:22→21:04)
[2021-11-05] MEDS: Acetaminophen 325 MG Tablet 650 MG PO (08:26)
[2021-11-05 11:26] LABS: Bedside Glucose 124 mg/dL (74-106)
--- NOTE | 2021-11-05 14:25 | PCM.CONS.C ---
Assessment & Plan Assessment/Plan (1) H/O coronary artery bypass surgery: (2) Hyperlipidemia: QUALIFIERS: Hyperlipidemia type: pure hypercholesterolemia Qualified Code(s): E78.00 - Pure hypercholesterolemia, unspecified; E78.0 - Pure hypercholesterolemia (3) Essential (primary) hypertension: (4) Type 2 diabetes mellitus: (5) Mobitz type II atrioventricular block: PLAN: 71-year-old patient, has symptoms of discomfort and pain in the left upper arm and jaw. Also describes symptoms of tightness in the chest The symptoms has been for the last 3 to 4 days Associated with symptoms shortness of breath Patient known to have history of CAD, status post CABG 2018 With GOODMAN to LAD, mitral valve repair with annuloplasty Cardiac care plan recommendations; 1. Patient has abnormal EKG with evidence of 2:1 AV block. Review of the cardiac telemetry no evidence of high-grade AV block noted. Discontinue beta-dustin and AV blocking medication 2.'s heart rate is slow around 28 and will transfer to ICU With the plan of placing a transcutaneous pacer at bedside with atropine 3. Patient will be scheduled for permanent pacemaker implant and cardiac catheterization as he had symptoms of chest pain and CAD in 2018. To assess for progression of CAD and assess patency of the GOODMAN graft I discussed the cardiac care plan in detail with the patient, medical team and nursing staff. HPI Consult Data Date of Consult: 11/05/21 HPI Narrative Reason for Consultation: Patient with CAD/CABG/mitral annuloplasty. 2:! AV block/SSS HPI Narrative: LEONA PASCUAL, is a 71 M who presents [facility] Medical History Abdominal aortic aneurysm Abnormal LFTs Arthritis Atherosclerotic heart disease of [place] coronary artery without angina pectoris C. difficile diarrhea Essential (primary) hypertension Gall stones Gallbladder polyp Gallstone pancreatitis Hepatic steatosis Hyperlipidemia Non-rheumatic mitral regurgitation Obesity Sliding hiatal hernia TIA (transient ischemic attack) Type 2 diabetes mellitus Home Medications dhcdqtxf-luc-wwrap acid 0.4 mg-lycopene 300 mcg-lutein 250 mcg tablet 1 ea PO QHS multivitamin 10/11/13 [History Last Taken 04/27/17] Lactobacillus acidophilus 1.5 mg (250 million cell) capsule 2,000 mmu cells PO BID 11/29/17 [History Last Taken Unknown] aspirin 81 mg chewable tablet 81 mg PO DAILY [facility] 05/23/19 [History Last Taken Unknown] bee pollen 550 mg capsule 550 mg PO DAILY 05/23/19 [History Last Taken Unknown] prostegenix 1 cap PO DAILY 05/23/19 [History Last Taken Unknown] famotidine 40 mg tablet 40 mg PO DAILY #90 tabs 03/29/20 [Rx Last Taken Unknown] lisinopril 20 mg tablet 20 mg PO BID #180 tabs 10/08/20 [Rx Last Taken Unknown] metformin 500 mg tablet,extended release 24 hr 500 mg PO DAILY 10/08/20 [History Last Taken Unknown] metoprolol tartrate 25 mg tablet 25 mg PO BID #180 tabs 10/08/20 [Rx Last Taken Unknown] hydrochlorothiazide 25 mg tablet 25 mg PO DAILY 04/08/21 [History Last Taken Unknown] valacyclovir 500 mg tablet (Valtrex) 1,000 mg PO BID PRN herpes 04/08/21 [History Last Taken Unknown] atorvastatin 80 mg tablet 80 mg PO QHS #90 tabs 09/29/21 [Rx Last Taken Unknown] amoxicillin 500 mg tablet 2,000 mg PO ONCE PRN Mitral valve repair #8 tabs 10/07/21 [Rx Last Taken Unknown] ibuprofen 600 mg tablet 600 mg PO ONCE 10/07/21 [History Last Taken Unknown] omega 8-wqf-set-fish oil 900 mg-1,400 mg capsule,delayed release (Fish Oil) 2 cap PO BID 10/07/21 [History Last Taken Unknown] tadalafil 20 mg tablet (Cialis) 20 mg PO DAILY PRN Erectile Dysfunction 10/07/21 [History Last Taken Unknown] Allergy/AdvReac Type Severity Reaction Status Date / Time fenofibrate Allergy Unknown Verified 11/04/21 22:13 naproxen sodium [From Aleve] AdvReac Other Verified 11/04/21 22:13 Family History Mother Diabetes Father Heart disease Surgical History H/O coronary artery bypass surgery (10/25/17) H/O repair of rotator cuff H/O shoulder surgery History of hernia repair History of left knee surgery History of mitral valve repair (10/25/17) Hx laparoscopic cholecystectomy Status post total replacement of left hip Social History Smoking Status: Never smoker alcohol intake: never substance use type: does not use caffeine: Yes Type: coffee Number of servings: 3 what type of physical activity do you participate in: none seatbelt use: always do you feel safe at home: Yes Physical Exam Narrative Patient seen and evaluated at bedside, at bedside at time of evaluation Had symptoms of jaw and shoulder discomfort associated with shortness of breath on walking on exertion Is alert orientated comfortable resting Cardiovascular exam S1-S2 regular No systolic or diastolic murmur Chest exam clear to auscultation bilateral. Risk Stratification Risk Stratification Applicable: Yes Age >/= 65: Yes >/= 3 CAD Risk Factors (HTN, HLD, DM, family hx of CAD, or current smoker): Yes Aspirin Use in the Past 7 Days: Yes Severe Angina (>/= episodes in 24 hours): No EKG ST Changes >/= 0.5mm: No Positive Cardiac Marker: No SAÚL Risk Stratification Score: 3 SAÚL % Risk: 13% Risk Objective Data Vital Signs: Vital Signs Temp Pulse Resp BP Pulse Ox O2 Del Method 98.2 F 38 L 12 108/64 99 Room Air 11/05/21 14:10 11/05/21 14:10 11/05/21 14:10 11/05/21 14:10 11/05/21 14:10 11/05/21 14:10 Oxygen Delivery Method Room Air Weight: 216 lb 14.958 oz Body Mass Index (BMI) 29.4 Intake & Output: Intake and Output for Last 24 Hours 11/03/21 11/04/21 11/05/21 23:59 23:59 23:59 Intake Total 1807.5 / 1807.5 Balance 1807.5 / 1807.5 Lab / Micro Data Result Diagrams: 11/05/21 04:34 11/05/21 04:34 Labs: Laboratory Results - last 24 hr 11/04/21 22:20: Sodium 141, Potassium 4.0, Chloride 107, Carbon Dioxide 24.0, Anion Gap 10, BUN 47 H, Creatinine 1.69 H, Estim Creat Clear Calc 41.40, Est GFR (MDRD) Af Amer 52 L, Est GFR (MDRD) Non-Af 43 L, BUN/Creatinine Ratio 27.8 H, Glucose 150 H, Calcium 9.8, Magnesium 2.0, Troponin I High Sens 8, TSH 1.46 11/04/21 22:20: WBC 8.2, RBC 3.75 L, Hgb 12.9 L, Hct 36.6 L, MCV 97.6 H, MCH 34.4 H, MCHC 35.2, RDW Std Deviation 44.5 H, RDW Coeff of Kvng 12.5, Plt Count 221, MPV 10.0, Immature Gran % (Auto) 0.500, Neut % (Auto) 53.7, Lymph % (Auto) 33.3, [place] % (Auto) 8.7, Eos % (Auto) 3.1, Baso % (Auto) 0.7, Absolute Neuts (auto) 4.4, Absolute Lymphs (auto) 2.73, Nucleated RBC % 0 11/05/21 00:26: Troponin I High Sens 10 11/05/21 04:34: WBC 6.6, RBC 3.45 L, Hgb 11.8 L, Hct 33.7 L, MCV 97.7 H, MCH 34.2 H, MCHC 35.0, RDW Std Deviation 44.3 H, RDW Coeff of Kvng 12.5, Plt Count 175, MPV 10.1, Immature Gran % (Auto) 0.800, Neut % (Auto) 55.6, Lymph % (Auto) 31.6, [place] % (Auto) 8.0, Eos % (Auto) 3.2, Baso % (Auto) 0.8, Absolute Neuts (auto) 3.7, Absolute Lymphs (auto) 2.09, Nucleated RBC % 0 11/05/21 04:34: Sodium 139, Potassium 4.3, Chloride 108 H, Carbon Dioxide 25.0, Anion Gap 6, BUN 41 H, Creatinine 1.28, Estim Creat Clear Calc 58.10, Est GFR (MDRD) Af Amer 71, Est GFR (MDRD) Non-Af 59 L, BUN/Creatinine Ratio 32.0 H, Glucose 162 H, Calcium 8.9 11/05/21 04:34: Troponin I High Sens 10 11/05/21 05:53: POC Glucose 162 H 11/05/21 10:56: POC Glucose 124 H Cardiology Labs/Tests 11/04/21 22:20: Sodium 141, Potassium 4.0, Chloride 107, Carbon Dioxide 24.0, Anion Gap 10, BUN 47 H, Creatinine 1.69 H, Est GFR (MDRD) Af Amer 52 L, Est GFR (MDRD) Non-Af 43 L, BUN/Creatinine Ratio 27.8 H, Glucose 150 H, Calcium 9.8, Magnesium 2.0 11/04/21 22:20: WBC 8.2, RBC 3.75 L, Hgb 12.9 L, Hct 36.6 L, MCV 97.6 H, MCH 34.4 H, MCHC 35.2, Plt Count 221, MPV 10.0, Immature Gran % (Auto) 0.500, Neut % (Auto) 53.7, Lymph % (Auto) 33.3, [place] % (Auto) 8.7, Eos % (Auto) 3.1, Baso % (Auto) 0.7, Absolute Neuts (auto) 4.4, Nucleated RBC % 0 11/05/21 04:34: WBC 6.6, RBC 3.45 L, Hgb 11.8 L, Hct 33.7 L, MCV 97.7 H, MCH 34.2 H, MCHC 35.0, Plt Count 175, MPV 10.1, Immature Gran % (Auto) 0.800, Neut % (Auto) 55.6, Lymph % (Auto) 31.6, [place] % (Auto) 8.0, Eos % (Auto) 3.2, Baso % (Auto) 0.8, Absolute Neuts (auto) 3.7, Nucleated RBC % 0 11/05/21 04:34: Sodium 139, Potassium 4.3, Chloride 108 H, Carbon Dioxide 25.0, Anion Gap 6, BUN 41 H, Creatinine 1.28, Est GFR (MDRD) Af Amer 71, Est GFR (MDRD) Non-Af 59 L, BUN/Creatinine Ratio 32.0 H, Glucose 162 H, Calcium 8.9 Rhythm: EKG: ECHO: Stress Test: Cardiac Cath: PCI: CT Surgery: Holter monitor: EPS: PPM: CXR: Chest CT Scan: Radiography Diagnostic Testing: Radiology Impression Chest/Abdomen/Pelvis CTA 11/04/21 22:30 IMPRESSION: Infrarenal abdominal aortic aneurysm as detailed above. No evidence of thoracic aortic dissection. Lungs are clear. No acute findings in the abdomen or pelvis. Electronically Signed: Chaz LintonDO at 0:21 EDT , Echocardiogram 11/05/21 05:55 Interpretation Summary The estimated ejection fraction is 55-60 %. No significant changes from previous echo Ordering Physician: En Edmonds Referring Physician: Compa Ramos Performed By: Francisco Smith RCS
--- NOTE | 2021-11-05 15:07 | CASEMGMT ---
SW let pt know that LW/POA not on file. SW asked him to bring documents in as able. TRICE Muniz
--- NOTE | 2021-11-05 15:43 | NURSING ---
Report called to CHAPARRO Bell in ICU at this time.
[2021-11-05 16:16] LABS: Bedside Glucose 175 mg/dL (74-106)
[2021-11-05] MEDS: Multivitamins,Ther W-Minerals Tablet 1 TABLET PO (21:04)
[2021-11-05] MEDS: Atorvastatin Calcium 80 MG Tablet PO (21:04)
[2021-11-05 21:25] LABS: Bedside Glucose 135 mg/dL (74-106)
[2021-11-06] VITALS (30 sets, daily range): BP systolic 92–144; BP diastolic 54–81; PULSE 33–41; RESP 11–23; TEMP 36.5–37.1; O2SAT 95–100
[2021-11-06] MEDS: Insulin Lispro 100 UNIT/ML INSULN.PEN SC ×2 (07:42→20:38)
[2021-11-06] MEDS: Famotidine 20 MG Tablet PO ×2 (07:43→20:30)
[2021-11-06] MEDS: Aspirin 81 MG TAB.CHEW PO (07:43)
[2021-11-06] MEDS: Omega-3 Acid Ethyl Esters 1 GM Capsule 2 GM PO ×2 (07:44→20:31)
[2021-11-06 08:06] LABS: Bedside Glucose 156 mg/dL (74-106)
[2021-11-06 09:42] LABS: Absolute Neutrophil Count 3.7 X10^3/uL (2.0-7.7); Basophil# 0.05 X10^3/uL; Basophil% 0.8 % (0-1); Eosinophil# 0.18 X10^3/uL; Eosinophils% 2.9 % (0-5); Hematocrit 35.6 % (40-54); Hemoglobin 12.3 g/dL (13.0-16.5); Lymphocyte % 28.9 % (19-41); Mean Corp Hgb Conc 34.6 g/dL (32-36); Mean Corpuscular Hgb 34.2 pg (27.0-32.0); Mean Corpuscular Volume 98.9 fL (80-94); Mean Platelet Vol. 10.4 fl (6.2-12.0); NRBC Flagged by Analyzer 0 % (0-5); Neutrophil # 3.67 X10^3/uL (2.7-7.7); Neutrophil % 59.1 % (47-70); Platelet Count 193 K/mm3 (150-450); RBC Distribution Width CV 12.7 % (11.6-14.6); RBC Distribution Width SD 45.4 fl (35.1-43.9); White Blood Count 6.2 K/mm3 (4.4-11.0)
[2021-11-06 09:54] LABS: Anion Gap 8 (5-15); BUN 27 mg/dL (7-18); BUN/Creat Ratio 28.3 RATIO (10-20); Calcium,Total 9.3 mg/dL (8.5-10.1); Chloride 108 mmol/L (98-107); Creatinine, Serum 0.95 mg/dL (0.70-1.30); EST Glomerular Filtration Rate 83 mL/min (>60); Est Glom Filt Rate - Afr Amer 100 mL/min (>60); Estimated Creatinine Clearance 78.28 ml/min; Glucose 142 mg/dL (74-106); Potassium 4.3 mmol/L (3.5-5.1); Sodium Level 141 mmol/L (136-145)
--- NOTE | 2021-11-06 10:18 | PN.HOSP_ITS ---
Subjective Subjective Continues to be bradycardic, he does have mild symptoms occasionally but otherwise is doing well. Denies any chest pain at this time. Objective Data Objective Data Vital Signs: Vital Signs Temp Pulse Resp BP Pulse Ox O2 Del Method 98.4 F 38 L 16 118/59 L 99 Room Air 11/06/21 10:00 11/06/21 10:00 11/06/21 10:00 11/06/21 10:00 11/06/21 10:00 11/06/21 10:00 Oxygen Delivery Method Room Air Weight: 216 lb 0.848 oz Body Mass Index (BMI) 29.4 Intake & Output: Intake and Output for Last 24 Hours 11/05/21 11/06/21 11/07/21 03:59 03:59 03:59 Intake Total 500 / 500 1307.5 / 1307.5 Output Total 1425 / 1425 700 / 700 Balance 500 / 500 -117.5 / -117.5 -700 / -700 Lab / Micro Data Result Diagrams: 11/06/21 04:50 11/06/21 04:50 Labs: Laboratory Results - last 24 hr 11/05/21 10:56: POC Glucose 124 H 11/05/21 15:49: POC Glucose 175 H 11/05/21 21:02: POC Glucose 135 H 11/06/21 04:50: WBC 6.2, RBC 3.60 L, Hgb 12.3 L, Hct 35.6 L, MCV 98.9 H, MCH 34.2 H, MCHC 34.6, RDW Std Deviation 45.4 H, RDW Coeff of Kvng 12.7, Plt Count 193, MPV 10.4, Immature Gran % (Auto) 0.300, Neut % (Auto) 59.1, Lymph % (Auto) 28.9, [place] % (Auto) 8.0, Eos % (Auto) 2.9, Baso % (Auto) 0.8, Absolute Neuts (auto) 3.7, Absolute Lymphs (auto) 1.80, Nucleated RBC % 0 11/06/21 04:50: Sodium 141, Potassium 4.3, Chloride 108 H, Carbon Dioxide 25.0, Anion Gap 8, BUN 27 H, Creatinine 0.95, Estim Creat Clear Calc 78.28, Est GFR (MDRD) Af Amer 100, Est GFR (MDRD) Non-Af 83, BUN/Creatinine Ratio 28.3 H, Glucose 142 H, Calcium 9.3 11/06/21 07:40: POC Glucose 156 H Radiography Diagnostic Testing: Radiology Impression Echocardiogram 11/05/21 05:55 Interpretation Summary The estimated ejection fraction is 55-60 %. No significant changes from previous echo Ordering Physician: En Edmonds Referring Physician: Compa Ramos Performed By: Francisco Smith RCS Physical Exam Narrative General: Alert, Oriented x3, Cooperative, No apparent distress HEENT: Atraumatic, PERRLA, EOMI, Normocephalic Oral: Moist Mucosa Neck: Supple, No JVD Lungs: Clear to auscultation, Normal air movement, No rhonchi, No wheeze, No rales Cardiovascular: Bradycardic, Regular Rhythm, Normal S1, Normal S2, No murmurs Abdomen: Soft, Non Tender, Non-Distended, No Hepato-splenomegaly Extremities: No edema, Capillary Refill Less than 3 Seconds Skin: No rashes, No breakdown Musculoskeletal: No Tenderness to Palpation of Joints or Extremities Neurological: Cranial nerves II-XII grossly intact, Motor Exam 5/5 strength throughout, Sensory exam intact to light touch and pain Psych/Mental Status: Normal Affect, Appropriate Assessment & Plan Assessment/Plan (1) Mobitz type II atrioventricular block: (2) Essential (primary) hypertension: (3) Type 2 diabetes mellitus: PLAN: Plan 1. Mobitz type II intraventricular block and chest pain/HTN/HLD/CAD status post CABG ? Appreciate cardiology's assistance ? We will plan for heart cath and possible pacemaker placement on Sunday ?CT of the chest was unremarkable ? Echo with an EF of 55 to 60% with no significant difference from previous ? Given his bradycardia we will hold his metoprolol ? Continue with as needed hydralazine 2. DM2/JAJA ? Stable ? Hold his metformin ? Accu-Cheks AC at bedtime ? Sliding scale insulin ? We will make adjustments as necessary ? JAJA has resolved DVT: SCDs Charges/Coding Visit Charges Inpatient E&M: 41085 Subs Hosp L2
--- NOTE | 2021-11-06 10:50 | PCM.PN.CARD ---
Subjective Subjective No symptoms noted, feeling better quality assurance monitor body showed Mobitz type II AV block 2:1 AV block Objective Data Vital Signs: Vital Signs Temp Pulse Resp BP Pulse Ox O2 Del Method 98.4 F 38 L 16 118/59 L 99 Room Air 11/06/21 10:00 11/06/21 10:00 11/06/21 10:00 11/06/21 10:00 11/06/21 10:00 11/06/21 10:00 Oxygen Delivery Method Room Air Weight: 216 lb 0.848 oz Body Mass Index (BMI) 29.4 Intake & Output: Intake and Output for Last 24 Hours 11/04/21 11/05/21 11/06/21 23:59 23:59 23:59 Intake Total 1807.5 / 1807.5 Output Total 1425 / 1425 700 / 700 Balance 382.5 / 382.5 -700 / -700 Lab / Micro Data Result Diagrams: 11/06/21 04:50 11/06/21 04:50 Labs: Laboratory Results - last 24 hr 11/05/21 10:56: POC Glucose 124 H 11/05/21 15:49: POC Glucose 175 H 11/05/21 21:02: POC Glucose 135 H 11/06/21 04:50: WBC 6.2, RBC 3.60 L, Hgb 12.3 L, Hct 35.6 L, MCV 98.9 H, MCH 34.2 H, MCHC 34.6, RDW Std Deviation 45.4 H, RDW Coeff of Kvng 12.7, Plt Count 193, MPV 10.4, Immature Gran % (Auto) 0.300, Neut % (Auto) 59.1, Lymph % (Auto) 28.9, [place] % (Auto) 8.0, Eos % (Auto) 2.9, Baso % (Auto) 0.8, Absolute Neuts (auto) 3.7, Absolute Lymphs (auto) 1.80, Nucleated RBC % 0 11/06/21 04:50: Sodium 141, Potassium 4.3, Chloride 108 H, Carbon Dioxide 25.0, Anion Gap 8, BUN 27 H, Creatinine 0.95, Estim Creat Clear Calc 78.28, Est GFR (MDRD) Af Amer 100, Est GFR (MDRD) Non-Af 83, BUN/Creatinine Ratio 28.3 H, Glucose 142 H, Calcium 9.3 11/06/21 07:40: POC Glucose 156 H Cardiology Labs/Tests 11/06/21 04:50: WBC 6.2, RBC 3.60 L, Hgb 12.3 L, Hct 35.6 L, MCV 98.9 H, MCH 34.2 H, MCHC 34.6, Plt Count 193, MPV 10.4, Immature Gran % (Auto) 0.300, Neut % (Auto) 59.1, Lymph % (Auto) 28.9, [place] % (Auto) 8.0, Eos % (Auto) 2.9, Baso % (Auto) 0.8, Absolute Neuts (auto) 3.7, Nucleated RBC % 0 11/06/21 04:50: Sodium 141, Potassium 4.3, Chloride 108 H, Carbon Dioxide 25.0, Anion Gap 8, BUN 27 H, Creatinine 0.95, Est GFR (MDRD) Af Amer 100, Est GFR (MDRD) Non-Af 83, BUN/Creatinine Ratio 28.3 H, Glucose 142 H, Calcium 9.3 Rhythm: EKG: ECHO: Stress Test: Cardiac Cath: PCI: CT Surgery: Holter monitor: EPS: PPM: CXR: Chest CT Scan: Radiography Diagnostic Testing: Radiology Impression Echocardiogram 11/05/21 05:55 Interpretation Summary The estimated ejection fraction is 55-60 %. No significant changes from previous echo Ordering Physician: En Edmonds Referring Physician: Compa Ramos Performed By: Francisco Smith RCS Physical Exam Narrative Alert orientated x3 Cardiovascular exam S1-S2 regular There is no systolic or diastolic murmur Chest exam is clear to auscultation bilateral. Assessment & Plan Assessment/Plan (1) H/O coronary artery bypass surgery: (2) History of mitral valve repair: (3) Essential (primary) hypertension: (4) Hyperlipidemia: QUALIFIERS: Hyperlipidemia type: pure hypercholesterolemia Qualified Code(s): E78.00 - Pure hypercholesterolemia, unspecified; E78.0 - Pure hypercholesterolemia (5) Abdominal aortic aneurysm: (6) Type 2 diabetes mellitus: (7) Mobitz type II atrioventricular block: PLAN: This 71-year-old patient with history of CAD S/p CABG with GOODMAN to LAD Single-vessel bypass surgery Mitral valve repair. Exam patient presentation with symptoms of chest pain Patient remained stable hemodynamically Cardiac care and plan; 1. Patient scheduled for left heart cath to assess patency of the bypass graft and also to evaluate for progression of CAD As his presentation is typical of angina 2. As well scheduled for permanent pacemaker due to conduction abnormality/underlying sick sinus syndrome Patient is off AV blocking medication and hydralazine for control of hypertension as needed. 3. His primary fast food team member Dr. Karimi will resume cardiac care.
[2021-11-06 11:30] LABS: Bedside Glucose 136 mg/dL (74-106)
[2021-11-06 16:26] LABS: Bedside Glucose 110 mg/dL (74-106)
[2021-11-06] MEDS: Atorvastatin Calcium 80 MG Tablet PO (20:31)
[2021-11-06] MEDS: Multivitamins,Ther W-Minerals Tablet 1 TABLET PO (20:31)
[2021-11-07] VITALS (29 sets, daily range): BP systolic 93–170; BP diastolic 54–101; PULSE 34–86; RESP 14–27; TEMP 36.2–38.6; O2SAT 93–100
[2021-11-07 01:50] LABS: Bedside Glucose 163 mg/dL (74-106)
[2021-11-07 05:36] LABS: Absolute Lymphocyte Count 1.61 X10^3/uL (0.83-4.51); Absolute Neutrophil Count 5.1 X10^3/uL (2.0-7.7); Basophil# 0.04 X10^3/uL; Basophil% 0.5 % (0-1); Eosinophil# 0.16 X10^3/uL; Eosinophils% 2.1 % (0-5); Hematocrit 36.6 % (40-54); Lymphocyte # 1.61 X10^3/ul (0.83-4.51); Lymphocyte % 21.6 % (19-41); Mean Corp Hgb Conc 35.5 g/dL (32-36); Mean Corpuscular Hgb 34.6 pg (27.0-32.0); Mean Corpuscular Volume 97.3 fL (80-94); Mean Platelet Vol. 9.8 fl (6.2-12.0); Monocyte# 0.55 X10^3/uL; Monocyte% 7.4 % (0-10); NRBC Flagged by Analyzer 0 % (0-5); Neutrophil # 5.08 X10^3/uL (2.7-7.7); Platelet Count 199 K/mm3 (150-450); RBC Distribution Width CV 12.6 % (11.6-14.6); RBC Distribution Width SD 44.5 fl (35.1-43.9); Red Blood Count 3.76 M/mm3 (4.6-6.2); White Blood Count 7.5 K/mm3 (4.4-11.0)
[2021-11-07 05:48] LABS: Anion Gap 5 (5-15); BUN 22 mg/dL (7-18); BUN/Creat Ratio 24.4 RATIO (10-20); Chloride 106 mmol/L (98-107); EST Glomerular Filtration Rate 88 mL/min (>60); Est Glom Filt Rate - Afr Amer 107 mL/min (>60); Estimated Creatinine Clearance 82.63 ml/min; Glucose 140 mg/dL (74-106); Potassium 4.1 mmol/L (3.5-5.1); Sodium Level 139 mmol/L (136-145)
--- NOTE | 2021-11-07 05:55 | EKG12_ITS ---
Test Reason : AM Blood Pressure : / mmHG Vent. Rate : 036 BPM Atrial Rate : 072 BPM P-R Int : 240 ms QRS Dur : 110 ms QT Int : 494 ms P-R-T Axes : 034 000 052 degrees QTc Int : 382 ms Sinus rhythm with 2nd degree A-V block Septal infarct , age undetermined Abnormal ECG When compared with ECG of 05-NOV-2021 03:49, MANUAL COMPARISON REQUIRED, DATA IS UNCONFIRMED Confirmed by CLARITA GOFF, LIBRADO ([id number]), editor farm journal JAH BARNES ([id number]) on 11/07/2021 1:58:33 PM Referred By: YAIR Confirmed By:LIBRADO OTTO MD
--- NOTE | 2021-11-07 07:33 | PN.HOSP_ITS ---
Subjective Subjective Patient is a 71-year-old gentleman who presented with chest pain and lightheadedness. Was found to have high degree AV block (second-degree AV block Mobitz 2). Admitted to the intensive care unit consult placed to cardiology patient scheduled to undergo pacemaker placement Objective Data Objective Data Vital Signs: Vital Signs Temp Pulse Resp BP Pulse Ox O2 Del Method 98.6 F 35 L 15 93/61 97 Room Air 11/07/21 04:00 11/07/21 07:00 11/07/21 07:00 11/07/21 07:00 11/07/21 07:00 11/07/21 07:00 Oxygen Delivery Method Room Air Weight: 98 kg Body Mass Index (BMI) 29.4 Intake & Output: Intake and Output for Last 24 Hours 11/05/21 11/06/21 11/07/21 23:59 23:59 23:59 Intake Total 1807.5 / 1807.5 560 / 560 Output Total 1425 / 1425 2000 / 2350 800 / 800 Balance 382.5 / 382.5 -1440 / -1790 -800 / -800 Lab / Micro Data Result Diagrams: 11/07/21 05:15 11/07/21 05:15 Labs: Laboratory Results - last 24 hr 11/06/21 04:50: WBC 6.2, RBC 3.60 L, Hgb 12.3 L, Hct 35.6 L, MCV 98.9 H, MCH 34.2 H, MCHC 34.6, RDW Std Deviation 45.4 H, RDW Coeff of Kvng 12.7, Plt Count 193, MPV 10.4, Immature Gran % (Auto) 0.300, Neut % (Auto) 59.1, Lymph % (Auto) 28.9, [place] % (Auto) 8.0, Eos % (Auto) 2.9, Baso % (Auto) 0.8, Absolute Neuts (auto) 3.7, Absolute Lymphs (auto) 1.80, Nucleated RBC % 0 11/06/21 04:50: Sodium 141, Potassium 4.3, Chloride 108 H, Carbon Dioxide 25.0, Anion Gap 8, BUN 27 H, Creatinine 0.95, Estim Creat Clear Calc 78.28, Est GFR (MDRD) Af Amer 100, Est GFR (MDRD) Non-Af 83, BUN/Creatinine Ratio 28.3 H, Glucose 142 H, Calcium 9.3 11/06/21 07:40: POC Glucose 156 H 11/06/21 11:07: POC Glucose 136 H 11/06/21 16:06: POC Glucose 110 H 11/06/21 20:37: POC Glucose 163 H 11/07/21 05:15: WBC 7.5, RBC 3.76 L, Hgb 13.0, Hct 36.6 L, MCV 97.3 H, MCH 34.6 H, MCHC 35.5, RDW Std Deviation 44.5 H, RDW Coeff of Kvng 12.6, Plt Count 199, MPV 9.8, Immature Gran % (Auto) 0.400, Neut % (Auto) 68.0, Lymph % (Auto) 21.6, [place] % (Auto) 7.4, Eos % (Auto) 2.1, Baso % (Auto) 0.5, Absolute Neuts (auto) 5.1, Absolute Lymphs (auto) 1.61, Nucleated RBC % 0 11/07/21 05:15: Sodium 139, Potassium 4.1, Chloride 106, Carbon Dioxide 28.0, Anion Gap 5, BUN 22 H, Creatinine 0.90, Estim Creat Clear Calc 82.63, Est GFR (MDRD) Af Amer 107, Est GFR (MDRD) Non-Af 88, BUN/Creatinine Ratio 24.4 H, Glucose 140 H, Calcium 10.0 Physical Exam Narrative GENERAL: cooperative HEENT: Atraumatic; EYES; Anicteric, Normal Conjunctiva NECK; supple, normal thyroid, RESPIRATORY: Diminished to auscultation CARDIOVASCULAR: Regular S1 S2, GI: soft, normoactive bowel sounds, : No Renal angle tenderness; EXTREMITIES: No edema, no clubbing, MUSCULOSKELETAL: no muscle wasting NEURO: Awake; no lateralizing signs. SKIN: No Rash PSYCH; Flat affect Assessment & Plan Assessment/Plan (1) Mobitz type II atrioventricular block: (2) Essential (primary) hypertension: (3) Type 2 diabetes mellitus: PLAN: Plan Patient is a 71-year-old gentleman who presented with chest pain and lightheadedness. Was found to have high degree AV block (second-degree AV block Mobitz 2). Admitted to the intensive care unit consult placed to cardiology patient scheduled to undergo pacemaker placement 1. Second-degree AV block Mobitz 2 ? Admitted to the intensive care unit consult placed to cardiology patient scheduled to undergo pacemaker placement. Case discussed with Dr. Karimi with cardiology. 2. Coronary artery disease ? With previous CABG 3. Hypertension - Blood pressure controlled, home medications continued with dose adjustment as needed 4. Dyslipidemia -Patient is on statin therapy, continued at home dose 5. Diabetes mellitus type II -patient's oral hypoglycemics held. Placed on long acting insulin, Accu-Cheks a.c. and at bedtime and covered with sliding scale insulin 6. Acute kidney injury ? Managed with IV fluids creatinine back to baseline. Ordered daily BMPs for monitoring 7. DVT prophylaxis -SCDs Charges/Coding Visit Charges Inpatient E&M: 12438 Subs Hosp L3
[2021-11-07 07:46] LABS: Bedside Glucose 142 mg/dL (74-106)
[2021-11-07] MEDS: Aspirin 81 MG TAB.CHEW PO (08:05)
[2021-11-07] MEDS: Omega-3 Acid Ethyl Esters 1 GM Capsule 2 GM PO ×2 (08:06→21:45)
[2021-11-07] MEDS: Famotidine 20 MG Tablet PO ×2 (08:06→21:45)
--- NOTE | 2021-11-07 09:41 | CASEMGMT ---
Tertiary facilities in-network with patient's insurance: [facility], [facility], [facility], , [facility], [facility], [facility]
--- NOTE | 2021-11-07 09:45 | CASEMGMT ---
RN SHAGGY Face to Face with patient for initial transition planning/care coordination assessment. RN CM introduced self and role at [facility]. Patient sitting in chair, alert and oriented, at bedside. Patient willing to participate in assessment and is able to answer all questions appropriately. Care providers, pharmacy, and demographics verified. Patient wishes to discharge home, denies need for home health at this time. Patient states he has no further needs or concerns at this time. CM to follow for discharge planning needs that may arise. PCP: Richard Specialists: Sachi night time nanny Preferred Pharmacy: [facility] Insurance: [facility] Prescription Benefit: yes Living Will/HPOA: yes, Lloy Wright LNOK: , son Living Arrangements: Patient lives with in a raised ranch with stair lift in basement or 2 step in from to enter the home. Patient is independent at home. Transportation: self, DME/HHC: Patient states he has shower chair, raised toilet, cane, crutches, grab bars, and walker at home. Patient has had [facility] in the past. Disposition Plan: Patient to discharge home with family support and follow-up plans in place. Lupe MCNAMARA, RN, CM
[2021-11-07 11:31] LABS: Bedside Glucose 117 mg/dL (74-106)
--- NOTE | 2021-11-07 15:18 | NURSING ---
Cardiology staff here to get patient for procedure at [id number]
--- NOTE | 2021-11-07 16:30 | CL.IE_ITS ---
Patient: LEONA PASCUAL Study Date: 11/07/2021 Performing: Mark Karimi MD : 1950 Age: 71 Gender: male PROCEDURES PERFORMED LP04-(23897)INITIAL PACER INSERT+DUAL LEADS INDICATIONS Mobitz (type II) AV block PROCEDURE DETAILS The patient was brought to the Catheterization Lab in the postabsorptive nonsedated state. Informed consent was obtained prior to the procedure. Local anesthetic was given subcutaneously to the left upper chest area with Lidocaine 2%. Access was achieved and a guidewire was advanced into the left subclavian vein. Incision was made to the left upper chest. PPM ventricular lead was inserted / positioned to right ventricular apex. PPM ventricular lead testing performed. PPM ventricular lead testing performed. PPM atrial lead was inserted / positioned to the right atrial appendage. PPM atrial lead testing performed. PPM generator was attached to the lead(s) and inserted into the pocket. The Ventricular PM lead sutured in place with 2-0 Silk. The Atrial lead sutured in place with 2-0 Silk. PPM generator was then interrogated by the mastercam programmer. Device pocket was irrigated with antibiotic ancef. Subcutaneous closure was completed with 3-0 Vicryl. Skin closure was completed with 4-0 Vicryl. Steri-strips applied to Lt chest area. The patient tolerated the procedure well. Estimated Blood Loss: < 10 mls IMPLANTED / EX-PLANTED DEVICES IMPLANTED DEVICE(S): PPM Ventricular lead - Basket Mender: Chang, Model # 2088TC/58 , Serial # [id number] PPM Atrial lead - Basket Mender: Chang, Model # 2088TC/52 , Serial # [id number] PPM Generator - Basket Mender: Chang, Model # [id number] , Serial # [id number] DEVICE PARAMETERS ATRIAL LEAD PARAMETERS: P wave- 5.0 (mV) threshold- 0.75 (V) impedence- 450 (OHMS) VENTRICULAR LEAD PARAMETERS: R wave- 0 (mV) Current- 0 (mA) threshold- 0.75 (V) impedence- 1250 (OHMS) DEVICE PARAMETERS: Mode- DDD Lower rate- 60 Upper rate- 120 CONCLUSIONS / RECOMMENDATIONS Device Conclusions: Successful implantation of a dual chamber pacemaker Device Recommendations: Follow up with Primary Care Physician PROCEDURE MEDICATIONS Fentanyl 50 mcg IV Versed 1 mg IV Versed 1 mg IV Oxygen: 2 L/min via nasal cannula Antibiotic given in appropriate timeframe. Ancef 2 Gm IV @ 11/07/2021 15:00:50 Signed By Mark Karimi MD On 11/07/2021 16:29:44 Mark Karimi MD
[2021-11-07] MEDS: Acetaminophen 325 MG Tablet 650 MG PO ×2 (17:05→23:08)
[2021-11-07 17:51] LABS: Bedside Glucose 113 mg/dL (74-106)
[2021-11-07] MEDS: fentaNYL 100 MCG/2 ML Ampul 25 MCG IV (19:30)
[2021-11-07] MEDS: 0.9% Saline Lock 10 ML Syringe IV ×2 (19:31→21:40)
[2021-11-07] MEDS: Atorvastatin Calcium 80 MG Tablet PO (21:44)
[2021-11-07] MEDS: Insulin Lispro 100 UNIT/ML INSULN.PEN SC (21:45)
[2021-11-07] MEDS: Multivitamins,Ther W-Minerals Tablet 1 TABLET PO (21:45)
[2021-11-07 22:21] LABS: Bedside Glucose 211 mg/dL (74-106)
[2021-11-08] VITALS (18 sets, daily range): BP systolic 121–162; BP diastolic 76–99; PULSE 68–86; RESP 20–27; TEMP 36.9–37.8; O2SAT 96–98
[2021-11-08 04:40] LABS: Bacteria 0 SEEN /hpf (None Seen); Mucous, Urine 0 SEEN /hpf (<or=2+); Red Blood Cells-Urine 0 SEEN /hpf (0-5); Squamous Epithelial Cells - UA 0 SEEN /hpf (0-5)
[2021-11-08 04:41] LABS: Absolute Lymphocyte Count 0.96 X10^3/uL (0.83-4.51); Absolute Neutrophil Count 6.8 X10^3/uL (2.0-7.7); Basophil# 0.03 X10^3/uL; Basophil% 0.4 % (0-1); Eosinophil# 0.06 X10^3/uL; Eosinophils% 0.7 % (0-5); Hematocrit 34.6 % (40-54); Hemoglobin 12.4 g/dL (13.0-16.5); Lymphocyte # 0.96 X10^3/ul (0.83-4.51); Lymphocyte % 11.5 % (19-41); Mean Corp Hgb Conc 35.8 g/dL (32-36); Mean Corpuscular Hgb 34.8 pg (27.0-32.0); Mean Corpuscular Volume 97.2 fL (80-94); Monocyte# 0.47 X10^3/uL; Monocyte% 5.6 % (0-10); NRBC Flagged by Analyzer 0 % (0-5); Neutrophil # 6.83 X10^3/uL (2.7-7.7); Neutrophil % 81.4 % (47-70); Platelet Count 188 K/mm3 (150-450); RBC Distribution Width CV 12.5 % (11.6-14.6); RBC Distribution Width SD 43.4 fl (35.1-43.9); Red Blood Count 3.56 M/mm3 (4.6-6.2); White Blood Count 8.4 K/mm3 (4.4-11.0)
[2021-11-08 04:52] LABS: Color, Urine Yellow (Yellow); Glucose, Dipstick 50 mg/dl (Normal); Ketone-Dipstick Negative (Negative); Leukocyte Esterase-Dipstick Negative /ul (Negative); Nitrite-Dipstick Negative (Negative); Occult Blood-Urine Negative /ul (Negative); Protein-Dipstick 30 mg/dl (Negative); Specific Gravity, Urine 1.015 (1.002-1.030); Urine Bilirubin Dipstick Negative (Negative); Urine Clarity Clear (Clear); Urine Urobilinogen 1 mg/dl (Normal); Urine pH 6.5 (5.0 - 8.0)
[2021-11-08 04:56] LABS: White Blood Cells 0-5 SEEN /hpf (0-5)
[2021-11-08 05:07] LABS: Anion Gap 8 (5-15); BUN 21 mg/dL (7-18); BUN/Creat Ratio 25.1 RATIO (10-20); Calcium,Total 8.8 mg/dL (8.5-10.1); Chloride 104 mmol/L (98-107); Creatinine, Serum 0.84 mg/dL (0.70-1.30); EST Glomerular Filtration Rate 96 mL/min (>60); Est Glom Filt Rate - Afr Amer 116 mL/min (>60); Estimated Creatinine Clearance 88.53 ml/min; Glucose 134 mg/dL (74-106); Magnesium 1.8 mg/dL (1.6-2.6); Phosphorus 3.2 mg/dL (2.5-4.9); Potassium 3.7 mmol/L (3.5-5.1); Sodium Level 136 mmol/L (136-145)
[2021-11-08] MEDS: Acetaminophen 325 MG Tablet 650 MG PO ×2 (05:22→11:14)
--- NOTE | 2021-11-08 05:45 | RAD_ITS ---
STUDY: X-RAY CHEST REASON FOR EXAM: Male, 71 years old. Post permanant ICD/Pacemaker -- inspiration/expiration. Arms Down. Wet read to MD TECHNIQUE: PA and lateral views of the chest. COMPARISON: 08/17/2017 FINDINGS: Left pacer in place. Sternotomy wires are midline. The lungs are clear and expanded. Right hemidiaphragm eventration and basilar atelectasis present. There is no demonstrated pleural abnormality. Normal size heart. Normal mediastinum and duran. Normal visualized pulmonary arteries. There is atherosclerotic calcification of the aortic arch with tortuosity. Normal visualized thoracic spine. Normal visualized ribs, clavicles, and shoulders. There is no demonstrated abnormality of the visualized soft tissue structures of the upper abdomen. RAD/Chest PA and Lateral IMPRESSION: No evidence of acute cardiopulmonary process with right hemidiaphragm eventration and basilar atelectasis. Electronically Signed: Marcus Gonzalez DO at 15:36 EDT ,
--- NOTE | 2021-11-08 07:23 | PCM.PN.HOSP ---
Subjective Subjective Patient underwent pacemaker placement the day prior. Postprocedure patient did develop bleeding from the site. Bleeding appears to have subsided. Patient is due to undergo pacer interrogation this a.m. Objective Data Objective Data Vital Signs: Vital Signs Temp Pulse Resp BP Pulse Ox O2 Del Method 98.7 F 72 22 H 135/80 H 98 Room Air 11/08/21 04:00 11/08/21 07:00 11/08/21 07:00 11/08/21 07:00 11/08/21 07:00 11/08/21 07:00 Oxygen Delivery Method Room Air Weight: 98.3 kg Body Mass Index (BMI) 29.4 Intake & Output: Intake and Output for Last 24 Hours 11/06/21 11/07/21 11/08/21 23:59 23:59 23:59 Intake Total 560 / 560 890 / 890 Output Total 2000 / 2350 800 / 1100 1000 / 1000 Balance -1440 / -1790 -800 / -860 -110 / -110 Lab / Micro Data Result Diagrams: 11/08/21 04:15 11/08/21 04:15 Labs: Laboratory Results - last 24 hr 11/07/21 07:28: POC Glucose 142 H 11/07/21 11:08: POC Glucose 117 H 11/07/21 17:16: POC Glucose 113 H 11/07/21 21:39: POC Glucose 211 H 11/08/21 02:30: Urine Color Yellow, Urine Clarity Clear, Urine pH 6.5, Ur Specific [place] 1.015, Urine Protein 30 H, Urine Glucose (UA) 50 H, Urine Ketones Negative, Urine Occult Blood Negative, Urine Nitrite Negative, Urine Bilirubin Negative, Urine Urobilinogen 1 H, Ur Leukocyte Esterase Negative, Urine RBC 0 SEEN, Urine WBC 0-5 SEEN, Ur Squamous Epith Cells 0 SEEN, Urine Bacteria 0 SEEN, Urine Mucus 0 SEEN 11/08/21 04:15: WBC 8.4, RBC 3.56 L, Hgb 12.4 L, Hct 34.6 L, MCV 97.2 H, MCH 34.8 H, MCHC 35.8, RDW Std Deviation 43.4, RDW Coeff of Kvng 12.5, Plt Count 188, MPV 10.0, Immature Gran % (Auto) 0.400, Neut % (Auto) 81.4 H, Lymph % (Auto) 11.5 L, [place] % (Auto) 5.6, Eos % (Auto) 0.7, Baso % (Auto) 0.4, Absolute Neuts (auto) 6.8, Absolute Lymphs (auto) 0.96, Nucleated RBC % 0 11/08/21 04:15: Sodium 136, Potassium 3.7, Chloride 104, Carbon Dioxide 24.0, Anion Gap 8, BUN 21 H, Creatinine 0.84, Estim Creat Clear Calc 88.53, Est GFR (MDRD) Af Amer 116, Est GFR (MDRD) Non-Af 96, BUN/Creatinine Ratio 25.1 H, Glucose 134 H, Calcium 8.8, Phosphorus 3.2, Magnesium 1.8 Physical Exam Narrative GENERAL: cooperative HEENT: Atraumatic; EYES; Anicteric, Normal Conjunctiva NECK; supple, normal thyroid, RESPIRATORY: Diminished to auscultation CARDIOVASCULAR: Regular S1 S2, GI: soft, normoactive bowel sounds, : No Renal angle tenderness; EXTREMITIES: Left upper extremity immobilized MUSCULOSKELETAL: no muscle wasting NEURO: Awake; no lateralizing signs. SKIN: No Rash PSYCH; Flat affect Assessment & Plan Assessment/Plan (1) Mobitz type II atrioventricular block: (2) Essential (primary) hypertension: (3) Type 2 diabetes mellitus: PLAN: Plan Patient is a 71-year-old gentleman who presented with chest pain and lightheadedness. Was found to have high degree AV block (second-degree AV block Mobitz 2). Admitted to the intensive care unit consult placed to cardiology patient scheduled to undergo pacemaker placement 1. Second-degree AV block Mobitz 2 ? Admitted to the intensive care unit consult placed to cardiology patient scheduled to undergo pacemaker placement. Case discussed with Dr. Karimi with cardiology. -11/08/2021; Patient underwent pacemaker placement the day prior (11/07/2021). Postprocedure patient did develop bleeding from the site; hemostasis achieved with local pressure 2. Coronary artery disease ? With previous CABG 3. Hypertension - Blood pressure controlled, home medications continued with dose adjustment as needed 4. Dyslipidemia -Patient is on statin therapy, continued at home dose 5. Diabetes mellitus type II -patient's oral hypoglycemics held. Placed on long acting insulin, Accu-Cheks a.c. and at bedtime and covered with sliding scale insulin 6. Acute kidney injury ? Managed with IV fluids creatinine back to baseline. Ordered daily BMPs for monitoring 7. DVT prophylaxis -SCDs Charges/Coding Visit Charges Inpatient E&M: 35363 Subs Hosp L2
[2021-11-08] MEDS: Famotidine 20 MG Tablet PO (07:55)
[2021-11-08] MEDS: Omega-3 Acid Ethyl Esters 1 GM Capsule 2 GM PO (07:56)
[2021-11-08] MEDS: Aspirin 81 MG TAB.CHEW PO (07:56)
--- NOTE | 2021-11-08 09:23 | PCM.PN.CARD ---
Subjective Subjective Seen and evaluated. Appears to be doing well. Objective Data Vital Signs: Vital Signs Temp Pulse Resp BP Pulse Ox O2 Del Method 98.7 F 78 22 H 135/80 H 98 Room Air 11/08/21 04:00 11/08/21 07:23 11/08/21 07:00 11/08/21 07:00 11/08/21 07:00 11/08/21 07:00 Oxygen Delivery Method Room Air Weight: 216 lb 11.43 oz Body Mass Index (BMI) 29.4 Intake & Output: Intake and Output for Last 24 Hours 11/06/21 11/07/21 11/08/21 23:59 23:59 23:59 Intake Total 560 / 560 890 / 890 Output Total 2000 / 2350 800 / 1100 1000 / 1000 Balance -1440 / -1790 -800 / -860 -110 / -110 Lab / Micro Data Result Diagrams: 11/08/21 04:15 11/08/21 04:15 Labs: Laboratory Results - last 24 hr 11/07/21 11:08: POC Glucose 117 H 11/07/21 17:16: POC Glucose 113 H 11/07/21 21:39: POC Glucose 211 H 11/08/21 02:30: Urine Color Yellow, Urine Clarity Clear, Urine pH 6.5, Ur Specific [place] 1.015, Urine Protein 30 H, Urine Glucose (UA) 50 H, Urine Ketones Negative, Urine Occult Blood Negative, Urine Nitrite Negative, Urine Bilirubin Negative, Urine Urobilinogen 1 H, Ur Leukocyte Esterase Negative, Urine RBC 0 SEEN, Urine WBC 0-5 SEEN, Ur Squamous Epith Cells 0 SEEN, Urine Bacteria 0 SEEN, Urine Mucus 0 SEEN 11/08/21 04:15: WBC 8.4, RBC 3.56 L, Hgb 12.4 L, Hct 34.6 L, MCV 97.2 H, MCH 34.8 H, MCHC 35.8, RDW Std Deviation 43.4, RDW Coeff of Kvng 12.5, Plt Count 188, MPV 10.0, Immature Gran % (Auto) 0.400, Neut % (Auto) 81.4 H, Lymph % (Auto) 11.5 L, [place] % (Auto) 5.6, Eos % (Auto) 0.7, Baso % (Auto) 0.4, Absolute Neuts (auto) 6.8, Absolute Lymphs (auto) 0.96, Nucleated RBC % 0 11/08/21 04:15: Sodium 136, Potassium 3.7, Chloride 104, Carbon Dioxide 24.0, Anion Gap 8, BUN 21 H, Creatinine 0.84, Estim Creat Clear Calc 88.53, Est GFR (MDRD) Af Amer 116, Est GFR (MDRD) Non-Af 96, BUN/Creatinine Ratio 25.1 H, Glucose 134 H, Calcium 8.8, Phosphorus 3.2, Magnesium 1.8 Cardiology Labs/Tests 11/08/21 02:30: Urine Color Yellow, Urine Clarity Clear, Urine pH 6.5, Ur Specific [place] 1.015, Urine Protein 30 H, Urine Glucose (UA) 50 H, Urine Ketones Negative, Urine Occult Blood Negative, Urine Nitrite Negative, Urine Bilirubin Negative, Urine Urobilinogen 1 H, Ur Leukocyte Esterase Negative, Urine RBC 0 SEEN, Urine WBC 0-5 SEEN 11/08/21 04:15: WBC 8.4, RBC 3.56 L, Hgb 12.4 L, Hct 34.6 L, MCV 97.2 H, MCH 34.8 H, MCHC 35.8, Plt Count 188, MPV 10.0, Immature Gran % (Auto) 0.400, Neut % (Auto) 81.4 H, Lymph % (Auto) 11.5 L, [place] % (Auto) 5.6, Eos % (Auto) 0.7, Baso % (Auto) 0.4, Absolute Neuts (auto) 6.8, Nucleated RBC % 0 11/08/21 04:15: Sodium 136, Potassium 3.7, Chloride 104, Carbon Dioxide 24.0, Anion Gap 8, BUN 21 H, Creatinine 0.84, Est GFR (MDRD) Af Amer 116, Est GFR (MDRD) Non-Af 96, BUN/Creatinine Ratio 25.1 H, Glucose 134 H, Calcium 8.8, Phosphorus 3.2, Magnesium 1.8 Rhythm: EKG: ECHO: Stress Test: Cardiac Cath: PCI: CT Surgery: Holter monitor: EPS: PPM: CXR: Chest CT Scan: Physical Exam Const alert, oriented x3 and no apparent distress General Appearance: cooperative HEENT hearing grossly normal bilaterally Head and Scalp: atraumatic Eyes EOMs intact bilaterally Neck General: normal visual inspection Chest inspection of chest normal and palpation of chest normal Resp normal respiratory effort Auscultation: clear to auscultation bilaterally Cardio regular rate, regular rhythm, S1 normal heart sound and S2 normal heart sound Jugular Venous Distention: JVD GI normal to inspection, nondistended, normoactive bowel sounds Extremity normal capillary refill and no pedal edema Peripheral Pulses: Yes pulses 2+ throughout and femoral pulses present Skin no rashes or lesions noted Neuro oriented x3 and CN's II-XII intact bilaterally Psych Appearance: grossly normal and appropriate Assessment & Plan Assessment/Plan (1) Mobitz type II atrioventricular block: PLAN: Patient is status post permanent pacemaker implantation. Pacemaker check this morning appears to be functioning well. Will await chest x-ray report. Otherwise can be discharged for outpatient follow-up. (2) H/O coronary artery bypass surgery: PLAN: Patient is status post coronary bypass surgery. Will be reviewed evaluated as an outpatient to see whether he needs a left heart cath or stress test.
--- NOTE | 2021-11-08 09:25 | DCINST_ITS ---
Discharge Instructions Diet Discharge Diet: No restrictions Activity Discharge Activity: May Not Drive May shower in (days): 3 Additional Activity Instructions:: May shower or bathe on [day 3]. Do not scrub the incision or soak in the tub. Just wash with soap and let the water run over the incision. Gently pat dry with towel. Medications: Take your pain medication as directed. Refer to your discharge instruction sheet for a list of medications you are to take. Dressing / Incision Call your doctor if your incision/area has: Continuous Slow Oozing, Sudden Increased Bleeding, Increased Pain/ Swelling, Increased Redness, Foul Smelling Discharge and Swelling at the incision site Call your doctor if you observe: Fever of 101 or Higher, Shortness of breath, Dizziness, Fainting spells, Swelling in the ankles, Chest pain, Prolonged hiccupping and Increased palpitations (irregular heartbeat) Suture Line Care: Avoid Pulling/Pushing and Avoid Pinching/Bending Additional Dressing/Incision Instructions:: When dressing is removed, wash and dry incision. Keep covered with a light bandage if it is rubbing against your clothing. Do not cover the incision with an airtight bandage. Change the bandage daily. Do not remove steri strips. The strips will fall off on their own. Follow Up Care Please Follow Up With: Mark Karimi MD When: Pacer follow up on November 17 at 10 AM Test Results: Test results from this visit will be discussed in further detail at your follow- up appointment, if applicable. Discharge Plan Admission Admit Date/Time: 11/05/21 14:41 Attending Provider: Parish Dickinson Primary Care Provider: Compa Ramos Consulting Providers: En Edmonds ; Josee Vuong ; Julián Chawla Discharge Orders/Prescriptions Prescriptions: No Action Lactobacillus acidophilus 1.5 mg (250 million cell) capsule 2,000 mmu cells PO BID prostegenix 1 cap PO DAILY bee pollen 550 mg capsule 550 mg PO DAILY ibuprofen 600 mg tablet 600 mg PO ONCE Fish Oil 900-1,400 mg capsule,delayed release(DR/EC) 2 cap PO BID lisinopril 20 mg tablet 20 mg PO BID Qty: 180 3RF metoprolol tartrate 25 mg tablet 25 mg PO BID Qty: 180 3RF metformin 500 mg tablet extended release 24 hr 500 mg PO DAILY hydrochlorothiazide 25 mg tablet 25 mg PO DAILY valacyclovir [Valtrex] 500 mg tablet 1,000 mg PO BID PRN (Reason: herpes) tadalafil [Cialis] 20 mg tablet 20 mg PO DAILY PRN (Reason: Erectile Dysfunction) Rx Instructions: administer approximately 30min before sexual activity; do not use more than 1 dose per 24hrs amoxicillin 500 mg tablet 2,000 mg PO ONCE PRN (Reason: Mitral valve repair) Qty: 8 2RF Rx Instructions: Take 4 tablets 30-60 minutes prior to dental procedure feejdgmr-xwh-HC-lycopen-lutein 1 EACH tablet 1 ea PO QHS Label Comments: supplement aspirin 81 mg tablet,chewable 81 mg PO DAILY Label Comments: heart health famotidine 40 mg tablet 40 mg PO DAILY Qty: 90 3RF atorvastatin 80 mg tablet 80 mg PO QHS Qty: 90 3RF Referrals / Follow Up: Compa Ramos MD [Primary Care Provider] -
[2021-11-08] MEDS: Insulin Lispro 100 UNIT/ML INSULN.PEN SC (10:35)
--- NOTE | 2021-11-08 10:42 | DS.PCM_ITS ---
Providers Date of Admission: 11/05/21 Primary Care Physician: Dr. Compa Ramos MD Consultations 11/05/21 02:47 Consult: Cardiology Routine Consulting Provider: Josee Vuong Reason for Consult: Chest Pain EMERGENT Consult: No MD Notified: Yes Date Notified: 11/05/21 Time Notified: 06:51 Method of Notification: Text Reason For Visit: DYSRHYTHMIA Diagnosis Discharge Diagnosis (1) Mobitz type II atrioventricular block: Status: Acute Code(s): I44.1 - Atrioventricular block, second degree (2) H/O coronary artery bypass surgery: Status: Resolved Code(s): Z95.1 - Presence of aortocoronary bypass graft Plan Patient is a 71-year-old gentleman who presented with chest pain and lightheadedness. Was found to have high degree AV block (second-degree AV block Mobitz 2). Admitted to the intensive care unit consult placed to cardiology patient scheduled to undergo pacemaker placement 1. Second-degree AV block Mobitz 2 ? Admitted to the intensive care unit consult placed to cardiology patient scheduled to undergo pacemaker placement. Case discussed with Dr. Karimi with cardiology. -11/08/2021; Patient underwent pacemaker placement the day prior (11/07/2021). Postprocedure patient did develop bleeding from the site; hemostasis achieved with local pressure -Chest x-ray obtained the morning following patient procedure did not show any evidence of pneumothorax. Patient subsequently discharged home with plan for patient to follow-up with cardiology as outpatient 2. Coronary artery disease ? With previous CABG 3. Hypertension - Blood pressure controlled, home medications continued with dose adjustment as needed 4. Dyslipidemia -Patient is on statin therapy, continued at home dose 5. Diabetes mellitus type II -patient's oral hypoglycemics held. Placed on long acting insulin, Accu-Cheks a.c. and at bedtime and covered with sliding scale insulin 6. Acute kidney injury ? Managed with IV fluids creatinine back to baseline. Ordered daily BMPs for monitoring 7. DVT prophylaxis -SCDs Medications at Discharge Home Medications rlquescg-nln-icgdy acid 0.4 mg-lycopene 300 mcg-lutein 250 mcg tablet 1 ea PO QHS multivitamin 10/11/13 Lactobacillus acidophilus 1.5 mg (250 million cell) capsule 2,000 mmu cells PO BID 11/29/17 aspirin 81 mg chewable tablet 81 mg PO DAILY heart health 05/23/19 bee pollen 550 mg capsule 550 mg PO DAILY 05/23/19 prostegenix 1 cap PO DAILY 05/23/19 famotidine 40 mg tablet 40 mg PO DAILY #90 tabs 03/29/20 lisinopril 20 mg tablet 20 mg PO BID #180 tabs 10/08/20 metformin 500 mg tablet,extended release 24 hr 500 mg PO DAILY 10/08/20 hydrochlorothiazide 25 mg tablet 25 mg PO DAILY 04/08/21 valacyclovir 500 mg tablet (Valtrex) 1,000 mg PO BID PRN herpes 04/08/21 atorvastatin 80 mg tablet 80 mg PO QHS #90 tabs 09/29/21 amoxicillin 500 mg tablet 2,000 mg PO ONCE PRN Mitral valve repair #8 tabs 10/07/21 ibuprofen 600 mg tablet 600 mg PO ONCE 10/07/21 omega 0-jqk-vbk-fish oil 900 mg-1,400 mg capsule,delayed release (Fish Oil) 2 cap PO BID 10/07/21 tadalafil 20 mg tablet (Cialis) 20 mg PO DAILY PRN Erectile Dysfunction 10/07/21 Hospital Course Summary of Care Provided Minutes Spent on Discharge: 40 Physical Exam Narrative GENERAL: cooperative HEENT: Atraumatic; EYES; Anicteric, Normal Conjunctiva NECK; supple, normal thyroid, RESPIRATORY: Diminished to auscultation CARDIOVASCULAR: Regular S1 S2, GI: soft, normoactive bowel sounds, : No Renal angle tenderness; EXTREMITIES: Left upper extremity immobilized MUSCULOSKELETAL: no muscle wasting NEURO: Awake; no lateralizing signs. SKIN: No Rash PSYCH; Flat affect Weight / BMI Weight Weight: 98.3 kg Body Mass Index (BMI) 29.4 ABG / Lab / Microbiology Data Result Diagrams: 11/08/21 04:15 11/08/21 04:15 Laboratory: Laboratory Results - last 24 hr 11/07/21 11:08: POC Glucose 117 H 11/07/21 17:16: POC Glucose 113 H 11/07/21 21:39: POC Glucose 211 H 11/08/21 02:30: Urine Color Yellow, Urine Clarity Clear, Urine pH 6.5, Ur Specific [place] 1.015, Urine Protein 30 H, Urine Glucose (UA) 50 H, Urine Ketones Negative, Urine Occult Blood Negative, Urine Nitrite Negative, Urine Bilirubin Negative, Urine Urobilinogen 1 H, Ur Leukocyte Esterase Negative, Urine RBC 0 SEEN, Urine WBC 0-5 SEEN, Ur Squamous Epith Cells 0 SEEN, Urine Bacteria 0 SEEN, Urine Mucus 0 SEEN 11/08/21 04:15: WBC 8.4, RBC 3.56 L, Hgb 12.4 L, Hct 34.6 L, MCV 97.2 H, MCH 34.8 H, MCHC 35.8, RDW Std Deviation 43.4, RDW Coeff of Kvng 12.5, Plt Count 188, MPV 10.0, Immature Gran % (Auto) 0.400, Neut % (Auto) 81.4 H, Lymph % (Auto) 11.5 L, [place] % (Auto) 5.6, Eos % (Auto) 0.7, Baso % (Auto) 0.4, Absolute Neuts (auto) 6.8, Absolute Lymphs (auto) 0.96, Nucleated RBC % 0 11/08/21 04:15: Sodium 136, Potassium 3.7, Chloride 104, Carbon Dioxide 24.0, Anion Gap 8, BUN 21 H, Creatinine 0.84, Estim Creat Clear Calc 88.53, Est GFR (MDRD) Af Amer 116, Est GFR (MDRD) Non-Af 96, BUN/Creatinine Ratio 25.1 H, Glucose 134 H, Calcium 8.8, Phosphorus 3.2, Magnesium 1.8 D/C Instructions Discharge Diet: No restrictions May shower in (days): 3 Additional Activity Instructions: May shower or bathe on [day 3]. Do not scrub the incision or soak in the tub. Just wash with soap and let the water run over the incision. Gently pat dry with towel. Medications: Take your pain medication as directed. Refer to your discharge instruction sheet for a list of medications you are to take. Call your doctor if your incision/area has: Continuous Slow Oozing, Sudden Increased Bleeding, Increased Pain/ Swelling, Increased Redness, Foul Smelling Discharge and Swelling at the incision site Call your doctor if you observe: Fever of 101 or Higher, Shortness of breath, Dizziness, Fainting spells, Swelling in the ankles, Chest pain, Prolonged hiccupping and Increased palpitations (irregular heartbeat) Suture Line Care: Avoid Pulling/Pushing and Avoid Pinching/Bending Additional Dressing/Incision Instructions: When dressing is removed, wash and dry incision. Keep covered with a light bandage if it is rubbing against your clothing. Do not cover the incision with an airtight bandage. Change the bandage daily. Do not remove steri strips. The strips will fall off on their own. Please Follow Up With: Mark Karimi MD When: Pacer follow up on November 17 at 10 AM Meaningful Use Info Meaningful Use Diagnoses (Choose all that apply): None applicable Discharge Plan Admission Admit Date/Time: 11/05/21 14:41 Attending Provider: Parish Dickinson Primary Care Provider: Compa Ramos Consulting Providers: En Edmonds ; Josee Vuong ; Julián Chawla Discharge Orders/Prescriptions Prescriptions: Continued Lactobacillus acidophilus 1.5 mg (250 million cell) capsule 2,000 mmu cells PO BID prostegenix 1 cap PO DAILY bee pollen 550 mg capsule 550 mg PO DAILY ibuprofen 600 mg tablet 600 mg PO ONCE Fish Oil 900-1,400 mg capsule,delayed release(DR/EC) 2 cap PO BID lisinopril 20 mg tablet 20 mg PO BID Qty: 180 3RF metformin 500 mg tablet extended release 24 hr 500 mg PO DAILY hydrochlorothiazide 25 mg tablet 25 mg PO DAILY valacyclovir [Valtrex] 500 mg tablet 1,000 mg PO BID PRN (Reason: herpes) tadalafil [Cialis] 20 mg tablet 20 mg PO DAILY PRN (Reason: Erectile Dysfunction) Rx Instructions: administer approximately 30min before sexual activity; do not use more than 1 dose per 24hrs amoxicillin 500 mg tablet 2,000 mg PO ONCE PRN (Reason: Mitral valve repair) Qty: 8 2RF Rx Instructions: Take 4 tablets 30-60 minutes prior to dental procedure znrojmus-qzq-LW-lycopen-lutein 1 EACH tablet 1 ea PO QHS Label Comments: supplement aspirin 81 mg tablet,chewable 81 mg PO DAILY Label Comments: heart health famotidine 40 mg tablet 40 mg PO DAILY Qty: 90 3RF atorvastatin 80 mg tablet 80 mg PO QHS Qty: 90 3RF Discontinued metoprolol tartrate 25 mg tablet 25 mg PO BID Qty: 180 3RF Referrals / Follow Up: Mark Karimi MD [Med Staff - Active Staff] - Within 2 Weeks Compa Ramos MD [Primary Care Provider] - Within 1 Week Disposition Disposition (needs filled in before D/C Order can be placed): Home, Self Care Charges/Coding Visit Charges Inpatient E&M: 28916 Disch Hosp
[2021-11-08 10:56] LABS: Bedside Glucose 192 mg/dL (74-106)
--- NOTE | 2021-11-08 11:35 | CASEMGMT ---
RN CM in to discuss discharge needs with patient. at bedside. Patient and deny needs at this time. Patient had no further questions or concerns at this time.
--- NOTE | 2021-11-08 12:48 | CHAPLAIN ---
Type of Pastoral Visit _x__ Initial Visit ___ Follow-up Visit ___ On-call Visit ___ General Patient Visit ___ Spiritual Assessment ___ Family Conference ___ Bereavement ___ Rapid Response ___ Code Blue ___ Other (describe below) Pastoral Care Referral From _x__ Patient ___ Family ___ Nurse ___ Physician ___ Fire Crew Specialist ___ Ordnance Keeper ___ Other (describe below) Sacrament/Intervention _x__ Active listening ___ Anointing ___ Jain ___ Bereavement ___ Communion ___ Emma exploration ___ ___ Life review ___ Prayer ___ Reconciliation ___ Sacrament of Sick ___ Supportive presence ___ Wedding ___ Other (describe below) Pastoral Comments patient reports that he is being discharged and that he has no other needs; spouse is with him; both speak of gratefulness to God's care and thank this cath lab technologist for making attempt to support
== END 2021-11-08 13:05 | disposition home or self-care (01) | DRG 243 ==
LOC: ED 11-05 01:19 → PCU 11-05 01:29 → ICU 11-05 23:20
PROVIDERS: Family Medicine; Internal Medicine Cardiovascular Disease; Admitting Provider Hospitalist; Emergency Provider Emergency Medicine; PCP Family Medicine; Visit Provider Internal Medicine
DX: I44.1 Atrioventricular block, second degree (principal); N17.9 Acute kidney failure, unspecified; E11.65 Type 2 diabetes mellitus with hyperglycemia; I71.4 Abdominal aortic aneurysm, without rupture; K76.0 Fatty (change of) liver, not elsewhere classified; E78.5 Hyperlipidemia, unspecified; I25.10 Atherosclerotic heart disease of native coronary artery without angina pectoris; I34.0 Nonrheumatic mitral (valve) insufficiency; I10 Essential (primary) hypertension; E78.00 Pure hypercholesterolemia, unspecified; Z95.1 Presence of aortocoronary bypass graft; Z95.2 Presence of prosthetic heart valve; Z87.19 Personal history of other diseases of the digestive system; Z86.73 Personal history of transient ischemic attack (TIA), and cerebral infarction without residual deficits; E66.9 Obesity, unspecified; Z79.82 Long term (current) use of aspirin; Z79.84 Long term (current) use of oral hypoglycemic drugs; Z79.899 Other long term (current) drug therapy; Z68.31 Body mass index [BMI] 31.0-31.9, adult
CPT/HCPCS: 33208; 36415; 71046; 71275; 74174; 80048; 81001; 82962; 83735; 84100; 84443; 84484; 85025; 87086; 93005; 93306; 99152; 99153; 99284; J7030; J7040; J7050; Q9957; Q9967; A4216; C1894; C8929

== ENCOUNTER 2022-03-09 15:55 | Emergency (ER) | payer MEDICARE, SELFPAY ==
[2022-03-09 15:56] VITALS: BP 135/83; PULSE 75; RESP 18; TEMP 36.7; O2SAT 99; BMI 32.0
[2022-03-09 17:09] VITALS: BP 138/94; PULSE 74; RESP 16; O2SAT 95
--- NOTE | 2022-03-09 17:09 | CT_ITS ---
INDICATION: Headache EXAMINATION: CT BRAIN - CT Head or Brain W/O Contrast Injection TECHNIQUE: Multiple axial images were obtained of the head without intravenous contrast. A radiation dose optimization technique was used for this scan. IV Contrast dosage and agent: None. COMPARISON: 12/17/2016 MRI FINDINGS: BRAIN PARENCHYMA: High left frontal lobe encephalomalacia. Wedge-shaped encephalomalacia near the right frontal operculum. Tiny posterior right frontal lobe encephalomalacia. No intra- or extra-axial hemorrhage. No evidence of acute infarct. No intracranial mass or mass effect. There is preservation of the clarke/white matter interface. Posterior fossa structures are unremarkable. CSF SPACES: Appropriate for age. No hydrocephalus. Basal cisterns are patent. CALVARIUM, SKULL BASE, PARANASAL SINUSES AND MASTOID AIR CELLS: Right paranasal sinus opacification. No discrete lytic or blastic abnormalities. ORBITS: Both globes, extraocular muscles, optic nerves and retrobulbar fat appear unremarkable. 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 No acute abnormal intracranial finding. Electronically Signed: Brayan Nuñez MD at 18:19 EST ,
[2022-03-09 17:27] LABS: Absolute Lymphocyte Count 2.37 X10^3/uL (0.83-4.51); Absolute Neutrophil Count 5.3 X10^3/uL (2.0-7.7); Basophil# 0.08 X10^3/uL; Basophil% 0.9 % (0-1); Eosinophil# 0.33 X10^3/uL; Eosinophils% 3.8 % (0-5); Hematocrit 39.2 % (40-54); Hemoglobin 14.5 g/dL (13.0-16.5); Lymphocyte # 2.37 X10^3/ul (0.83-4.51); Lymphocyte % 26.9 % (19-41); Mean Corpuscular Volume 94.7 fL (80-94); Mean Platelet Vol. 10.5 fl (6.2-12.0); Monocyte# 0.71 X10^3/uL; Monocyte% 8.1 % (0-10); NRBC Flagged by Analyzer 0 % (0-5); Neutrophil # 5.25 X10^3/uL (2.7-7.7); Neutrophil % 59.6 % (47-70); Platelet Count 233 K/mm3 (150-450); RBC Distribution Width CV 12.2 % (11.6-14.6); RBC Distribution Width SD 42.4 fl (35.1-43.9); Red Blood Count 4.14 M/mm3 (4.6-6.2); White Blood Count 8.8 K/mm3 (4.4-11.0)
--- NOTE | 2022-03-09 17:30 | RAD_ITS ---
INDICATION: SOB EXAMINATION/TECHNIQUE: X-RAY - XR Chest 1 View COMPARISON: 08/17/2017, 11/08/2021 FINDINGS: LINES/DEVICES: Dual lead cardiac device. LUNGS: No consolidation, edema or effusion. No pneumothorax. Right lung base scarring. MEDIASTINUM AND CARDIOVASCULAR STRUCTURES: Sternal wires and CABG. Central airways and mediastinal contour are unremarkable. RAD/Chest 1 View (Portable) IMPRESSION: No radiographic evidence of acute cardiopulmonary disease. Electronically Signed: Brayan Nuñez MD at 17:54 EST ,
[2022-03-09 17:44] LABS: Anion Gap 5 (5-15); BUN 29 mg/dL (7-18); BUN/Creat Ratio 22.8 RATIO (10-20); Calcium,Total 9.8 mg/dL (8.5-10.1); Chloride 105 mmol/L (98-107); Creatinine, Serum 1.27 mg/dL (0.70-1.30); EST Glomerular Filtration Rate 59 mL/min (>60); Est Glom Filt Rate - Afr Amer 72 mL/min (>60); Estimated Creatinine Clearance 55.09 ml/min; Glucose 144 mg/dL (74-106); Potassium 4.2 mmol/L (3.5-5.1); Sodium Level 135 mmol/L (136-145); Troponin-I HS (w/2H Reflex) 9 pg/mL (3.0-78.0)
[2022-03-09 17:51] VITALS: BP 111/77; BP 128/85; BP 150/97; PULSE 69; PULSE 70; PULSE 79
[2022-03-09 17:53] LABS: BNP,B-Type NATRIURETIC PEPTIDE 53.3 pg/mL (0-100)
[2022-03-09 17:57] LABS: D-Dimer Quantitative (DVT/PE) 0.65 FEU/ug/m (0.27-0.49)
--- NOTE | 2022-03-09 18:06 | EX.ED.DYSGE1 ---
HPI History of Present Illness Chief Complaint: Dizziness Informant: patient Narrative Narrative: Patient is a 71-year-old male with history of coronary artery disease status post CABG in 2018 and complete heart block status post permanent cardiac pacemaker placement with Dr. Karimi in 11/10 presenting with dizziness and shortness of breath. Patient states before his pacemaker was placed he was having pretty significant dyspnea on exertion. Today he was walking and only made a few 100 feet before he felt extremely short of breath. He started feel dizzy which he describes as a spinning sensation and then had some blurry vision. He also notes he had some mild pain in the left neck and his left head. He has been feeling intermittently dizzy for the past few days. Denies any swelling of his legs, diaphoresis, nausea or vomiting. Denies any chest pain. Denies any recent medication changes. Denies any recent fever or chills. Notes that for the past 1 to 2 weeks he has been having a little bit of runny nose but denies any significant nasal congestion. Denies any history of vertigo. States he came in to be evaluated further because of the shortness of breath is reminiscent of when he needed a pacemaker. He currently has no symptoms and feels back to baseline. [facility] Medical History Abdominal aortic aneurysm Abnormal LFTs Arthritis Atherosclerotic heart disease of [place] coronary artery without angina pectoris C. difficile diarrhea Complete heart block Essential (primary) hypertension Gall stones Gallbladder polyp Gallstone pancreatitis Hepatic steatosis Hyperlipidemia Non-rheumatic mitral regurgitation Obesity Sliding hiatal hernia TIA (transient ischemic attack) Type 2 diabetes mellitus Home Medications neelzwcp-xwr-wqxog acid 0.4 mg-lycopene 300 mcg-lutein 250 mcg tablet 1 ea PO QHS multivitamin 10/11/13 [History Last Taken 04/27/17] Lactobacillus acidophilus 1.5 mg (250 million cell) capsule 2,000 mmu cells PO BID 11/29/17 [History Last Taken Unknown] aspirin 81 mg chewable tablet 81 mg PO DAILY heart health 05/23/19 [History Last Taken Unknown] bee pollen 550 mg capsule 550 mg PO DAILY 05/23/19 [History Last Taken Unknown] prostegenix 1 cap PO DAILY 05/23/19 [History Last Taken Unknown] famotidine 40 mg tablet 40 mg PO DAILY #90 tabs 03/29/20 [Rx Last Taken Unknown] metformin 500 mg tablet,extended release 24 hr 500 mg PO DAILY 10/08/20 [History Last Taken Unknown] valacyclovir 500 mg tablet (Valtrex) 1,000 mg PO BID PRN herpes 04/08/21 [History Last Taken Unknown] atorvastatin 80 mg tablet 80 mg PO QHS #90 tabs 09/29/21 [Rx Last Taken Unknown] amoxicillin 500 mg tablet 2,000 mg PO ONCE PRN Mitral valve repair #8 tabs 10/07/21 [Rx Last Taken Unknown] ibuprofen 600 mg tablet 600 mg PO ONCE 10/07/21 [History Last Taken Unknown] omega 3-wlb-gxw-fish oil 900 mg-1,400 mg capsule,delayed release (Fish Oil) 2 cap PO BID 10/07/21 [History Last Taken Unknown] tadalafil 20 mg tablet (Cialis) 20 mg PO DAILY PRN Erectile Dysfunction 10/07/21 [History Last Taken Unknown] lisinopril 20 mg tablet 20 mg PO BID #180 tabs 11/21/21 [Rx Last Taken Unknown] hydrochlorothiazide 25 mg tablet 25 mg PO DAILY #90 tabs 12/20/21 [Rx Last Taken Unknown] metoprolol tartrate 25 mg tablet 25 mg PO BID #180 tabs 02/10/22 [Rx Last Taken Unknown] Allergy/AdvReac Type Severity Reaction Status Date / Time fenofibrate Allergy Unknown Verified 03/09/22 15:55 naproxen sodium [From Aleve] AdvReac Other Verified 03/09/22 15:55 Family History Mother Diabetes Father Heart disease Surgical History H/O coronary artery bypass surgery (10/25/17) H/O repair of rotator cuff H/O shoulder surgery History of hernia repair History of left knee surgery History of mitral valve repair (10/25/17) History of permanent cardiac pacemaker placement (11/07/21) Hx laparoscopic cholecystectomy Status post total replacement of left hip Social History Smoking Status: Never smoker alcohol intake: never substance use type: does not use caffeine: Yes Type: coffee Number of servings: 3 what type of physical activity do you participate in: none seatbelt use: always do you feel safe at home: Yes ROS ROS ED Constitutional Constitutional ED: Denies chills or fever(s) Eyes Eyes: Reports blurry vision; Denies change in vision or diplopia ENT ENT ED: Reports rhinorrhea; Denies sore throat Cardiovascular Cardiovascular: Denies chest pain, orthopnea, palpitations or paroxysmal nocturnal dyspnea Respiratory/Chest Respiratory/Chest: Reports cough and dyspnea on exertion; Denies orthopnea, paroxysmal nocturnal dyspnea or sputum Gastrointestinal Gastrointestinal: Denies abdominal pain, nausea or vomiting Musculoskeletal Musculoskeletal: Denies arthralgias or myalgias Integumentary Denies rash Neurologic Neurologic: Reports headache(s); Denies paresthesias or weakness Psychiatric Psychiatric: Denies anxiety or depression Hematologic/Lymphatic Hematologic/Lymphatic: Denies easy bleeding or easy bruising EXAM Physical Exam Const Vital Signs: 03/09/22 15:56 03/09/22 17:09 03/09/22 17:09 Temperature 98.1 F Temperature Source Temporal Pulse Rate 75 74 Pulse Rate [Lying] Pulse Rate [Sitting (for 1 minute prior to obtaining)] Pulse Rate [Standing (for 1 minute prior to obtaining)] Respiratory Rate 18 16 Respiratory Effort Normal Non-Labored Blood Pressure 135/83 H 138/94 H Blood Pressure [Lying] Blood Pressure [Sitting (for 1 minute prior to obtaining)] Blood Pressure [Standing (for 1 minute prior to obtaining)] Blood Pressure Mean 100 108 Blood Pressure Mean [Lying] Blood Pressure Mean [Sitting (for 1 minute prior to obtaining)] Blood Pressure Mean [Standing (for 1 minute prior to obtaining)] Pulse Ox 99 95 Oxygen Delivery Method Room Air Room Air 03/09/22 17:51 Temperature Temperature Source Pulse Rate Pulse Rate [Lying] 70 Pulse Rate [Sitting (for 1 minute prior to obtaining)] 69 Pulse Rate [Standing (for 1 minute prior to obtaining)] 79 Respiratory Rate Respiratory Effort Blood Pressure Blood Pressure [Lying] 111/77 Blood Pressure [Sitting (for 1 minute prior to obtaining)] 128/85 H Blood Pressure [Standing (for 1 minute prior to obtaining)] 150/97 H Blood Pressure Mean Blood Pressure Mean [Lying] 88 Blood Pressure Mean [Sitting (for 1 minute prior to obtaining)] 99 Blood Pressure Mean [Standing (for 1 minute prior to obtaining)] 114 Pulse Ox Oxygen Delivery Method Positive well nourished and well developed General Appearance ED: well developed and NAD HEENT Reports TM's clear and moist mucous membranes Negative for trauma Tympanic Membrane ED: Yes TM's clear Eyes PERRL and EOMs intact bilaterally Eyes Narrative: No nystagmus on exam Neck supple Chest Wall inspection of chest normal and palpation of chest normal Resp normal respiratory effort and clear to auscultation bilaterally Cardio regular rate, regular rhythm and no murmurs GI normal to inspection, nondistended, normoactive bowel sounds Palpation: soft; Negative for tender or guarding Extremity normal to inspection General Extremety ED: Negative for edema or tenderness General Extremity: Negative for edema Neuro oriented x3, CN's II-XII intact bilaterally and no sensory deficits noted Neuro Narrative: NIH = 0 Motor Exam: strength 5/5 throughout; Negative for general weakness Skin no rashes or lesions noted and no wounds MDM MDM MDM Narrative Medical decision making narrative: Patient is evaluated for an episode of dyspnea on exertion as well as dizziness today. He notes he has been having some dizziness for the past few days especially with standing. Chart review from a cardiology visit on 11/16/2021 noted then that he was having some dizziness and lightheadedness with positional changes so this does not seem to be a new symptom. Patient is currently asymptomatic with a normal physical exam including a normal neurologic exam. No physical exam finding consistent with fluid overload. Patient's CBC and BMP are unremarkable. His high-sensitivity troponin is normal at 9 and 11 he does not show acute ischemic changes on his EKG. I given these findings I do not think ACS is the cause of symptoms. No arrhythmia while in the ER. Orthostatic vital signs are unremarkable. Patient's BNP is normal. No physical exam or laboratory findings consistent with fluid overload. Chest x-ray shows no acute process, independently interpreted by myself as well as radiology. Patient's D-dimer is normal per age-adjusted at 0.65. Patient is not hypoxic in the ER. I do not think he has a pulmonary emboli and I do not think a CTA is indicated. A CT of the brain is obtained given this dizziness for the past few days to make sure there is no central process. There is findings consistent with old bilateral cerebral infarcts but no acute process. Given that the dizziness been going on for couple days and there are no CT brain findings I do not think further neurologic work-up is indicated at this time. The exact cause of his symptoms is not clear however I do not think patient requires admission for prolonged monitoring. Patient's pacemaker was interrogated and no acute events were found. Patient be discharged home to follow-up with his e commerce architect. He states he has an appointment next week. He is counseled to call the office tomorrow to see if they would like to do any further testing before his visit or if they want to see him sooner. Patient verbalized agreement understanding with this plan. Patient discharged home in stable condition. Lab Data Attestation: I reviewed the patient's lab results. Labs: Laboratory Results - last 24 hr 03/09/22 03/09/22 03/09/22 15:43 15:43 15:43 WBC 8.8 RBC 4.14 L Hgb 14.5 Hct 39.2 L MCV 94.7 H MCH 35.0 H MCHC 37.0 H RDW Std Deviation 42.4 RDW Coeff of Kvng 12.2 Plt Count 233 MPV 10.5 Immature Gran % (Auto) 0.700 Neut % (Auto) 59.6 Lymph % (Auto) 26.9 [place] % (Auto) 8.1 Eos % (Auto) 3.8 Baso % (Auto) 0.9 Absolute Neuts (auto) 5.3 Absolute Lymphs (auto) 2.37 Nucleated RBC % 0 D-Dimer Quant (PE/DVT) 0.65 H* Sodium 135 L Potassium 4.2 Chloride 105 Carbon Dioxide 25.0 Anion Gap 5 BUN 29 H Creatinine 1.27 Estim Creat Clear Calc 55.09 Est GFR (MDRD) Af Amer 72 Est GFR (MDRD) Non-Af 59 L BUN/Creatinine Ratio 22.8 H Glucose 144 H Calcium 9.8 Troponin I High Sens 9 B-Natriuretic Peptide 03/09/22 03/09/22 15:43 18:07 WBC RBC Hgb Hct MCV MCH MCHC RDW Std Deviation RDW Coeff of Kvng Plt Count MPV Immature Gran % (Auto) Neut % (Auto) Lymph % (Auto) [place] % (Auto) Eos % (Auto) Baso % (Auto) Absolute Neuts (auto) Absolute Lymphs (auto) Nucleated RBC % D-Dimer Quant (PE/DVT) Sodium Potassium Chloride Carbon Dioxide Anion Gap BUN Creatinine Estim Creat Clear Calc Est GFR (MDRD) Af Amer Est GFR (MDRD) Non-Af BUN/Creatinine Ratio Glucose Calcium Troponin I High Sens 11 B-Natriuretic Peptide 53.3 Radiography Chest X-Ray - ED: 1 View, Read by ED Physician, Read by Radiologist and No Acute Disease Diagnostic Testing: Clinical Impression(s) from Imaging Studies Brain CT 03/09/22 17:09 IMPRESSION: 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 No acute abnormal intracranial finding. Electronically Signed: Brayan Nuñez MD at 18:19 EST , Chest X-Ray 03/09/22 17:30 IMPRESSION: No radiographic evidence of acute cardiopulmonary disease. Electronically Signed: Brayan Nuñez MD at 17:54 EST , Rhythm Strip Rhythm Strip: paced Rate: 64 Ectopy: None EKG Initial EKG: Attestation: I personally reviewed and interpreted this EKG as follows: Interpretation: Paced Comments: Atrial sensed ventricular paced rhythm with prolonged AV conduction at a rate of 64 bpm Left axis deviation Normal ST segments Discharge Plan Triage Chief Complaint: Dizziness ED Provider: Kathleen Dowd Dx/Rx/DC Orders Clinical Impression: [place] (dyspnea on exertion), History of permanent cardiac pacemaker placement, Dizziness Prescriptions: No Action Lactobacillus acidophilus 1.5 mg (250 million cell) capsule 2,000 mmu cells PO BID prostegenix 1 cap PO DAILY bee pollen 550 mg capsule 550 mg PO DAILY ibuprofen 600 mg tablet 600 mg PO ONCE Fish Oil 900-1,400 mg capsule,delayed release(DR/EC) 2 cap PO BID metformin 500 mg tablet extended release 24 hr 500 mg PO DAILY valacyclovir [Valtrex] 500 mg tablet 1,000 mg PO BID PRN (Reason: herpes) tadalafil [Cialis] 20 mg tablet 20 mg PO DAILY PRN (Reason: Erectile Dysfunction) Rx Instructions: administer approximately 30min before sexual activity; do not use more than 1 dose per 24hrs amoxicillin 500 mg tablet 2,000 mg PO ONCE PRN (Reason: Mitral valve repair) Qty: 8 2RF Rx Instructions: Take 4 tablets 30-60 minutes prior to dental procedure bbrsorns-wvb-QK-lycopen-lutein 1 EACH tablet 1 ea PO QHS Label Comments: supplement aspirin 81 mg tablet,chewable 81 mg PO DAILY Label Comments: heart health famotidine 40 mg tablet 40 mg PO DAILY Qty: 90 3RF atorvastatin 80 mg tablet 80 mg PO QHS Qty: 90 3RF lisinopril 20 mg tablet 20 mg PO BID Qty: 180 3RF hydrochlorothiazide 25 mg tablet 25 mg PO DAILY Qty: 90 3RF metoprolol tartrate 25 mg tablet 25 mg PO BID Qty: 180 3RF Primary Care Provider: Compa Ramos Referrals: Compa Ramos MD [Primary Care Provider] - Activity Restrictions/Additional Instructions: Your work-up is largely normal today. The exact cause of your symptoms is not clear however I think it safe for you to go home. Return if you have any progression or worsening of your symptoms. Please call your e commerce architect tomorrow in case they would like to see you sooner of have further recommendations before your appointment next week. Disposition Disposition: Home, Self Care
--- NOTE | 2022-03-09 18:11 | EKG12_ITS ---
Test Reason : DYSRHYTHMIA Blood Pressure : / mmHG Vent. Rate : 064 BPM Atrial Rate : 064 BPM P-R Int : 220 ms QRS Dur : 184 ms QT Int : 472 ms P-R-T Axes : 046 -65 071 degrees QTc Int : 486 ms Atrial-sensed ventricular-paced rhythm with prolonged AV conduction Abnormal ECG Confirmed by CLARITA GOFF, LIBRADO ([id number]), television news video editor JAYESH QUEEN ([id number]) on 03/13/2022 10:34:49 AM Referred By: JOEL Confirmed By:LIBRADO OTTO MD
[2022-03-09 18:54] LABS: Troponin-I HS 11 pg/mL (3.0-78.0)
[2022-03-09 19:19] LABS: Reflex Troponin-HS? (from REC) Y
[2022-03-09 20:00] VITALS: BP 121/78; RESP 16; O2SAT 98
== END 2022-03-09 20:26 | disposition home or self-care (01) ==
PROVIDERS: Emergency Provider Emergency Medicine; PCP Family Medicine; Visit Provider Emergency Medicine
DX: R42 Dizziness and giddiness (principal); I44.2 Atrioventricular block, complete; E11.9 Type 2 diabetes mellitus without complications; R06.02 Shortness of breath; H53.8 Other visual disturbances; E78.5 Hyperlipidemia, unspecified; I10 Essential (primary) hypertension; R11.2 Nausea with vomiting, unspecified; I25.10 Atherosclerotic heart disease of native coronary artery without angina pectoris; Z95.0 Presence of cardiac pacemaker
CPT/HCPCS: 70450; 71045; 80048; 83880; 84484; 85025; 85379; 87428; 93005; 99285

== ENCOUNTER 2022-03-24 06:39 | Day surgery (SDC) | payer MEDICARE, SELFPAY ==
[2022-03-23 07:59] VITALS: BMI 32.3
--- NOTE | 2022-03-24 09:10 | CL.D_ITS ---
Patient Name: LEONA PASCUAL Study Date: 03/24/2022 Performing: Mark Karimi MD Ht: 70 inches 177.8 cm : 1950 Wt: 225 lbs 102.06 kg Age: 71 Gender: male BSA: 2.19 PROCEDURE(S) PERFORMED [id number])LHC/COR/LV/CABG CLINICAL PROFILE AND INDICATIONS Indications: Suspected CAD Heart Failure: None Stress/Imaging Stress/Image Study Performed: No CAD Presentations: Other: Shortness of breath CONCLUSIONS Nonobstructive coronary arteries. Preserved left ventricular systolic function. Intact mitral valve. No aortic valve gradient. RECOMMENDATIONS Medical therapy DESCRIPTION OF PROCEDURE The patient arrived to the procedure lab. The risks and benefits of the procedure as well as a full description of our services here and current unavailability of surgical backup were fully explained to the patient and/or their significant other prior to the catheterization. The Timeout was completed, verifying the correct patient and procedure. The patient's procedural site was prepped and draped in the usual fashion. Local anesthetic was given subcutaneously to left radial region with Lidocaine 2%. Using a modified Seldinger technique, arterial access was obtained via the left radial artery, a 6Fr sheath was inserted. Left internal mammary artery graft to the LAD selective angiography was performed in multiple views using a 5 Fr. IM catheter. Left Coronary Artery selective angiography was performed in multiple views using a 5 Fr. JL4 catheter. Right Coronary Artery selective angiography was then performed in multiple views using a 5 Fr. 3DRC (Jonnie) catheter. Left Ventriculography was performed in ROWAN projection using a 5 Fr. Pigtail catheter. LV to AO pullback pressures were then recorded.The arterial sheath was pulled and a TR Band was applied for hemostasis. 9cc of air CORONARY ANGIOGRAPHY DOMINANCE: Right Dominant LEFT HEART ASSESSMENT Left Ventricular Ejection Fraction: by LV Gram 60 % Normal LV wall motion Normal left ventricular end-diastolic pressure LEFT MAIN: Angiographically normal LEFT ANTERIOR DESCENDING ARTERY: MID LAD: Mid segment high-grade stenosis noted. CIRCUMFLEX ARTERY: Mild luminal irregularities RIGHT CORONARY ARTERY: Mild luminal irregularities less than 30% GRAFTS: GOODMAN graft to the Mid LAD is patent VALVE FINDINGS: Repaired mitral valve appears to be intact with no regurgitation COMPLICATIONS No Complications PROCEDURE MEDICATIONS Fentanyl 50 mcg IV Versed 1 mg IV Oxygen: 2 L/min via nasal cannula Heparin given IA 03/24/2022 08:40:27 Verapamil 2.5mg, Ntg 100mcgs, 3000 units of Heparin given IA 03/24/2022 08:40:27 SUMMARY OF HEMODYNAMIC DATA Time AIR REST ECG 07:12:07 AO 113/70 (91) SA 08:43:24 LV 107/9, 19 08:54:33 LV 114/19, 29 08:54:40 LV 101/4, 11 08:56:37 LV 110/4, 13 08:56:53 LVp 118/8, 15 08:56:59 AOp 130/64 (92) 08:57:04 09:08:54 Signed By Mark Karimi MD On 03/24/2022 09:10:13 Mark Karimi MD
== END 2022-03-24 11:15 | disposition home or self-care (01) ==
LOC: CLSP 06:41
PROVIDERS: PCP Family Medicine; Referring Provider Internal Medicine Cardiovascular Disease; Visit Provider Internal Medicine Cardiovascular Disease
DX: I25.10 Atherosclerotic heart disease of native coronary artery without angina pectoris (principal); I71.40 Abdominal aortic aneurysm, without rupture, unspecified; E11.9 Type 2 diabetes mellitus without complications; I10 Essential (primary) hypertension; Z79.82 Long term (current) use of aspirin; Z79.84 Long term (current) use of oral hypoglycemic drugs; Z79.899 Other long term (current) drug therapy; Z95.1 Presence of aortocoronary bypass graft; Z95.0 Presence of cardiac pacemaker; E66.9 Obesity, unspecified; Z86.73 Personal history of transient ischemic attack (TIA), and cerebral infarction without residual deficits
CPT/HCPCS: 93458; 99152; 99153; J7040; Q9967; C1769; C1894

== ENCOUNTER 2022-05-24 18:25 | Emergency (ER) | payer MEDICARE, SELFPAY ==
[2022-05-24] VITALS (8 sets, daily range): BP systolic 107–147; BP diastolic 73–90; PULSE 60–85; RESP 18–25; TEMP 35.7–36.4; O2SAT 95–97; BMI 31.9
[2022-05-24] MEDS: Aspirin 81 MG TAB.CHEW 324 MG PO (19:44)
--- NOTE | 2022-05-24 19:47 | CT_ITS ---
INDICATION: vertigo, numbness EXAMINATION: CT BRAIN WITH CONTRAST TECHNIQUE: Noncontrast axial images were obtained of the brain. Subsequently, routine carotid CT angiogram protocol was performed without and with IV contrast. In addition, images were obtained of the [place]. NASCET criteria using the distal ICAs for comparison were used for evaluation of stenoses. 3D reconstructions were reviewed. A radiation dose optimization technique was used for this scan. IV Contrast dosage and agent: 100 mL of Isovue-370. COMPARISON: CT head from March 09, 2022. FINDINGS: --CT BRAIN: BRAIN PARENCHYMA: No intra- or extra-axial hemorrhage. No evidence of acute infarct. No intracranial mass or mass effect. Unchanged, right and left frontal lobe peripheral areas of encephalomalacia roughly 3 cm in maximum dimension. There is preservation of the clarke/white matter interface. Posterior fossa structures are unremarkable. CSF SPACES: Appropriate for age. No hydrocephalus. Basal cisterns are patent. CALVARIUM, SKULL BASE, PARANASAL SINUSES AND MASTOID AIR CELLS: Right frontoethmoidal recess is opacified. No discrete lytic or blastic abnormalities. ASPECTS Score for Acute Strokes: 10 --CTA NECK: AORTIC ARCH AND BRANCHES: Average anatomy two-vessel bovine arch. Origin of the right brachiocephalic artery shows fusiform dilation measuring 16 mm in diameter. Cyst appears to be extension of mild fusiform dilation thoracic aorta at the level of the brachiocephalic artery, measuring 2.9 cm. RIGHT CCA: No occlusion, significant stenosis or dissection. RIGHT ICA: No occlusion, significant stenosis or dissection. Moderate intimal calcifications carotid bulb. LEFT CCA: No occlusion, significant stenosis or dissection. LEFT ICA: No occlusion, significant stenosis or dissection. Moderate intimal calcifications of the carotid bulb. RIGHT VERTEBRAL ARTERY: Diminutive vessel with dominant left vertebral artery. No focal stenosis or irregular luminal contour. LEFT VERTEBRAL ARTERY: No occlusion, significant stenosis or dissection. NECK SOFT TISSUES: Unremarkable. --CTA HEAD: --Anterior circulation: ICAs: No occlusion or stenosis. No dissection. ACAs: No significant stenosis at the intracranial/visualized segments. Diminutive right A1 segment with smooth, minimal contour; variant anatomy. Left A1 segment is normal in appearance. Bilateral internal carotid arteries are normal in appearance. ACOM: Present. MCAs: No significant stenosis at the visualized segments. --Posterior circulation: oracle dba: Both posterior cerebral arteries originate from the distal bilateral internal carotid arteries. BASILAR ARTERY: No significant stenosis. VERTEBRAL ARTERIES: Diminutive right V4 segment compared to the left likely representing normal variant anatomy; dominant left vertebral artery. No evidence of intracranial aneurysm or vascular malformation. Advanced degenerative changes cervical spine at C5-6 and C6-7 with uncovertebral joint facet joint arthropathy resulting in neural foraminal narrowing. There is also central spinal canal stenosis, at least mild, at C6-7. CT/CTA Head AND Neck W/ Contrast IMPRESSION: Unchanged right and left frontal areas of encephalomalacia suggesting prior trauma and/or infarct. No high-grade stenosis or occlusion cervical or intracranial vessels. Moderate atherosclerosis bilateral carotid bulbs with much less than 25% luminal narrowing. Mild fusiform dilation of the thoracic aortic arch and the origin of the right dual origin brachiocephalic and left common carotid arteries (bovine variant anatomy arch). Variant anatomy with diminutive right vertebral artery and right A1 segment of the anterior cerebral artery. Both posterior cerebral arteries originate from the anterior circulation. Advanced degenerative changes spine as above. Opacification right frontoethmoidal recess. Electronically Signed: Lopez Lara DO at 22:42 EDT ,
[2022-05-24 19:55] LABS: Absolute Lymphocyte Count 2.26 X10^3/uL (0.83-4.51); Basophil# 0.06 X10^3/uL; Basophil% 0.6 % (0-1); Eosinophil# 0.15 X10^3/uL; Eosinophils% 1.5 % (0-5); Hematocrit 39.1 % (40-54); Hemoglobin 13.8 g/dL (13.0-16.5); Lymphocyte # 2.26 X10^3/ul (0.83-4.51); Lymphocyte % 21.9 % (19-41); Mean Corp Hgb Conc 35.3 g/dL (32-36); Mean Corpuscular Hgb 34.2 pg (27.0-32.0); Mean Platelet Vol. 9.5 fl (6.2-12.0); Monocyte% 7.8 % (0-10); NRBC Flagged by Analyzer 0 % (0-5); Neutrophil # 6.95 X10^3/uL (2.7-7.7); Neutrophil % 67.3 % (47-70); Platelet Count 236 K/mm3 (150-450); RBC Distribution Width CV 12.3 % (11.6-14.6); RBC Distribution Width SD 43.7 fl (35.1-43.9); Red Blood Count 4.03 M/mm3 (4.6-6.2); White Blood Count 10.3 K/mm3 (4.4-11.0)
[2022-05-24 20:04] LABS: Erythrocyte Sedimentation Rate 8 mm/hr (0-20)
[2022-05-24 20:10] LABS: BNP,B-Type NATRIURETIC PEPTIDE 29.8 pg/mL (0-100)
[2022-05-24 20:15] LABS: Anion Gap 8 (5-15); BUN 35 mg/dL (7-18); BUN/Creat Ratio 30.2 RATIO (10-20); CRP < 2.90 mg/L (0.0-3.0); Calcium,Total 9.8 mg/dL (8.5-10.1); Chloride 102 mmol/L (98-107); Creatinine, Serum 1.16 mg/dL (0.70-1.30); EST Glomerular Filtration Rate 66 mL/min (>60); Est Glom Filt Rate - Afr Amer 80 mL/min (>60); Estimated Creatinine Clearance 60.31 ml/min; Glucose 190 mg/dL (74-106); Potassium 3.9 mmol/L (3.5-5.1); Sodium Level 133 mmol/L (136-145); Troponin-I HS (w/2H Reflex) 9 pg/mL (3.0-78.0)
--- NOTE | 2022-05-24 20:40 | RAD_ITS ---
INDICATION: chest pain EXAMINATION/TECHNIQUE: X-RAY - XR Chest 2 Views COMPARISON: March 09, 2022 chest x-ray and November 08, 2021 chest x-ray FINDINGS: LINES/DEVICES: Dual-lead pacing device left chest with leads projecting over the right atrium and right ventricle. Intact sternotomy wires are present. Extraneous overlying heart monitoring wires are present. LUNGS: Asymmetric elevation right hemidiaphragm with overlying thin linear opacity unchanged dating back to at least November 08, 2021 likely representing atelectasis and/or scarring. Lungs are otherwise clear without reticulations, consolidation or evidence of cystic lung disease. No nodule or pleural effusion. No pneumothorax. Moderate motion lateral view. No abnormality within limits of the exam. MEDIASTINUM AND CARDIOVASCULAR STRUCTURES: Normal size and contour of the cardiomediastinal silhouette. No evidence of pulmonary vascular congestion. Aortic arch intimal calcifications. BONES AND SOFT TISSUES: No fracture or focal osseous lesion. Mild lateral curvature thoracic spine, convex right, unchanged. RAD/Chest PA and Lateral IMPRESSION: 1. No evidence of acute cardiopulmonary disease. 2. Chronic asymmetric elevation right hemidiaphragm with overlying atelectasis and/or scarring is unchanged dating back to at least October 2021. Electronically Signed: Lopez Lara DO at 21:20 EDT ,
[2022-05-24] MEDS: Meclizine HCl 25 MG Tablet PO (20:48)
[2022-05-24 21:50] LABS: Reflex Troponin-HS? (from REC) Y
[2022-05-24 22:22] LABS: Troponin-I HS 9 pg/mL (3.0-78.0)
--- NOTE | 2022-05-24 23:51 | EX.ED.DYSGE1 ---
HPI History of Present Illness Chief Complaint: Shortness of Breath Informant: patient and spouse/S.O. Narrative Narrative: Patient is a 71-year-old male with history of abdominal aortic aneurysm, diabetes, coronary artery disease status post CABG, complete heart block status post pacemaker (Chang in 11/07/2021) and these recurrent episodes of dizziness, tinnitus and shortness of breath. Patient states he had a particularly bad episode tonight when the shower. He felt very dizzy and felt like he could not get his balance. He was trying to text but did not think he can get his words out. He felt really short of breath when this was happening. I came to the ER for further evaluation. Patient notes he is currently on a steroid taper by Dr. Howe, ENT for the ringing in his ears. He states initially was helping but now that it is getting worse again. Does feel that he has some numbness/tingling in his right hand and left ear. No other complaints at this time. [facility] Medical History Abdominal aortic aneurysm Abnormal LFTs Arthritis Atherosclerotic heart disease of [place] coronary artery without angina pectoris C. difficile diarrhea Complete heart block Essential (primary) hypertension Gall stones Gallbladder polyp Gallstone pancreatitis Hepatic steatosis Hyperlipidemia Non-rheumatic mitral regurgitation Obesity Sliding hiatal hernia TIA (transient ischemic attack) Type 2 diabetes mellitus Home Medications hjugscur-leu-sisqv acid 0.4 mg-lycopene 300 mcg-lutein 250 mcg tablet 1 ea PO QHS multivitamin 10/11/13 [History Last Taken 04/27/17] Lactobacillus acidophilus 1.5 mg (250 million cell) capsule 2,000 mmu cells PO BID 11/29/17 [History Last Taken Unknown] aspirin 81 mg chewable tablet 81 mg PO DAILY heart health 05/23/19 [History Last Taken 03/24/22] bee pollen 550 mg capsule 550 mg PO DAILY 05/23/19 [History Last Taken Unknown] prostegenix 1 cap PO DAILY 05/23/19 [History Last Taken Unknown] famotidine 40 mg tablet 40 mg PO DAILY #90 tabs 03/29/20 [Rx Last Taken Unknown] metformin 500 mg tablet,extended release 24 hr 500 mg PO DAILY 10/08/20 [History Last Taken 03/23/22] valacyclovir 500 mg tablet (Valtrex) 1,000 mg PO BID PRN herpes 04/08/21 [History Last Taken Unknown] atorvastatin 80 mg tablet 80 mg PO QHS #90 tabs 09/29/21 [Rx Last Taken Unknown] ibuprofen 600 mg tablet 600 mg PO ONCE 10/07/21 [History Last Taken Unknown] omega 7-wkz-siz-fish oil 900 mg-1,400 mg capsule,delayed release (Fish Oil) 2 cap PO BID 10/07/21 [History Last Taken Unknown] tadalafil 20 mg tablet (Cialis) 20 mg PO DAILY PRN Erectile Dysfunction 10/07/21 [History Last Taken Unknown] lisinopril 20 mg tablet 20 mg PO BID #180 tabs 11/21/21 [Rx Last Taken 03/24/22] hydrochlorothiazide 25 mg tablet 25 mg PO DAILY #90 tabs 12/20/21 [Rx Last Taken Unknown] metoprolol tartrate 25 mg tablet 25 mg PO BID #180 tabs 02/10/22 [Rx Last Taken 03/24/22] amoxicillin 500 mg tablet 2,000 mg PO ONCE PRN Mitral valve repair #8 tabs 05/22/22 [Rx Last Taken Unknown] meclizine 25 mg tablet 25 mg PO 4X/DAY PRN PRN Dizziness #20 tabs 05/24/22 [Rx Last Taken Unknown] Allergy/AdvReac Type Severity Reaction Status Date / Time fenofibrate Allergy Unknown Verified 05/24/22 18:26 naproxen sodium [From Aleve] AdvReac Other Verified 05/24/22 18:26 Family History Mother Diabetes Father Heart disease Surgical History H/O coronary artery bypass surgery (10/25/17) H/O repair of rotator cuff H/O shoulder surgery History of hernia repair History of left knee surgery History of mitral valve repair (10/25/17) History of permanent cardiac pacemaker placement (11/07/21) Hx laparoscopic cholecystectomy Status post total replacement of left hip Social History Smoking Status: Never smoker alcohol intake: never substance use type: does not use caffeine: Yes Type: coffee Number of servings: 3 what type of physical activity do you participate in: none seatbelt use: always do you feel safe at home: Yes ROS ROS ED Constitutional Constitutional ED: Denies chills or fever(s) Eyes Eyes: Denies blurry vision, change in vision or diplopia ENT ENT ED: Reports ear pain left and other Details: tinnitus, hearing changes ; Denies rhinorrhea or sore throat Cardiovascular Cardiovascular: Denies chest pain Respiratory/Chest Respiratory/Chest: Reports dyspnea; Denies cough Gastrointestinal Gastrointestinal: Denies abdominal pain, nausea or vomiting Genitourinary Genitourinary ED: Denies dysuria Musculoskeletal Musculoskeletal: Denies arthralgias or myalgias Integumentary Denies rash Neurologic Neurologic: Reports paresthesias; Denies headache(s) or weakness Psychiatric Psychiatric: Denies anxiety Hematologic/Lymphatic Hematologic/Lymphatic: Denies easy bleeding EXAM Physical Exam Const Vital Signs: 05/24/22 18:26 05/24/22 19:35 05/24/22 20:00 Temperature 96.2 F L Temperature Source Temporal Pulse Rate 65 63 Respiratory Rate 18 22 H Blood Pressure 146/90 H 147/86 H Blood Pressure Mean 108 106 Pulse Ox 97 96 Oxygen Delivery Method Room Air Room Air Room Air 05/24/22 21:01 05/24/22 21:16 05/24/22 22:00 Temperature Temperature Source Pulse Rate 63 60 70 Respiratory Rate 23 H 24 H 22 H Blood Pressure 118/75 125/83 H Blood Pressure Mean 90 96 Pulse Ox 96 96 96 Oxygen Delivery Method 05/24/22 22:16 05/24/22 23:01 05/24/22 23:34 Temperature 97.6 F L Temperature Source Pulse Rate 62 60 85 Respiratory Rate 23 H 22 H 25 H Blood Pressure 119/76 107/73 Blood Pressure Mean 89 85 Pulse Ox 96 95 97 Oxygen Delivery Method Positive well nourished and well developed General Appearance ED: well developed and NAD HEENT Reports TM's clear and moist mucous membranes Tympanic Membrane ED: Yes TM's clear Eyes PERRL and EOMs intact bilaterally Eyes Narrative: Mild horizontal fatiguing nystagmus both eyes with rapid left gaze. No vertical or rotatory nystagmus present. Neck supple and no JVD Chest Wall inspection of chest normal and palpation of chest normal Resp normal respiratory effort and clear to auscultation bilaterally Cardio regular rate, regular rhythm and no murmurs GI normal to inspection, nondistended, normoactive bowel sounds and non-tender Extremity normal to inspection General Extremety ED: Negative for edema or tenderness General Extremity: Negative for edema Neuro oriented x3, CN's II-XII intact bilaterally and no sensory deficits noted Neuro Narrative: NIH =0. Patient reports minor subjective paresthesia to dorsum or right hand and anterior to left ear. Sensation is still intact to light touch. Sensorium / Orientation: alert Motor Exam: strength 5/5 throughout Psych mental status grossly normal Skin no rashes or lesions noted and no wounds MDM MDM MDM Narrative Medical decision making narrative: Patient is evaluated for an episode of sudden onset dizziness and then shortness of breath. Patient is describing really sounds more like vertigo. He has normal iwpjac-il-hdyg, jzhd-oo-mylt and no truncal ataxia. He does have some mild vertical nystagmus on exam. He has been dealing with some ongoing issues of tinnitus and hearing changes which he follows with ENT for. Denies any family history of M?ni?re's disease. He has had a recent thorough cardiac evaluation for episodes of shortness of breath including a cardiac catheterization performed by Dr. Karimi on On 03/24/22 which was largely normal. He has a pacemaker in place low suspicion for arrhythmia with this story. Given his shortness of breath cardiac work-up is obtained including a delta troponin and EKG which does not show any acute ischemic changes. In addition CT of the brain as well as CT of the head and neck is checked out to look for any signs of critical stenosis, intracranial process or acute stroke. Patient does not have any acute process or significant stenosis. He is given a dose of meclizine with improvement of his symptoms. Discussed with the hospitalist as I cannot definitively rule out central vertigo however we also discussed how the patient has a pacemaker. I did call MRI to see if his pacemaker was MRI compatible however I was told that they cannot determine this at this time as it is too late in the day. Patient is offered admission for further evaluation of this in the morning and to see if he can obtain an inpatient MRI however he states he is feeling better would like to go home. Patient is already on statin therapy for secondary stroke prevention. Shared decision making made and patient elected to go home with outpatient follow-up. I did contact the patient's primary care physician to help facilitate closer outpatient follow-up. Patient ambulates in the ER and has a very steady gait. He does not have any hypoxia in the emergency room. He does not have any acute cardiopulmonary process on his chest x-rays interpreted myself as well as radiology. No significant electrolyte abnormalities to explain his symptoms. No meningeal signs. He does not have any significant tenderness over the christian or significant headaches. Did consider temporal arteritis however his CRP is normal and have a lower suspicion for that. He is currently asymptomatic. Will be discharged with a short course of meclizine. Has follow-up appointment next week with ENT, Dr. Chaudhary. Is given return precautions. Discharged home in stable and improved condition. Lab Data Attestation: I reviewed the patient's lab results. Labs: Laboratory Results - last 24 hr 05/24/22 05/24/22 05/24/22 19:45 19:45 19:45 WBC 10.3 RBC 4.03 L Hgb 13.8 Hct 39.1 L MCV 97.0 H MCH 34.2 H MCHC 35.3 RDW Std Deviation 43.7 RDW Coeff of Kvng 12.3 Plt Count 236 MPV 9.5 Immature Gran % (Auto) 0.900 Neut % (Auto) 67.3 Lymph % (Auto) 21.9 [place] % (Auto) 7.8 Eos % (Auto) 1.5 Baso % (Auto) 0.6 Absolute Neuts (auto) 7.0 Absolute Lymphs (auto) 2.26 Nucleated RBC % 0 ESR 8 Sodium 133 L Potassium 3.9 Chloride 102 Carbon Dioxide 23.0 Anion Gap 8 BUN 35 H Creatinine 1.16 Estim Creat Clear Calc 60.31 Est GFR (MDRD) Af Amer 80 Est GFR (MDRD) Non-Af 66 BUN/Creatinine Ratio 30.2 H Glucose 190 H Calcium 9.8 Troponin I High Sens 9 C-React Prot Ext Range < 2.90 B-Natriuretic Peptide 29.8 05/24/22 21:58 WBC RBC Hgb Hct MCV MCH MCHC RDW Std Deviation RDW Coeff of Kvng Plt Count MPV Immature Gran % (Auto) Neut % (Auto) Lymph % (Auto) [place] % (Auto) Eos % (Auto) Baso % (Auto) Absolute Neuts (auto) Absolute Lymphs (auto) Nucleated RBC % ESR Sodium Potassium Chloride Carbon Dioxide Anion Gap BUN Creatinine Estim Creat Clear Calc Est GFR (MDRD) Af Amer Est GFR (MDRD) Non-Af BUN/Creatinine Ratio Glucose Calcium Troponin I High Sens 9 C-React Prot Ext Range B-Natriuretic Peptide Radiography Diagnostic Testing: Clinical Impression(s) from Imaging Studies Head/Neck CTA 05/24/22 19:47 IMPRESSION: Unchanged right and left frontal areas of encephalomalacia suggesting prior trauma and/or infarct. No high-grade stenosis or occlusion cervical or intracranial vessels. Moderate atherosclerosis bilateral carotid bulbs with much less than 25% luminal narrowing. Mild fusiform dilation of the thoracic aortic arch and the origin of the right dual origin brachiocephalic and left common carotid arteries (bovine variant anatomy arch). Variant anatomy with diminutive right vertebral artery and right A1 segment of the anterior cerebral artery. Both posterior cerebral arteries originate from the anterior circulation. Advanced degenerative changes spine as above. Opacification right frontoethmoidal recess. Electronically Signed: Lopez Lara DO at 22:42 EDT , Chest X-Ray 05/24/22 20:40 IMPRESSION: 1. No evidence of acute cardiopulmonary disease. 2. Chronic asymmetric elevation right hemidiaphragm with overlying atelectasis and/or scarring is unchanged dating back to at least October 2021. Electronically Signed: Lopez Lara DO at 21:20 EDT , Rhythm Strip Rhythm Strip: Sinus Rhythm Rate: 65 Ectopy: None EKG Initial EKG: Attestation: I personally reviewed and interpreted this EKG as follows: Comments: Atrial sensed ventricular paced rhythm at a rate of 65 bpm Nonspecific T wave changes consistent with a paced rhythm Management Discussion w/another healthcare provider: PCP (Discussed further outpatient follow-up for outpatient MRI.) Discharge Plan Triage Chief Complaint: Shortness of Breath Other Complaint: Chest Pain Dizziness ED Provider: Kathleen Dowd Dx/Rx/DC Orders Clinical Impression: Vertigo, Dyspnea Instructions: ED Dyspnea, ED Vertigo, Unspecified Prescriptions: New meclizine 25 mg tablet 25 mg PO 4X/DAY PRN PRN (Reason: Dizziness) Qty: 20 0RF No Action Lactobacillus acidophilus 1.5 mg (250 million cell) capsule 2,000 mmu cells PO BID prostegenix 1 cap PO DAILY bee pollen 550 mg capsule 550 mg PO DAILY ibuprofen 600 mg tablet 600 mg PO ONCE Fish Oil 900-1,400 mg capsule,delayed release(DR/EC) 2 cap PO BID metformin 500 mg tablet extended release 24 hr 500 mg PO DAILY valacyclovir [Valtrex] 500 mg tablet 1,000 mg PO BID PRN (Reason: herpes) tadalafil [Cialis] 20 mg tablet 20 mg PO DAILY PRN (Reason: Erectile Dysfunction) Rx Instructions: administer approximately 30min before sexual activity; do not use more than 1 dose per 24hrs tgwnywnc-dgp-RN-lycopen-lutein 1 EACH tablet 1 ea PO QHS Label Comments: supplement aspirin 81 mg tablet,chewable 81 mg PO DAILY Label Comments: heart health famotidine 40 mg tablet 40 mg PO DAILY Qty: 90 3RF atorvastatin 80 mg tablet 80 mg PO QHS Qty: 90 3RF lisinopril 20 mg tablet 20 mg PO BID Qty: 180 3RF hydrochlorothiazide 25 mg tablet 25 mg PO DAILY Qty: 90 3RF metoprolol tartrate 25 mg tablet 25 mg PO BID Qty: 180 3RF amoxicillin 500 mg tablet 2,000 mg PO ONCE PRN (Reason: Mitral valve repair) Qty: 8 2RF Rx Instructions: Take 4 tablets 30-60 minutes prior to dental procedure Primary Care Provider: Compa Ramos Referrals: Compa Ramos MD [Primary Care Provider] - Activity Restrictions/Additional Instructions: Please follow-up with ENT, Dr. Howe as scheduled. Please follow-up with your primary care doctor. I would recommend an outpatient MRI for further evaluation of these episodes. Disposition Disposition: Home, Self Care Discharge Date/Time: 05/25/22 00:00
== END 2022-05-25 | disposition home or self-care (01) ==
PROVIDERS: Emergency Provider Emergency Medicine; PCP Family Medicine; Visit Provider Emergency Medicine
DX: R42 Dizziness and giddiness (principal); E11.9 Type 2 diabetes mellitus without complications; E78.5 Hyperlipidemia, unspecified; I25.10 Atherosclerotic heart disease of native coronary artery without angina pectoris; I10 Essential (primary) hypertension; H93.19 Tinnitus, unspecified ear; R06.02 Shortness of breath; Z95.1 Presence of aortocoronary bypass graft; Z95.0 Presence of cardiac pacemaker; R20.0 Anesthesia of skin; R20.2 Paresthesia of skin
CPT/HCPCS: 70496; 70498; 71046; 80048; 83880; 84484; 85025; 85652; 86140; 93005; 99285; Q9967; A4216

== ENCOUNTER 2022-07-02 14:11 | Observation (INO) | payer MEDICARE, SELFPAY ==
[2022-07-02] VITALS (9 sets, daily range): BP systolic 112–170; BP diastolic 74–100; PULSE 63–79; RESP 16–22; TEMP 36.3–36.8; O2SAT 95–98; BMI 32.9; BMI 32.8
--- NOTE | 2022-07-02 14:27 | EX.ED.DYSGE1 ---
HPI History of Present Illness Chief Complaint: Chest Pain [facility] Medical History Abdominal aortic aneurysm Abnormal LFTs Arthritis Atherosclerotic heart disease of [place] coronary artery without angina pectoris C. difficile diarrhea Complete heart block Essential (primary) hypertension Gall stones Gallbladder polyp Gallstone pancreatitis Hepatic steatosis Hyperlipidemia Non-rheumatic mitral regurgitation Obesity Sliding hiatal hernia TIA (transient ischemic attack) Type 2 diabetes mellitus Home Medications jjwuiols-ytd-xgnoq acid 0.4 mg-lycopene 300 mcg-lutein 250 mcg tablet 1 ea PO QHS multivitamin 10/11/13 [History Last Taken 04/27/17] Lactobacillus acidophilus 1.5 mg (250 million cell) capsule 2,000 mmu cells PO BID 11/29/17 [History Last Taken Unknown] aspirin 81 mg chewable tablet 81 mg PO DAILY heart health 05/23/19 [History Last Taken 03/24/22] bee pollen 550 mg capsule 550 mg PO DAILY 05/23/19 [History Last Taken Unknown] prostegenix 1 cap PO DAILY 05/23/19 [History Last Taken Unknown] famotidine 40 mg tablet 40 mg PO DAILY #90 tabs 03/29/20 [Rx Last Taken Unknown] metformin 500 mg tablet,extended release 24 hr 500 mg PO DAILY 10/08/20 [History Last Taken 03/23/22] valacyclovir 500 mg tablet (Valtrex) 1,000 mg PO BID PRN herpes 04/08/21 [History Last Taken Unknown] atorvastatin 80 mg tablet 80 mg PO QHS #90 tabs 09/29/21 [Rx Last Taken Unknown] omega 5-ogx-ekb-fish oil 900 mg-1,400 mg capsule,delayed release (Fish Oil) 2 cap PO BID 10/07/21 [History Last Taken Unknown] tadalafil 20 mg tablet (Cialis) 20 mg PO DAILY PRN Erectile Dysfunction 10/07/21 [History Last Taken Unknown] lisinopril 20 mg tablet 20 mg PO BID #180 tabs 11/21/21 [Rx Last Taken 03/24/22] hydrochlorothiazide 25 mg tablet 25 mg PO DAILY #90 tabs 12/20/21 [Rx Last Taken Unknown] amoxicillin 500 mg tablet 2,000 mg PO ONCE PRN Mitral valve repair #8 tabs 05/22/22 [Rx Last Taken Unknown] meclizine 25 mg tablet 25 mg PO 4X/DAY PRN PRN Dizziness #20 tabs 05/24/22 [Rx Last Taken Unknown] Allergy/AdvReac Type Severity Reaction Status Date / Time fenofibrate Allergy Unknown Verified 07/02/22 14:16 naproxen sodium [From Aleve] AdvReac Other Verified 07/02/22 14:16 Family History Mother Diabetes Father Heart disease Surgical History H/O coronary artery bypass surgery (10/25/17) H/O repair of rotator cuff H/O shoulder surgery History of hernia repair History of left knee surgery History of mitral valve repair (10/25/17) History of permanent cardiac pacemaker placement (11/07/21) Hx laparoscopic cholecystectomy Status post total replacement of left hip Social History Smoking Status: Never smoker alcohol intake: never substance use type: does not use caffeine: Yes Type: coffee Number of servings: 3 what type of physical activity do you participate in: none seatbelt use: always do you feel safe at home: Yes EXAM Physical Exam Const Vital Signs: 07/02/22 14:12 07/02/22 15:18 07/02/22 15:12 Temperature 97.7 F L Temperature Source Oral Pulse Rate 79 65 Respiratory Rate 16 19 H Blood Pressure 113/86 H 118/74 Blood Pressure Mean 95 88 Pulse Ox 95 97 Oxygen Delivery Method Room Air Room Air Room Air 07/02/22 16:00 07/02/22 17:00 07/02/22 18:17 Temperature 97.7 F L Temperature Source Oral Pulse Rate 66 64 63 Respiratory Rate 20 H 22 H 20 H Blood Pressure 112/79 122/77 H 122/76 H Blood Pressure Mean 90 92 91 Pulse Ox 96 96 95 Oxygen Delivery Method Room Air Room Air Room Air MDM MDM MDM Narrative Medical decision making narrative: HISTORY OF PRESENT ILLNESS: 71-year-old male here for chest tightness. Status post aspirin nitroglycerin by EMS. Patient states approximate 2 hours prior to arrival he developed acute onset of chest pain, lightheadedness. Per the patient's he was clarke and sweaty. He states pain has been constant described as pressure. It is nonradiating. It is exertional. He denies any pleuritic chest pain. They also endorse patient's speech being weak. Denies slurred speech, focal weakness, slurred visual loss, and coordination The patient denies recent surgery in the last 4 weeks or immobilization in the last 3 days, denies previous diagnosis of DVT or PE, hemoptysis, unilateral leg swelling or malignancy with treatment the last 6 months. No estrogen use noted. Patient denies sudden onset of pain, no tearing sensation, no migratory symptoms, no new numbness, weakness or loss of sensation. Patient denies family history or personal history of Marfan syndrome or Lee-Danlos REVIEW OF SYSTEMS: Pertinent positives: Chest pain Pertinent negatives: Syncope, focal weakness, cough, lower extremity edema PHYSICAL EXAM: Nursing triage notes reviewed, Vital signs reviewed Constitutional: please see mdm, dusky appearing, not diaphoretic HENT: MMM Eyes: Pupils equal round and reactive to light, Extraocular muscles intact Neck: No stridor, no JVD, full neck ROM Lungs: Clear to auscultation, No wheezing or rales. No increased work of breathing, no conversational dyspnea, no accessory muscle use, no nasal flaring. No respiratory distress noted Heart: Regular rate and rhythm, No murmurs, No rubs and No gallops, 2+ distal pulses (radial, femoral, posterior tibial) in all extremities Abdomen: Soft, there is no tenderness, rigidity, rebound or guarding, no obvious peritoneal signs, no palpable pulsatile abdominal masses, no auscultated abdominal bruit : No CVAT Extremities: No edema Neuro: Alert and oriented x3, neuro exam at baseline, cranial nerves II through XII are intact. No pain with extraocular muscle movement. There is negative test of skew. Normal speech. 5 of 5 strength in upper and lower extremities in flexion extension. Intact sensation to light touch in upper and lower extremity dermatomes. No truncal or extremity ataxia. No dysdiadochokinesia. Normal gait. 2+ reflexes. No meningeal signs. Negative Babinski. NIH of 0 Skin: No rash or lesions noted MEDICAL DECISION MAKING: Chief Complaint: Chest pain External records reviewed: Last echocardiogram October 2021 shows ejection fraction 55 to 60% MDM Narrative: Patient was hemodynamically stable, afebrile, nontoxic-appearing. Exam without focal neurologic deficits. I considered the following differential diagnosis: ACS, arrhythmia, anemia, acute CVA, electrolyte abnormality I considered pulmonary embolism as a potential diagnosis however the patient lower as well score and as such for low suspicion and clinical gestalt for PE. Patient had no clinical features or physical exam exam findings to suggest aortic dissection. Patient noted speech was different denied slurring's. noted patient's voice was weak. He had NIH of 0 but given concern for change in speech I did obtain a Noncon CT scan. This patient was not a stroke team. He did not qualify for tPA, TNK or emergent thrombectomy given lack of focal deficit, slurred speech and NIH score of 0. I also obtained labs to rule out the above mentioned diagnoses. Initial EKG did not have acute ischemic changes, similar to prior. Labs were remarkable for no evidence of myocardial ischemia, significant anemia or electrolyte abnormalities. There is mild renal sufficiency but no JAJA. Patient's heart score 6 given multiple medical comorbidities, concerning story with pressure-like chest pain that causes diaphoresis and near syncope despite clean cath in March. I offered the patient admission given heart score of 6 (high risk). He accepted my offer. I communicated with hospitalist Dr. Jensen who accepted the patient's case. Factors affecting care: History of a pacemaker, heart block, CAD, status post CABG, hypertension, lipidemia, abdominal aortic aneurysm, type 2 diabetes and obesity Social determinants of health: Never smoker History obtained from others: EMS Shared decision making: I will have a discussion with the patient and or visitors regarding risk/benefits of further testing or admission. They will be made aware of of the risk/benefits inherent in this decision they will be given the opportunity to voice understanding. Consults: Internal Medicine Lab Data Attestation: I reviewed the patient's lab results. Lab results narrative: EKG with atrial paced rhythm, left axis deviation, prolonged QT, no obvious STEMI, no obvious changes from EKG from May 25, 2019 CBC without leukocytosis, severe anemia, no thrombocytopenia. BMP without significant electrolyte abnormalities, anion gap to suggest endorgan hypoperfusion, mild renal insufficiency, Troponin is negative, no evidence of myocardial ischemia, delta troponin negative Labs: Laboratory Results - last 24 hr 07/02/22 07/02/22 07/02/22 14:02 14:02 14:02 WBC 7.3 RBC 3.90 L Hgb 13.8 Hct 38.3 L MCV 98.2 H MCH 35.4 H MCHC 36.0 RDW Std Deviation 44.7 H RDW Coeff of Kvng 12.5 Plt Count 223 MPV 10.3 Immature Gran % (Auto) 0.300 Neut % (Auto) 49.0 Lymph % (Auto) 36.8 Dane % (Auto) 10.3 H Eos % (Auto) 2.9 Baso % (Auto) 0.7 Absolute Neuts (auto) 3.6 Absolute Lymphs (auto) 2.69 Nucleated RBC % 0 ESR 5 PT INR Sodium 138 Potassium 4.3 Chloride 106 Carbon Dioxide 23.0 Anion Gap 9 BUN 35 H Creatinine 1.33 H Estim Creat Clear Calc 52.60 Est GFR (MDRD) Af Amer 68 Est GFR (MDRD) Non-Af 56 L BUN/Creatinine Ratio 26.3 H Glucose 184 H Calcium 10.0 Total Bilirubin Direct Bilirubin AST ALT Alkaline Phosphatase Troponin I High Sens 8 C-React Prot Ext Range Total Protein Albumin Globulin TSH 07/02/22 07/02/22 07/02/22 14:02 16:40 16:40 WBC RBC Hgb Hct MCV MCH MCHC RDW Std Deviation RDW Coeff of Kvng Plt Count MPV Immature Gran % (Auto) Neut % (Auto) Lymph % (Auto) [place]ane % (Auto) Eos % (Auto) Baso % (Auto) Absolute Neuts (auto) Absolute Lymphs (auto) Nucleated RBC % ESR PT 12.9 INR 1.0 Sodium Potassium Chloride Carbon Dioxide Anion Gap BUN Creatinine Estim Creat Clear Calc Est GFR (MDRD) Af Amer Est GFR (MDRD) Non-Af BUN/Creatinine Ratio Glucose Calcium Total Bilirubin 0.50 Direct Bilirubin 0.11 AST 21 ALT 58 Alkaline Phosphatase 60 Troponin I High Sens 11 C-React Prot Ext Range < 2.90 Total Protein 7.3 Albumin 3.9 Globulin 3.4 TSH 0.38 Radiography Chest X-Ray - ED: Read by ED Physician Diagnostic Testing: Clinical Impression(s) from Imaging Studies Brain CT 07/02/22 15:02 IMPRESSION: There are no acute findings. Electronically Signed: Danish Paul MD at 16:02 EDT , Chest X-Ray 07/02/22 15:13 IMPRESSION: There are no acute findings. Electronically Signed: Danish Paul MD at 15:48 EDT Reading Location ID and State: [facility] / [place] , Service support , I have personally reviewed the patient's chest x-ray. Chest x-ray is unremarkable for pulmonary edema, pneumothorax, pneumonia or focal cardiopulmonary abnormality. Discharge Plan Dx/Rx/DC Orders Clinical Impression: Chest pain Disposition Disposition: Acute Care Hospital [facility] Discharge Date/Time: 07/02/22 18:45
--- NOTE | 2022-07-02 14:50 | ED.RN ---
PER DR. GORDON SWANSON STROKE TEAM.
--- NOTE | 2022-07-02 14:59 | EKG12_ITS ---
Test Reason : CP Blood Pressure : / mmHG Vent. Rate : 079 BPM Atrial Rate : 079 BPM P-R Int : 168 ms QRS Dur : 182 ms QT Int : 440 ms P-R-T Axes : 044 -42 088 degrees QTc Int : 504 ms Atrial-sensed ventricular-paced rhythm Abnormal ECG Confirmed by CLARITA GOFF, LIBRADO ([id number]), videotape editor JAYESH QUEEN ([id number]) on 07/04/2022 10:48:23 AM Referred By: WADE Confirmed By:LIBRADO OTTO MD
--- NOTE | 2022-07-02 15:02 | CT_ITS ---
STUDY: CT BRAIN WITHOUT CONTRAST REASON FOR EXAM: Male, 71 years old. dizziness Individualized dose optimization techniques were used for this CT. TECHNIQUE: Transaxial CT imaging of the brain was performed without administration of intravenous contrast material. COMPARISON: 03.09.22 FINDINGS: There are calcifications around the carotid artery. These are noted in the cavernous carotid arteries. Normal calvarium. Normal soft tissues. High left frontal lobe encephalomalacia. Wedge-shaped encephalomalacia near the right frontal operculum. Tiny posterior right frontal lobe encephalomalacia. There is mild cerebral atrophy with widening of the extra-axial spaces and ventricular dilatation. Normal white matter tracts of the cerebral hemispheres. Normal basal ganglia and thalami. Normal brainstem. There is mild cerebellar atrophy. There is no intracranial hemorrhage. There are no findings of an acute ischemic infarction. Normal visualized paranasal sinuses. ASPECTS Score for Acute Strokes: 11/28 CT/Brain/Head without Contrast IMPRESSION: There are no acute findings. Electronically Signed: Danish Paul MD at 16:02 EDT ,
[2022-07-02 15:09] LABS: Absolute Lymphocyte Count 2.69 X10^3/uL (0.83-4.51); Absolute Neutrophil Count 3.6 X10^3/uL (2.0-7.7); Basophil# 0.05 X10^3/uL; Basophil% 0.7 % (0-1); Eosinophil# 0.21 X10^3/uL; Eosinophils% 2.9 % (0-5); Hematocrit 38.3 % (40-54); Hemoglobin 13.8 g/dL (13.0-16.5); Lymphocyte # 2.69 X10^3/ul (0.83-4.51); Lymphocyte % 36.8 % (19-41); Mean Corpuscular Hgb 35.4 pg (27.0-32.0); Mean Corpuscular Volume 98.2 fL (80-94); Mean Platelet Vol. 10.3 fl (6.2-12.0); Monocyte# 0.75 X10^3/uL; Monocyte% 10.3 % (0-10); NRBC Flagged by Analyzer 0 % (0-5); Neutrophil # 3.59 X10^3/uL (2.7-7.7); Platelet Count 223 K/mm3 (150-450); RBC Distribution Width CV 12.5 % (11.6-14.6); RBC Distribution Width SD 44.7 fl (35.1-43.9); White Blood Count 7.3 K/mm3 (4.4-11.0)
--- NOTE | 2022-07-02 15:13 | RAD_ITS ---
STUDY: XR Chest 1 View 07/02/2022 3:14 PM REASON FOR EXAM: Male, 71 years old. CHEST PAIN chest pain COMPARISON: 05/24/2022 TECHNIQUE: XR Chest 1 View FINDINGS: There is no demonstrated pleural abnormality. There is a left sided pacemaker batterypack. There are multiple median sternotomy wires. There is an elevated right hemidiaphragm. Normal heart size. Normal mediastinum. Normal duran. Prominent appearing increased interstitial lung markings. Normal visualized pulmonary arteries. There is atherosclerotic calcification of the aortic arch with tortuosity. There are diffuse degenerative changes of the visualized thoracic spine. There is degenerative osteoarthritis of the bilateral shoulders. There is no demonstrated abnormality of the visualized soft tissue structures of the upper abdomen. RAD/Chest 1 View (Portable) IMPRESSION: There are no acute findings. Electronically Signed: Danish Paul MD at 15:48 EDT ,
[2022-07-02 15:29] LABS: Anion Gap 9 (5-15); BUN 35 mg/dL (7-18); BUN/Creat Ratio 26.3 RATIO (10-20); Chloride 106 mmol/L (98-107); Creatinine, Serum 1.33 mg/dL (0.70-1.30); EST Glomerular Filtration Rate 56 mL/min (>60); Est Glom Filt Rate - Afr Amer 68 mL/min (>60); Glucose 184 mg/dL (74-106); Potassium 4.3 mmol/L (3.5-5.1); Sodium Level 138 mmol/L (136-145); Troponin-I HS (w/2H Reflex) 8 pg/mL (3.0-78.0)
[2022-07-02 17:04] LABS: Reflex Troponin-HS? (from REC) Y
[2022-07-02 17:37] LABS: Troponin-I HS 11 pg/mL (3.0-78.0)
--- NOTE | 2022-07-02 18:48 | PCM.HP.STD ---
HPI - General General Date of Admission: 07/02/22 Date of Service: 07/02/22 Chief Complaint: Chest pain and dizziness HPI Narrative LEONA PASCUAL, is a 71-year-old male history of complete heart block with permanent pacemaker placement and December 2021, coronary artery disease status post bypass 2018, hypertension, abdominal aortic aneurysm, type 2 diabetes mellitus presented to [facility] 07/02/2022 with chest pain and dizziness for several hours. He had chest pain 2 hours prior to arrival that he reported as he developed sudden onset of the chest pain with lightheadedness and per he was clarke and sweaty. Pain was constant pressure nonradiating the later said that he thought it goes into his neck sometimes. Given aspirin and nitroglycerin in the EMS. EKG in the ED similar to previous. Given elevated heart score hospitalist consulted for chest pain rule out. Noted that he had a clean cardiac cath with no intervention 3 months ago Krystal discussed with patient. When discussing with him he reported that he had substernal crushing chest pain that started when he was sitting down with no exacerbating or relieving factors and he had such severe dizziness he could not stand up and had vomiting as well with headache and right arm numbness. In the ED he also reports when he was feeling like the room was spinning around him he felt like the lytes looked like they were flashing and that he was not seeing things correctly. He reports this has happened several times (aside from the bizarre visual symptoms) but no one has found anything. Currently feeling wiped but the neurologic symptoms and dizziness have resolved. He has no numbness weakness tingling. No further chest pain. Did have some shortness of breath during the episode which lasted for several hours but has since resolved. Has ringing in one of his ears but has been present for years and is unchanged. No problems swallowing. When he is evaluated by the ED doctor he had a quiet voice but no slurred speech, due to his complaints he did have a CT in the ED of his head with no acute changes. Discussed with patient and family at bedside, will bring in for CVA rule out. Not presently having any symptoms so no indication for stroke team, will obtain CTA head and neck however and if positive will need transferred however low suspicion given complete resolution of symptoms. [facility] Medical History Abdominal aortic aneurysm Abnormal LFTs Arthritis Atherosclerotic heart disease of [place] coronary artery without angina pectoris C. difficile diarrhea Complete heart block Essential (primary) hypertension Gall stones Gallbladder polyp Gallstone pancreatitis Hepatic steatosis Hyperlipidemia Non-rheumatic mitral regurgitation Obesity Sliding hiatal hernia TIA (transient ischemic attack) Type 2 diabetes mellitus Home Medications bgprrmhv-okx-prmvi acid 0.4 mg-lycopene 300 mcg-lutein 250 mcg tablet 1 ea PO QHS multivitamin 10/11/13 [History Last Taken 04/27/17] Lactobacillus acidophilus 1.5 mg (250 million cell) capsule 2,000 mmu cells PO BID 11/29/17 [History Last Taken Unknown] aspirin 81 mg chewable tablet 81 mg PO DAILY heart health 05/23/19 [History Last Taken 03/24/22] bee pollen 550 mg capsule 550 mg PO DAILY 05/23/19 [History Last Taken Unknown] prostegenix 1 cap PO DAILY 05/23/19 [History Last Taken Unknown] famotidine 40 mg tablet 40 mg PO DAILY #90 tabs 03/29/20 [Rx Last Taken Unknown] metformin 500 mg tablet,extended release 24 hr 500 mg PO DAILY 10/08/20 [History Last Taken 03/23/22] valacyclovir 500 mg tablet (Valtrex) 1,000 mg PO BID PRN herpes 04/08/21 [History Last Taken Unknown] atorvastatin 80 mg tablet 80 mg PO QHS #90 tabs 09/29/21 [Rx Last Taken Unknown] omega 6-jie-kza-fish oil 900 mg-1,400 mg capsule,delayed release (Fish Oil) 2 cap PO BID 10/07/21 [History Last Taken Unknown] tadalafil 20 mg tablet (Cialis) 20 mg PO DAILY PRN Erectile Dysfunction 10/07/21 [History Last Taken Unknown] lisinopril 20 mg tablet 20 mg PO BID #180 tabs 11/21/21 [Rx Last Taken 03/24/22] hydrochlorothiazide 25 mg tablet 25 mg PO DAILY #90 tabs 12/20/21 [Rx Last Taken Unknown] amoxicillin 500 mg tablet 2,000 mg PO ONCE PRN Mitral valve repair #8 tabs 05/22/22 [Rx Last Taken Unknown] meclizine 25 mg tablet 25 mg PO 4X/DAY PRN PRN Dizziness #20 tabs 05/24/22 [Rx Last Taken Unknown] Allergy/AdvReac Type Severity Reaction Status Date / Time fenofibrate Allergy Unknown Verified 07/02/22 14:16 naproxen sodium [From Aleve] AdvReac Other Verified 07/02/22 14:16 Family History Mother Diabetes Father Heart disease Surgical History H/O coronary artery bypass surgery (10/25/17) H/O repair of rotator cuff H/O shoulder surgery History of hernia repair History of left knee surgery History of mitral valve repair (10/25/17) History of permanent cardiac pacemaker placement (11/07/21) Hx laparoscopic cholecystectomy Status post total replacement of left hip Social History Smoking Status: Never smoker alcohol intake: never substance use type: does not use caffeine: Yes Type: coffee Number of servings: 3 what type of physical activity do you participate in: none seatbelt use: always do you feel safe at home: Yes ROS ROS Narrative General: Denies fever/chills HENT: Headaches for several weeks, denies stuffy nose, denies sore throat EYES: Denies changes in vision Resp: Denies cough, had some shortness of breath during the chest pain episode Cardiac: Substernal chest with no exacerbating or relieving factors GI: Denies abdominal pain, denies changes in bowel, had episode of vomiting when he was feeling dizzy : Denies changes in urination Extremity: Denies swelling MSK: Denies weakness Neuro: Denies any numbness/tingling presently but had numbness and tingling in right arm during episode Heme: Denies any bleeding or bruising Skin: Denies rashes Psychiatric: No complaints voiced Vital Signs Vital Signs Vital Signs: 07/02/22 14:12 07/02/22 15:18 07/02/22 15:12 Temperature 97.7 F L Temperature Source Oral Pulse Rate 79 65 Respiratory Rate 16 19 H Blood Pressure 113/86 H 118/74 Blood Pressure Mean 95 88 Pulse Ox 95 97 Oxygen Delivery Method Room Air Room Air Room Air 07/02/22 16:00 07/02/22 17:00 07/02/22 18:17 Temperature 97.7 F L Temperature Source Oral Pulse Rate 66 64 63 Respiratory Rate 20 H 22 H 20 H Blood Pressure 112/79 122/77 H 122/76 H Blood Pressure Mean 90 92 91 Pulse Ox 96 96 95 Oxygen Delivery Method Room Air Room Air Room Air Weight Weight: 104.1 kg Body Mass Index (BMI) 32.9 Physical Exam Narrative General: Alert, oriented, tired appearing HEENT: Atraumatic, normocephalic Eyes: Anicteric, normal conjunctiva, extraocular movements intact, pupils equal Neck: Supple Respiratory: Clear to auscultation bilaterally, normal respiratory effort Cardiovascular: Regular rate and rhythm GI: Soft, nontender, nondistended Extremities: No edema Musculoskeletal: Strength 5 out of 5 in right upper extremity, 5 out of 5 left upper extremity, 5 out of 5 right lower extremity, 5 out of 5 left lower extremity Neuro: No overt focal neurological deficits, cranial nerves II through XII intact, [id number] without significant difficulty bilaterally Skin: No rashes appreciated Psych: Cooperative Results Lab / Micro Data Result Diagrams: 07/02/22 14:02 07/02/22 14:02 Labs: Laboratory Results - last 24 hr 07/02/22 14:02: WBC 7.3, RBC 3.90 L, Hgb 13.8, Hct 38.3 L, MCV 98.2 H, MCH 35.4 H, MCHC 36.0, RDW Std Deviation 44.7 H, RDW Coeff of Kvng 12.5, Plt Count 223, MPV 10.3, Immature Gran % (Auto) 0.300, Neut % (Auto) 49.0, Lymph % (Auto) 36.8, [place] % (Auto) 10.3 H, Eos % (Auto) 2.9, Baso % (Auto) 0.7, Absolute Neuts (auto) 3.6, Absolute Lymphs (auto) 2.69, Nucleated RBC % 0 07/02/22 14:02: Sodium 138, Potassium 4.3, Chloride 106, Carbon Dioxide 23.0, Anion Gap 9, BUN 35 H, Creatinine 1.33 H, Estim Creat Clear Calc 52.60, Est GFR (MDRD) Af Amer 68, Est GFR (MDRD) Non-Af 56 L, BUN/Creatinine Ratio 26.3 H, Glucose 184 H, Calcium 10.0, Troponin I High Sens 8 07/02/22 16:40: Troponin I High Sens [address] 07/02/22 15:02 IMPRESSION: There are no acute findings. Electronically Signed: Danish Paul MD at 16:02 EDT , Chest X-Ray 07/02/22 15:13 IMPRESSION: There are no acute findings. Electronically Signed: Danish Paul MD at 15:48 EDT , Assessment & Plan Assessment/Plan (1) Neurological symptoms: (2) Chest pain: (3) History of permanent cardiac pacemaker placement: (4) H/O coronary artery bypass surgery: (5) Type 2 diabetes mellitus: PLAN: Plan #Neurological deficits -Had vertigo and right arm weakness for several hours earlier today, symptoms have resolved so no stroke team was called -Admit to tele -CT head in the ED with no acute findings but did note wedge-shaped encephalomalacia near the right frontal operculum and tiny posterior right frontal lobe encephalomalacia with mild cerebral atrophy and mild cerebellar atrophy. -CTA ordered -MRI with and without contrast -Given nature of symptoms with visual symptoms of lytes flashing and the wall appearing to move in the ED we will also order EEG -ESR, CRP -NIH q4hr -asa, statin -Echo w/ bubble study -PT/OT/Speech eval -Hold BP medications to allow for permissive hypertension for 24 hours unless SBP greater than 220 or DBP greater than 120 or until stroke is ruled out #Chest pain/coronary disease status post CABG -Does have elevated heart score and history of CABG -Did have substernal chest pain that was concerning however nonobstructing CAD and no intervention in March with Dr. Karimi -Do not feel stress test is warranted -Given sudden nature of the pain with crushing quality and shortness of breath will obtain CTA of the chest to verify no PE or dissection -Was loaded with aspirin in the ED -EKG atrially paced, no tachycardia -Troponins within normal limits -We will admit to telemetry and also interrogate pacemaker in the event arrhythmia could have been contributing -Additionally getting echo as above #Type 2 diabetes mellitus -Glucose checks and sliding scale insulin -Hold metformin #DVT ppx: Charles Jensen MD Time spent in the patient's overall evaluation,decision-making process, review of diagnostic data, adjustment of management, discussion with other providers, nursing nursing and ancillary staff involved in patient's care documentation, 60 minutes Charges/Coding Visit Charges Inpatient E&M: 21093 Init Hosp L2
--- NOTE | 2022-07-02 19:04 | ECHOCS_ITS ---
Reason For Study: TIA/Stroke Procedure This was a 2D Doppler, Color Flow transthoracic echocardiogram. Contrast injection was performed. Exam performed portable in patient room. Left Ventricle Normal LV size. The left ventricular ejection fraction is 50 %. Stage 1 diastolic dysfunction. There are regional wall motion abnormalities as specified. Mid-anteroseptal : Hypokinetic. Apical wall motion abnormality may reflect pacemaker activation. Inferior [place] : Hypokinetic. Right Ventricle Normal RV size. Normal systolic function. Atria The left atrium is mildly enlarged. Normal right atrium. Tricuspid Valve Normal tricuspid valve. Mild tricuspid valve insufficiency. Pulmonary artery systolic pressure is 39 mmHg. Aortic Valve Trisinus/trileaflet aortic valve. Pulmonic Valve The pulmonic valve is not well visualized. Great Vessels Normal aortic root. The pulmonary artery is normal size. Normal inferior vena cava. Pericardium/Pleural No pericardial effusion. Medication Diluted definity 3ml given slow IV push to enhance endocardial definition. MMode/2D Measurements & Calculations LVIDd: 5.4 cm IVSd: 1.0 cm Ao root diam: 3.6 cm LVIDs: 3.2 cm LVPWd: 0.92 cm RVDd: 3.8 cm FS: 41.1 % LAV(MOD-bp): 58.1 ml LVAd ap4: 30.1 cm2 SV(MOD-sp4): 52.1 ml LAV(MOD-bp) Indexed: 26.9 ml/m2 LVLd ap4: 8.2 cm LAV(MOD-sp2): 39.6 ml EDV(MOD-sp4): 92.1 ml LAV(MOD-sp4): 61.3 ml EDV(sp4-el): 94.5 ml LVAs ap4: 18.8 cm2 LVLs ap4: 7.2 cm ESV(MOD-sp4): 40.1 ml ESV(sp4-el): 41.6 ml EF(MOD-sp4): 56.5 % EF(sp4-el): 56.0 % SV(sp4-el): 52.9 ml LA A4 area: 22.9 cm2 LA dimension(2D): 4.9 cm RA A4 area: 9.7 cm2 Time Measurements MV dec time: 0.46 sec Doppler Measurements & Calculations MV E max josemanuel: 169.8 cm/sec Lat Peak E' Josemanuel: 7.4 cm/sec Med Peak E' Josemanuel: 4.7 cm/sec MV A max josemanuel: 185.7 cm/sec E/E' lat: 23.0 E/E' med: 36.2 MV E/A: 0.91 MV V2 max: 222.1 cm/sec Ao V2 max: 127.1 cm/sec MV max P.8 mmHg MV dec slope: 365.6 cm/sec2 Ao max P.5 mmHg MV V2 mean: 157.3 cm/sec Ao V2 mean: 83.3 cm/sec MV mean P.5 mmHg Ao mean P.3 mmHg MV V2 VTI: 66.4 cm Ao V2 VTI: 25.7 cm LV V1 max: 97.4 cm/sec PA V2 max: 110.4 cm/sec PI end-d josemanuel: 156.6 cm/sec LV V1 max P.8 mmHg TR max josemanuel: 295.1 cm/sec TR max P.8 mmHg ECHO/Echo Complete W/ Contrast Interpretation Summary Normal LV size. The left ventricular ejection fraction is 50 %. Stage 1 diastolic dysfunction. Pulmonary artery systolic pressure is 39 mmHg. Mid-anteroseptal : Hypokinetic Inferior [place] : Hypokinetic Apical wall motion abnormality may reflect pacemaker activation. Contrast injection was performed. Ordering Physician: Yadira Jensen Referring Physician: Compa Ramos Performed By: Marissa Sweet RDCS, RVT
--- NOTE | 2022-07-02 19:04 | CT_ITS ---
We are attempting to reach an attending provider to discuss findings. An addendum with communication details will be sent when the communication is complete. EXAM: CT ANGIOGRAPHY HEAD AND NECK WITH INTRAVENOUS CONTRAST CLINICAL INDICATION: Neuro deficit, acute, stroke suspected SUBSTERNAL CHEST PAIN,DIZZINESS,HEADACHE TECHNIQUE: [place]/head and neck CT angiography protocol performed with intravenous contrast. This CT exam was performed using one or more of the following dose reduction techniques: automated exposure control, adjustment of the mA and/or kV according to patient size, and/or use of iterative reconstruction technique. MIP reconstructed images were created and reviewed. CONTRAST: IV 75mL Isovue-370 RADIATION DOSE: CTDIvol = 21.64 mGy, DLP = 972.31 mGy-cm COMPARISON: No relevant prior studies available. FINDINGS: HEAD: RIGHT ANTERIOR CEREBRAL ARTERY: Unremarkable. No significant stenosis at the visualized segments. Anterior communicating artery is present. No aneurysm. RIGHT MIDDLE CEREBRAL ARTERY: Unremarkable. No significant stenosis at the visualized segments. No aneurysm. RIGHT POSTERIOR CEREBRAL ARTERY: Unremarkable. No occlusion or significant stenosis. No aneurysm. RIGHT INTRACRANIAL INTERNAL CAROTID ARTERY: Unremarkable. No significant stenosis. No dissection or occlusion. RIGHT INTRACRANIAL VERTEBRAL ARTERY: Unremarkable. No significant stenosis. No dissection or occlusion. LEFT ANTERIOR CEREBRAL ARTERY: Unremarkable. No significant stenosis at the visualized segments. No aneurysm. LEFT MIDDLE CEREBRAL ARTERY: Unremarkable. No significant stenosis at the visualized segments. No aneurysm. LEFT POSTERIOR CEREBRAL ARTERY: Unremarkable. No occlusion or significant stenosis. No aneurysm. LEFT INTRACRANIAL INTERNAL CAROTID ARTERY: Unremarkable. No significant stenosis. No dissection or occlusion. LEFT INTRACRANIAL VERTEBRAL ARTERY: Unremarkable. No significant stenosis. No dissection or occlusion. BASILAR ARTERY: Unremarkable. No significant stenosis. No aneurysm. OTHER VASCULATURE: There is mild atherosclerotic plaque formation of the origin of the right internal carotid artery with less than 50% cross sectional diameter stenosis. ALL ABOVE CRITERIA BY NASCET. There is mild atherosclerotic plaque formation of the origin of the left internal carotid artery with less than 50% cross sectional diameter stenosis. ALL ABOVE CRITERIA BY NASCET. There is calcified plaque formation of the right cavernous carotid artery, with a mild stenosis (less than 50%). ALL ABOVE CRITERIA BY NASCET. There is calcified plaque formation of the left cavernous carotid artery, with a mild stenosis (less than 50%). ALL ABOVE CRITERIA BY NASCET. No vascular malformation. NECK: RIGHT COMMON CAROTID ARTERY: Unremarkable. No significant stenosis. No dissection or occlusion. RIGHT EXTRACRANIAL INTERNAL CAROTID ARTERY: Unremarkable. No significant stenosis. No dissection or occlusion. RIGHT EXTERNAL CAROTID ARTERY: Unremarkable. No occlusion. RIGHT EXTRACRANIAL VERTEBRAL ARTERY: Unremarkable. No significant stenosis. No dissection or occlusion. LEFT COMMON CAROTID ARTERY: Unremarkable. No significant stenosis. No dissection or occlusion. LEFT EXTRACRANIAL INTERNAL CAROTID ARTERY: Unremarkable. No significant stenosis. No dissection or occlusion. LEFT EXTERNAL CAROTID ARTERY: Unremarkable. No occlusion. LEFT EXTRACRANIAL VERTEBRAL ARTERY: Unremarkable. No significant stenosis. No dissection or occlusion. BRACHIOCEPHALIC AND SUBCLAVIAN ARTERIES: Unremarkable as visualized. No occlusion or significant stenosis. LUNG APICES: Unremarkable as visualized. HEAD and NECK: BONES/JOINTS: There are degenerative findings of the cervical spine. No discrete lytic or blastic abnormalities. SOFT TISSUES: Unremarkable. CAROTID STENOSIS REFERENCE USING NASCET CRITERIA: % ICA stenosis = (1 - narrowest ICA diameter/diameter of distal cervical ICA) x 100. Mild - <50% stenosis. Moderate - 50-69% stenosis. Severe - 70-94% stenosis. Near occlusion - 95-99% stenosis. Occluded - 100% stenosis. CT/STROKE CTA Head AND Neck W/Con IMPRESSION: 1. There is mild atherosclerotic plaque formation of the origin of the right internal carotid artery with less than 50% cross sectional diameter stenosis. ALL ABOVE CRITERIA BY NASCET. 2. There is mild atherosclerotic plaque formation of the origin of the left internal carotid artery with less than 50% cross sectional diameter stenosis. ALL ABOVE CRITERIA BY NASCET. 3. There is calcified plaque formation of the right cavernous carotid artery, with a mild stenosis (less than 50%). ALL ABOVE CRITERIA BY NASCET. 4. There is calcified plaque formation of the left cavernous carotid artery, with a mild stenosis (less than 50%). ALL ABOVE CRITERIA BY NASCET. Electronically Signed: Danish Paul MD at 21:05 EDT ,
--- NOTE | 2022-07-02 19:16 | CT_ITS ---
STUDY: CTA Chest WO/W Contrast Injection 07/02/2022 8:57 PM REASON FOR EXAM: Male, 71 years old. Crushing substernal chest pain, r/o PE or dissecti TECHNIQUE: The examination was performed with the intravenous administration of IV 75mL Isovue-370 contrast material. Post-processing of the angiographic images was performed, with axial imaging and 3D reconstruction. MIPS images were obtained. Individualized dose optimization techniques were used for this CT. COMPARISON: None. FINDINGS: There are degenerative changes of the shoulders. There is no pneumothorax. There is no demonstrated pleural abnormality. There are scattered blebs and bullae. This can be seen in pulmonary emphysema. There are multiple median sternotomy wires. There is a left sided pacemaker batterypack. There are calcifications of the coronary arteries. Normal mediastinum. Normal hilar regions. Normal pulmonary arteries. There is atherosclerotic calcification of the aortic arch with tortuosity and elongation of the aortic arch and descending thoracic aorta. There are multi-level degenerative changes of the thoracic spine. There are no acute findings of the upper abdomen. CT/CTA Chest W/WO Contrast IMPRESSION: No demonstrated pulmonary embolism or arterial dissection. There are no acute findings. Critical finding called and case discussed. Electronically Signed: Danish Paul MD at 21:02 EDT ,
--- NOTE | 2022-07-02 20:00 | EKG12_ITS ---
Test Reason : CP ADMIT Blood Pressure : / mmHG Vent. Rate : 066 BPM Atrial Rate : 066 BPM P-R Int : 218 ms QRS Dur : 184 ms QT Int : 454 ms P-R-T Axes : 054 -55 094 degrees QTc Int : 475 ms Atrial-sensed ventricular-paced rhythm with prolonged AV conduction Abnormal ECG When compared with ECG of 02-JUL-2022 14:10, MANUAL COMPARISON REQUIRED, DATA IS UNCONFIRMED Confirmed by CLARITA GOFF, LIBRADO ([id number]), index editor JAYESH QUEEN ([id number]) on 07/04/2022 10:00:23 AM Referred By: DR SANCHEZ Confirmed By:LIBRADO OTTO MD
[2022-07-02] MEDS: 0.9% Normal Saline 1,000 ML 75 ML IV (20:03)
[2022-07-02 20:10] LABS: Prothrombin Time (Protime)PT. 12.9 SECONDS (11.7-14.9)
[2022-07-02 20:16] LABS: Erythrocyte Sedimentation Rate 5 mm/hr (0-20)
[2022-07-02 20:26] LABS: AST(SGOT) 21 U/L (15-37); Alanine Aminotransfer ALT/SGPT 58 U/L (16-61); Albumin, Serum 3.9 g/dL (3.2-5.0); Alkaline Phosphatase 60 U/L (45-117); Bilirubin, Direct 0.11 mg/dL (0.00-0.30); CRP < 2.90 mg/L (0.0-3.0); Globulin 3.4 g/dL (2.2-4.2); Protein, Total 7.3 g/dL (6.4-8.2); Thyroid Stim Hormone (TSH) 0.38 uIU/mL (0.358-3.74)
--- NOTE | 2022-07-02 21:15 | NURSING ---
Radiology called with results Chest CTA was negative and Head/Neck CTA neg reported to Dr. Edmonds by phone stated noted.
[2022-07-02 21:19] LABS: Alcohol, Blood (Medical)-Serum < 3.0 mg/dL
[2022-07-02] MEDS: 0.9% Saline Lock 10 ML Syringe IV (21:41)
[2022-07-02] MEDS: Atorvastatin Calcium 80 MG Tablet PO (21:41)
[2022-07-03 03:30] VITALS: BP 136/81; PULSE 71; RESP 18; TEMP 36.6; O2SAT 97
[2022-07-03 04:34] LABS: Absolute Lymphocyte Count 1.47 X10^3/uL (0.83-4.51); Absolute Neutrophil Count 3.1 X10^3/uL (2.0-7.7); Basophil# 0.03 X10^3/uL; Basophil% 0.6 % (0-1); Eosinophils% 3.7 % (0-5); Hematocrit 36.9 % (40-54); Lymphocyte # 1.47 X10^3/ul (0.83-4.51); Lymphocyte % 27.3 % (19-41); Mean Corp Hgb Conc 35.2 g/dL (32-36); Mean Corpuscular Hgb 34.8 pg (27.0-32.0); Mean Corpuscular Volume 98.7 fL (80-94); Mean Platelet Vol. 10.2 fl (6.2-12.0); Monocyte# 0.56 X10^3/uL; Monocyte% 10.4 % (0-10); NRBC Flagged by Analyzer 0 % (0-5); Neutrophil # 3.12 X10^3/uL (2.7-7.7); Neutrophil % 57.8 % (47-70); Platelet Count 178 K/mm3 (150-450); RBC Distribution Width CV 12.3 % (11.6-14.6); RBC Distribution Width SD 45.1 fl (35.1-43.9); Red Blood Count 3.74 M/mm3 (4.6-6.2); White Blood Count 5.4 K/mm3 (4.4-11.0)
[2022-07-03 05:24] LABS: ALB/GLOB Ratio 1.2 RATIO (0.9-2.4); AST(SGOT) 25 U/L (15-37); Alanine Aminotransfer ALT/SGPT 56 U/L (16-61); Albumin, Serum 3.7 g/dL (3.2-5.0); Alkaline Phosphatase 59 U/L (45-117); Anion Gap 6 (5-15); BUN 26 mg/dL (7-18); BUN/Creat Ratio 25.5 RATIO (10-20); Calcium,Total 9.3 mg/dL (8.5-10.1); Chloride 108 mmol/L (98-107); Cholesterol 129 mg/dL (200); Creatinine, Serum 1.02 mg/dL (0.70-1.30); EST Glomerular Filtration Rate 76 mL/min (>60); Est Glom Filt Rate - Afr Amer 92 mL/min (>60); Estimated Creatinine Clearance 66.43 ml/min; Globulin 3.2 g/dL (2.2-4.2); Glucose 203 mg/dL (74-106); High Density Lipoprotein 36 mg/dL; Protein, Total 6.9 g/dL (6.4-8.2); Sodium Level 138 mmol/L (136-145); Triglycerides 444 mg/dL
[2022-07-03 07:20] VITALS: BP 138/85; PULSE 69; RESP 14; TEMP 36.6; O2SAT 97
--- NOTE | 2022-07-03 07:57 | PN.HOSP_ITS ---
Reason for Visit Reason for Visit: Diagnoses Type 2 diabetes mellitus without complications (07/02/22) Chest pain, unspecified (07/02/22) Unspecified symptoms and signs involving the nervous system (07/02/22) Presence of cardiac pacemaker (07/02/22) Presence of aortocoronary bypass graft (07/02/22) Subjective Subjective Sx resolved. Patient was having lunch yesterday where he became diaphoretic, dizzy, had chest pain and shortness of breath. Symptoms lasted about 90 minutes and then completely resolved. Objective Data Objective Data Vital Signs: Vital Signs Temp Pulse Resp BP Pulse Ox O2 Del Method 36.6 C 69 14 138/85 H 97 Room Air 07/03/22 07:20 07/03/22 07:20 07/03/22 07:20 07/03/22 07:20 07/03/22 07:20 07/03/22 07:20 Oxygen Delivery Method Room Air Weight: 100.9 kg Body Mass Index (BMI) 32.8 Intake & Output: Intake and Output for Last 24 Hours 07/01/22 07/02/22 07/03/22 23:59 23:59 23:59 Intake Total 500 / 500 Balance 500 / 500 Lab / Micro Data Result Diagrams: 07/03/22 04:04 07/03/22 04:04 Labs: Laboratory Results - last 24 hr 07/02/22 14:02: WBC 7.3, RBC 3.90 L, Hgb 13.8, Hct 38.3 L, MCV 98.2 H, MCH 35.4 H, MCHC 36.0, RDW Std Deviation 44.7 H, RDW Coeff of Kvng 12.5, Plt Count 223, MPV 10.3, Immature Gran % (Auto) 0.300, Neut % (Auto) 49.0, Lymph % (Auto) 36.8, Lyman % (Auto) 10.3 H, Eos % (Auto) 2.9, Baso % (Auto) 0.7, Absolute Neuts (auto) 3.6, Absolute Lymphs (auto) 2.69, Nucleated RBC % 0 07/02/22 14:02: Sodium 138, Potassium 4.3, Chloride 106, Carbon Dioxide 23.0, Anion Gap 9, BUN 35 H, Creatinine 1.33 H, Estim Creat Clear Calc 52.60, Est GFR (MDRD) Af Amer 68, Est GFR (MDRD) Non-Af 56 L, BUN/Creatinine Ratio 26.3 H, Glucose 184 H, Calcium 10.0, Troponin I High Sens 8 07/02/22 14:02: ESR 5 07/02/22 14:02: PT 12.9, INR 1.0 07/02/22 16:40: Troponin I High Sens 11 07/02/22 16:40: Total Bilirubin 0.50, Direct Bilirubin 0.11, AST 21, ALT 58, Alkaline Phosphatase 60, C-React Prot Ext Range < 2.90, Total Protein 7.3, Albumin 3.9, Globulin 3.4, TSH 0.38 07/02/22 20:25: Ethyl Alcohol < 3.0 07/03/22 04:04: WBC 5.4, RBC 3.74 L, Hgb 13.0, Hct 36.9 L, MCV 98.7 H, MCH 34.8 H, MCHC 35.2, RDW Std Deviation 45.1 H, RDW Coeff of Kvng 12.3, Plt Count 178, MPV 10.2, Immature Gran % (Auto) 0.200, Neut % (Auto) 57.8, Lymph % (Auto) 27.3, Lyman % (Auto) 10.4 H, Eos % (Auto) 3.7, Baso % (Auto) 0.6, Absolute Neuts (auto) 3.1, Absolute Lymphs (auto) 1.47, Nucleated RBC % 0 07/03/22 04:04: Sodium 138, Potassium 4.0, Chloride 108 H, Carbon Dioxide 24.0, Anion Gap 6, BUN 26 H, Creatinine 1.02, Estim Creat Clear Calc 66.43, Est GFR (MDRD) Af Amer 92, Est GFR (MDRD) Non-Af 76, BUN/Creatinine Ratio 25.5 H, Glucose 203 H, Calcium 9.3, Total Bilirubin 0.40, AST 25, ALT 56, Alkaline Phosphatase 59, Total Protein 6.9, Albumin 3.7, Globulin 3.2, Albumin/Globulin Ratio 1.2, Triglycerides 444 H, Cholesterol 129, LDL Cholesterol TNP, VLDL Cholesterol TNP, HDL Cholesterol 36 L Radiography Diagnostic Testing: Radiology Impression Brain CT 07/02/22 15:02 IMPRESSION: There are no acute findings. Electronically Signed: Danish Paul MD at 16:02 EDT , Chest X-Ray 07/02/22 15:13 IMPRESSION: There are no acute findings. Electronically Signed: Danish Paul MD at 15:48 EDT , Head/Neck CTA 07/02/22 19:04 IMPRESSION: 1. There is mild atherosclerotic plaque formation of the origin of the right internal carotid artery with less than 50% cross sectional diameter stenosis. ALL ABOVE CRITERIA BY NASCET. 2. There is mild atherosclerotic plaque formation of the origin of the left internal carotid artery with less than 50% cross sectional diameter stenosis. ALL ABOVE CRITERIA BY NASCET. 3. There is calcified plaque formation of the right cavernous carotid artery, with a mild stenosis (less than 50%). ALL ABOVE CRITERIA BY NASCET. 4. There is calcified plaque formation of the left cavernous carotid artery, with a mild stenosis (less than 50%). ALL ABOVE CRITERIA BY NASCET. N.B. : The above Results were Read Back by Danish Paul MD to Renea Benitez RN, and understanding confirmed on 07/02/2022 21:06:14 (ET). Electronically Signed: Danish Paul MD at 21:05 EDT , Chest CTA 07/02/22 19:16 IMPRESSION: No demonstrated pulmonary embolism or arterial dissection. There are no acute findings. Critical finding called and case discussed. Electronically Signed: Danish Paul MD at 21:02 EDT , Physical Exam Const alert and no apparent distress HEENT head/scalp atraumatic and moist oral mucous membranes Resp normal respiratory effort, no retractions, no use of accessory muscles and clear to auscultation bilaterally Cardio regular rate, regular rhythm, S1 normal heart sound and S2 normal heart sound GI normal to inspection, nondistended, normoactive bowel sounds, soft to palpation, non-tender and non-distended Extremity normal to inspection Neuro oriented x3, moves all extremities, no focal motor deficits and no sensory def icits noted Sensorium / Orientation: awake Coordination / Balance: rqyora-[id number] test normal and [id number] test normal Assessment & Plan Assessment/Plan (1) Neurological symptoms: PLAN: Suspect due to benign paroxysmal positional vertigo. Patient has had these symptoms intermittently and has seen ENT. Patient has seen Dr. kim who was concerned about crystals. No mention of M?ni?re's disease. Given the patient's recurrent history of this and the fact that his symptoms abated, I suspect that this is benign paroxysmal positional vertigo. Less likely M?ni?re's disease though patient does have tenderness in his left ear. I doubt that this is a stroke and I told he and his this and told them that I feel that the MRI would be of low yield. Patient already expressed concern about having the MRI due to claustrophobia. We all agreed not to proceed with the MRI. Patient had an EEG that was negative. I feel that those neurologic symptoms are prior related with his vertigo and generally feeling unwell. Will follow-up echocardiogram if that is unremarkable then patient be discharged home with continued use of as needed meclizine and I strongly advised patient to follow-up physical therapy for vestibular rehab. (2) Chest pain: PLAN: Likely due to anxiety due to feeling unwell. I do not feel the patient had a panic attack that led to the symptoms but she rather felt panicked and anxious when he was having this vertigo episode. Patient had a left heart cath in March that was unremarkable. No additional work-up at this time. PLAN: Plan Chronic conditions: * Type 2 diabetes mellitus-Glucose checks and sliding scale insulin-Hold metformin * s/p PPM #DVT ppx: Lovenox
--- NOTE | 2022-07-03 10:15 | CASEMGMT ---
Social Work SW met w/pt in room, completed PHQ-9 as pt may have had a stroke. Pt scored a 6. Pt denies any symptoms related to mental health, attributes symptoms to medical condition. No referrals needed at this time, SW remains available should any needs arise. TRICE Muniz
[2022-07-03 11:16] VITALS: BP 118/93; PULSE 73; RESP 17; TEMP 36.5; O2SAT 98
--- NOTE | 2022-07-03 12:05 | CHAPLAIN ---
Type of Pastoral Visit _x__ Initial Visit ___ Follow-up Visit ___ On-call Visit ___ General Patient Visit ___ Spiritual Assessment ___ Family Conference ___ Bereavement ___ Rapid Response ___ Code Blue ___ Other (describe below) Pastoral Care Referral From _x__ Patient ___ Family ___ Nurse ___ Physician ___ Women'S Soccer Coach ___ Career Advisor ___ Other (describe below) Sacrament/Intervention _x__ Active listening ___ Anointing ___ Hindu ___ Bereavement ___ Communion _x__ Emma exploration ___ ___ Life review _x__ Prayer ___ Reconciliation ___ Sacrament of Sick ___ Supportive presence ___ Wedding ___ Other (describe below) Pastoral Comments patient reports that he is expecting to be discharged; pt says that the need is to find out what has caused his issues; pt has been in hospital recently for similar issues; pt is member of local [employer] and finds his strength and hope in God; pt has family support; pt asks for prayer
--- NOTE | 2022-07-03 12:44 | DCINST_ITS ---
Discharge Instructions Diet Discharge Diet: No restrictions Follow Up Care Test Results: Test results from this visit will be discussed in further detail at your follow- up appointment, if applicable. Discharge Plan Admission Admit Date/Time: 07/02/22 18:48 Primary Reason for Your Visit: vertigo Attending Provider: Austin Null Primary Care Provider: Compa Ramos Consulting Providers: Yadira Jensen Instructions Additional Instructions / Restrictions: follow up with physical therapy for vestibular therapy Discharge Orders/Prescriptions Prescriptions: New meclizine 12.5 mg tablet 12.5 mg PO TID PRN (Reason: vertigo) Qty: 10 0RF Continued Lactobacillus acidophilus 1.5 mg (250 million cell) capsule 2,000 mmu cells PO BID prostegenix 1 cap PO DAILY bee pollen 550 mg capsule 550 mg PO DAILY Fish Oil 900-1,400 mg capsule,delayed release(DR/EC) 2 cap PO BID metformin 500 mg tablet extended release 24 hr 500 mg PO DAILY valacyclovir [Valtrex] 500 mg tablet 1,000 mg PO BID PRN (Reason: herpes) tadalafil [Cialis] 20 mg tablet 20 mg PO DAILY PRN (Reason: Erectile Dysfunction) Rx Instructions: administer approximately 30min before sexual activity; do not use more than 1 dose per 24hrs qppliato-tzy-QU-lycopen-lutein 1 EACH tablet 1 ea PO QHS Label Comments: supplement aspirin 81 mg tablet,chewable 81 mg PO DAILY Label Comments: heart health meclizine 25 mg tablet 25 mg PO 4X/DAY PRN PRN (Reason: Dizziness) Qty: 20 0RF famotidine 40 mg tablet 40 mg PO DAILY Qty: 90 3RF atorvastatin 80 mg tablet 80 mg PO QHS Qty: 90 3RF lisinopril 20 mg tablet 20 mg PO BID Qty: 180 3RF hydrochlorothiazide 25 mg tablet 25 mg PO DAILY Qty: 90 3RF amoxicillin 500 mg tablet 2,000 mg PO ONCE PRN (Reason: Mitral valve repair) Qty: 8 2RF Rx Instructions: Take 4 tablets 30-60 minutes prior to dental procedure Other Ambulatory Orders: Physical Therapy Evaluation (Routine) Location: None Selected Ordered By: Dr. Austin Null Referrals / Follow Up: Compa Ramos MD [Primary Care Provider] - Within 2 Weeks Disposition Disposition (needs filled in before D/C Order can be placed): Home, Self Care
--- NOTE | 2022-07-03 12:44 | CASEMGMT ---
Social Work As per admitting RN, pt has LW/POA but is not able to bring in the documents. Pt's Loly is pt's healthcare POA as per pt. TRICE Muniz
--- NOTE | 2022-07-03 12:59 | PCM.DC.SUM ---
Providers Date of Admission: 07/02/22 Primary Care Physician: Dr. Compa Ramos MD Reason For Visit: CVA R/O, CHEST PAIN Diagnosis Discharge Diagnosis (1) Neurological symptoms: Status: Acute Code(s): R29.90 - Unspecified symptoms and signs involving the nervous system Plan: Suspect due to benign paroxysmal positional vertigo. Patient has had these symptoms intermittently and has seen ENT. Patient has seen Dr. kim who was concerned about crystals. No mention of M?ni?re's disease. Given the patient's recurrent history of this and the fact that his symptoms abated, I suspect that this is benign paroxysmal positional vertigo. Less likely M?ni?re's disease though patient does have tenderness in his left ear. I doubt that this is a stroke and I told he and his this and told them that I feel that the MRI would be of low yield. Patient already expressed concern about having the MRI due to claustrophobia. We all agreed not to proceed with the MRI. Patient had an EEG that was negative. I feel that those neurologic symptoms are prior related with his vertigo and generally feeling unwell. Will follow-up echocardiogram if that is unremarkable then patient be discharged home with continued use of as needed meclizine and I strongly advised patient to follow-up physical therapy for vestibular rehab. (2) Chest pain: Status: Acute Code(s): R07.9 - Chest pain, unspecified Plan: Likely due to anxiety due to feeling unwell. I do not feel the patient had a panic attack that led to the symptoms but she rather felt panicked and anxious when he was having this vertigo episode. Patient had a left heart cath in March that was unremarkable. No additional work-up at this time. Plan Chronic conditions: Type 2 diabetes mellitus-Glucose checks and sliding scale insulin-Hold metformin s/p PPM #DVT ppx: Lovenox Medications at Discharge Home Medications uqoqvdrx-wwt-powyx acid 0.4 mg-lycopene 300 mcg-lutein 250 mcg tablet 1 ea PO QHS multivitamin 10/11/13 Lactobacillus acidophilus 1.5 mg (250 million cell) capsule 2,000 mmu cells PO BID 11/29/17 aspirin 81 mg chewable tablet 81 mg PO DAILY heart health 05/23/19 bee pollen 550 mg capsule 550 mg PO DAILY 05/23/19 prostegenix 1 cap PO DAILY 05/23/19 famotidine 40 mg tablet 40 mg PO DAILY #90 tabs 03/29/20 metformin 500 mg tablet,extended release 24 hr 500 mg PO DAILY 10/08/20 valacyclovir 500 mg tablet (Valtrex) 1,000 mg PO BID PRN herpes 04/08/21 atorvastatin 80 mg tablet 80 mg PO QHS #90 tabs 09/29/21 omega 3-txs-zac-fish oil 900 mg-1,400 mg capsule,delayed release (Fish Oil) 2 cap PO BID 10/07/21 tadalafil 20 mg tablet (Cialis) 20 mg PO DAILY PRN Erectile Dysfunction 10/07/21 lisinopril 20 mg tablet 20 mg PO BID #180 tabs 11/21/21 hydrochlorothiazide 25 mg tablet 25 mg PO DAILY #90 tabs 12/20/21 amoxicillin 500 mg tablet 2,000 mg PO ONCE PRN Mitral valve repair #8 tabs 05/22/22 meclizine 25 mg tablet 25 mg PO 4X/DAY PRN PRN Dizziness #20 tabs 05/24/22 meclizine 12.5 mg tablet 12.5 mg PO TID PRN vertigo #10 tabs 07/03/22 Hospital Course Operations None Procedures 2-D Echocardiogram Summary of Care Provided Minutes Spent on Discharge: 35 Weight / BMI Weight Weight: 100.9 kg Body Mass Index (BMI) 32.8 ABG / Lab / Microbiology Data Result Diagrams: 07/03/22 04:04 07/03/22 04:04 Laboratory: Laboratory Results - last 24 hr 07/02/22 14:02: WBC 7.3, RBC 3.90 L, Hgb 13.8, Hct 38.3 L, MCV 98.2 H, MCH 35.4 H, MCHC 36.0, RDW Std Deviation 44.7 H, RDW Coeff of Kvng 12.5, Plt Count 223, MPV 10.3, Immature Gran % (Auto) 0.300, Neut % (Auto) 49.0, Lymph % (Auto) 36.8, [place] % (Auto) 10.3 H, Eos % (Auto) 2.9, Baso % (Auto) 0.7, Absolute Neuts (auto) 3.6, Absolute Lymphs (auto) 2.69, Nucleated RBC % 0 07/02/22 14:02: Sodium 138, Potassium 4.3, Chloride 106, Carbon Dioxide 23.0, Anion Gap 9, BUN 35 H, Creatinine 1.33 H, Estim Creat Clear Calc 52.60, Est GFR (MDRD) Af Amer 68, Est GFR (MDRD) Non-Af 56 L, BUN/Creatinine Ratio 26.3 H, Glucose 184 H, Calcium 10.0, Troponin I High Sens 8 07/02/22 14:02: ESR 5 07/02/22 14:02: PT 12.9, INR 1.0 07/02/22 16:40: Troponin I High Sens 11 07/02/22 16:40: Total Bilirubin 0.50, Direct Bilirubin 0.11, AST 21, ALT 58, Alkaline Phosphatase 60, C-React Prot Ext Range < 2.90, Total Protein 7.3, Albumin 3.9, Globulin 3.4, TSH 0.38 07/02/22 20:25: Ethyl Alcohol < 3.0 07/03/22 04:04: WBC 5.4, RBC 3.74 L, Hgb 13.0, Hct 36.9 L, MCV 98.7 H, MCH 34.8 H, MCHC 35.2, RDW Std Deviation 45.1 H, RDW Coeff of Kvng 12.3, Plt Count 178, MPV 10.2, Immature Gran % (Auto) 0.200, Neut % (Auto) 57.8, Lymph % (Auto) 27.3, [place] % (Auto) 10.4 H, Eos % (Auto) 3.7, Baso % (Auto) 0.6, Absolute Neuts (auto) 3.1, Absolute Lymphs (auto) 1.47, Nucleated RBC % 0 07/03/22 04:04: Sodium 138, Potassium 4.0, Chloride 108 H, Carbon Dioxide 24.0, Anion Gap 6, BUN 26 H, Creatinine 1.02, Estim Creat Clear Calc 66.43, Est GFR (MDRD) Af Amer 92, Est GFR (MDRD) Non-Af 76, BUN/Creatinine Ratio 25.5 H, Glucose 203 H, Calcium 9.3, Total Bilirubin 0.40, AST 25, ALT 56, Alkaline Phosphatase 59, Total Protein 6.9, Albumin 3.7, Globulin 3.2, Albumin/Globulin Ratio 1.2, Triglycerides 444 H, Cholesterol 129, LDL Cholesterol TNP, VLDL Cholesterol TNP, HDL Cholesterol 36 L Radiography Diagnostic Testing: Radiology Impression Brain CT 07/02/22 15:02 IMPRESSION: There are no acute findings. Electronically Signed: Danish Paul MD at 16:02 EDT , Chest X-Ray 07/02/22 15:13 IMPRESSION: There are no acute findings. Electronically Signed: Danish Paul MD at 15:48 EDT , Head/Neck CTA 07/02/22 19:04 IMPRESSION: 1. There is mild atherosclerotic plaque formation of the origin of the right internal carotid artery with less than 50% cross sectional diameter stenosis. ALL ABOVE CRITERIA BY NASCET. 2. There is mild atherosclerotic plaque formation of the origin of the left internal carotid artery with less than 50% cross sectional diameter stenosis. ALL ABOVE CRITERIA BY NASCET. 3. There is calcified plaque formation of the right cavernous carotid artery, with a mild stenosis (less than 50%). ALL ABOVE CRITERIA BY NASCET. 4. There is calcified plaque formation of the left cavernous carotid artery, with a mild stenosis (less than 50%). ALL ABOVE CRITERIA BY NASCET. N.B. : The above Results were Read Back by Danish Paul MD to Renea Benitez RN, and understanding confirmed on 07/02/2022 21:06:14 (ET). Electronically Signed: Danish Paul MD at 21:05 EDT , Chest CTA 07/02/22 19:16 IMPRESSION: No demonstrated pulmonary embolism or arterial dissection. There are no acute findings. Critical finding called and case discussed. Electronically Signed: Danish Paul MD at 21:02 EDT Reading Location ID and State: [address] [place] [place] [address] , Service support , D/C Instructions Discharge Diet: No restrictions Meaningful Use Info Meaningful Use Diagnoses (Choose all that apply): None applicable Discharge Plan Admission Admit Date/Time: 07/02/22 18:48 Primary Reason for Your Visit: vertigo Attending Provider: Austin Null Primary Care Provider: Compa Ramos Consulting Providers: Yadira Jensen Instructions Additional Instructions / Restrictions: follow up with physical therapy for vestibular therapy Discharge Orders/Prescriptions Prescriptions: New meclizine 12.5 mg tablet 12.5 mg PO TID PRN (Reason: vertigo) Qty: 10 0RF Continued Lactobacillus acidophilus 1.5 mg (250 million cell) capsule 2,000 mmu cells PO BID prostegenix 1 cap PO DAILY bee pollen 550 mg capsule 550 mg PO DAILY Fish Oil 900-1,400 mg capsule,delayed release(DR/EC) 2 cap PO BID metformin 500 mg tablet extended release 24 hr 500 mg PO DAILY valacyclovir [Valtrex] 500 mg tablet 1,000 mg PO BID PRN (Reason: herpes) tadalafil [Cialis] 20 mg tablet 20 mg PO DAILY PRN (Reason: Erectile Dysfunction) Rx Instructions: administer approximately 30min before sexual activity; do not use more than 1 dose per 24hrs lqqtfuml-bui-FH-lycopen-lutein 1 EACH tablet 1 ea PO QHS Label Comments: supplement aspirin 81 mg tablet,chewable 81 mg PO DAILY Label Comments: heart health meclizine 25 mg tablet 25 mg PO 4X/DAY PRN PRN (Reason: Dizziness) Qty: 20 0RF famotidine 40 mg tablet 40 mg PO DAILY Qty: 90 3RF atorvastatin 80 mg tablet 80 mg PO QHS Qty: 90 3RF lisinopril 20 mg tablet 20 mg PO BID Qty: 180 3RF hydrochlorothiazide 25 mg tablet 25 mg PO DAILY Qty: 90 3RF amoxicillin 500 mg tablet 2,000 mg PO ONCE PRN (Reason: Mitral valve repair) Qty: 8 2RF Rx Instructions: Take 4 tablets 30-60 minutes prior to dental procedure Other Ambulatory Orders: Physical Therapy Evaluation (Routine) Location: None Selected Ordered By: Dr. Austin Null Referrals / Follow Up: Compa Ramos MD [Primary Care Provider] - Within 2 Weeks Disposition Disposition (needs filled in before D/C Order can be placed): Home, Self Care Charges/Coding Visit Charges Inpatient E&M: 52403 Disch Hosp >30min
[2022-07-03 14:28] VITALS: BMI 32.8
--- NOTE | 2022-07-03 14:44 | PHA.DC.MR ---
Pharmacy Service has performed discharge medication reconciliation for this patient. The patient's discharge medication list was reviewed for discrepancies and discrepancies were resolved. Home Medications pcaibike-qhy-vceml acid 0.4 mg-lycopene 300 mcg-lutein 250 mcg tablet 1 ea PO QHS multivitamin 10/11/13 Lactobacillus acidophilus 1.5 mg (250 million cell) capsule 2,000 mmu cells PO BID supplement 11/29/17 aspirin 81 mg chewable tablet 81 mg PO DAILY heart health 05/23/19 bee pollen 550 mg capsule 550 mg PO DAILY supplement 05/23/19 prostegenix 1 cap PO DAILY 05/23/19 famotidine 40 mg tablet 40 mg PO DAILY #90 tabs 03/29/20 metformin 500 mg tablet,extended release 24 hr 500 mg PO DAILY diabetes 10/08/20 valacyclovir 500 mg tablet (Valtrex) 1,000 mg PO BID PRN herpes 04/08/21 omega 5-fdu-dub-fish oil 900 mg-1,400 mg capsule,delayed release (Fish Oil) 2 cap PO BID supplement 10/07/21 tadalafil 20 mg tablet (Cialis) 20 mg PO DAILY PRN Erectile Dysfunction 10/07/21 amoxicillin 500 mg tablet 2,000 mg PO ONCE PRN Mitral valve repair #8 tabs 05/22/22 meclizine 25 mg tablet 25 mg PO 4X/DAY PRN PRN Dizziness #20 tabs 05/24/22 atorvastatin 80 mg tablet 80 mg PO QHS cholesterol 07/03/22 hydrochlorothiazide 25 mg tablet 25 mg PO DAILY diuretic 07/03/22 lisinopril 20 mg tablet 20 mg PO BID blood pressure 07/03/22 meclizine 12.5 mg tablet 12.5 mg PO TID PRN vertigo #10 tabs 07/03/22
== END 2022-07-03 14:55 | disposition home or self-care (01) ==
LOC: ED 16:58 → PCU 18:31
PROVIDERS: Admitting Provider Internal Medicine; Emergency Provider Emergency Medicine; PCP Family Medicine
DX: R29.90 Unspecified symptoms and signs involving the nervous system (principal); E11.9 Type 2 diabetes mellitus without complications; Z79.82 Long term (current) use of aspirin; I10 Essential (primary) hypertension; H93.19 Tinnitus, unspecified ear; I25.10 Atherosclerotic heart disease of native coronary artery without angina pectoris; R42 Dizziness and giddiness; M54.2 Cervicalgia; R07.89 Other chest pain; E78.5 Hyperlipidemia, unspecified; R06.02 Shortness of breath; Z79.899 Other long term (current) drug therapy; Z79.84 Long term (current) use of oral hypoglycemic drugs; Z95.1 Presence of aortocoronary bypass graft; Z95.0 Presence of cardiac pacemaker
CPT/HCPCS: 36415; 70450; 70496; 70498; 71045; 71275; 80048; 80053; 80061; 80076; 82077; 84443; 84484; 85025; 85610; 85652; 86140; 93005; 93306; 95819; 96360; 96361; 97161; 97165; 99221; 99285; J7030; Q9957; Q9967; A4216; C8929; G0378

== ENCOUNTER 2022-07-12 14:15 | Outpatient (RCR) | payer MEDICARE, SELFPAY ==
--- NOTE | 2022-07-12 15:20 | HP.PTEVAL ---
Patient's Visit Information LEONA PASCUAL is a 71 year old M referred to Physical Therapy by Dr. Austin Null DO with a diagnosis of Balance deficits. Date of Evaluation: 07/12/22 Physical Therapist: Austin Ware, ARMENT, OCS, CSCS - Visit Plan Frequency: 1x/Week Duration: 2-4 Weeks Plan: weekly x 2-4 as helpful for vestibular and balance progression to VOR x 2 if helpful and ec balance ex. Pt to see dental hygienist mobile coordinator in meantime and call if other reasoning for dizzyness. No obvious vestibula cause today with subjective or objective outside of vestibular weakness. - Subjective Hospitalist sent me. I had vertigo. had a pacemaker placed last October, Echo looks worse when in hopsital and SOB at times. Went to hospital due to dizzyness in early June. Had just finished lunch on Mother;s day all of a sudden while watching TV. Things started spinning out of nowhere. Squad took him to hospital and did EEG and catscans and blood tests, nothing to explain vertigo. In there one day. It lasted 1.5 hours and the lights were flickering. iot went away . Happened for an hour the next day for 1.5 hours and vomitted then gone again. Put him on meclizine. Now feels dizzy every day, described as full ness and L ear ringing. Went to ENT and he said it might be his heart. Will see dental hygienist mobile coordinator Sunday. Heart cath in March was clear. Feeling is just fullness in head and worse at times for no reason, not described as positonal. Does stuff out in the lawn and has to rest at times. Might get dizzy if he stands to quick. Sleep is OK. Not employed. Activity is much less, less driving, he can get out in yard but has to take it easy due to SOB. fell one time a month ago tripping while walking BW. - Objective Walks into PT I, trasnfers no UE, Steps reciprocal with no rail, very good balance except on foam with ec. Cervical aROM WFL and no pain. UE AROM WFL and no pain. - B hallpike lucia. - roll test. No SOB today and I am unable to ellicit any worsening of symptoms today. Oculomotor: no nystagmus with gaze or head shake. - ocular tilt. - skew eye deviation. - head thrust. + DVA 6 line difference form SVA on eye chart. no nystagmus with gaze or head shake. pursuit and saccades are normal and asymptomatic. VOR no symptoms and appears normal - Balance/Special Test Scores Functional Gait Assessment Score: 30 % Disability: 0 CATSIB Score (Max score 120 seconds): 93 Dizziness Score: 48 - Goals Goal 1:: abolish dizzyness feeling in head Goal Time Frame: 2-4 Weeks Goal 2:: Pt feel back to normal activity Goal Time Frame: 2-4 Weeks Goal 3:: 28 or better DHI Goal Time Frame: 2-4 Weeks - Rehabilitation Potential Physical Therapy Diagnosis: pt without obvious vestibular problems other than weakness possibly leading to balance and DVA, not sure this correlates with dizzyness considering his c/o SOB and lack of obvious cause to dizzyness. He will see heart doctor in two days. Rehabilitation Potential: Questionable - Anticipated Interventions Patient/Client Instruction: Educate patient on: Condition, Plan of Care For the Purpose of:: To increase tolerance to activity/condition/position Other: to decrease dizzy feeling Therapeutic Exercise to Include: Balance training Comment: vestibualr and balance Other: to decrease dizzy feeling. Thank you for the opportunity to evaluate your patient. For Medicare and Medicare HMO plans, please review the plan of care and approve it. It will need to be FAXED BACK to us at [phone] for Medicare purposes. For Medicare only, by signing this I certify the plan of care. Please let me know if there are questions or concerns regarding this plan of care. Physician Signature: Date:
--- NOTE | 2022-08-28 14:05 | HP.PT.NRP ---
Patient Information Patient Information: LEONA PASCUAL was seen in my office for initial evaluation on 07/12/22. The following Plan of Care was established for this patient: POC Established Initial Frequency: 1x/Week Initial Duration: 2-4 Weeks Anticipated Interventions Patient/Client Instruction: Educate patient on: Condition and Plan of Care For the Purpose of:: To increase tolerance to activity/condition/position Other: to decrease dizzy feeling Therapeutic Exercise to Include: Balance training Other: to decrease dizzy feeling. Last Seen Last Seen: This patient was last seen in our office 07/12/22. Pertinent comments regarding their Physical therapy will appear below: Pt seen for one visit and POC established but did not schedule or attend any further visits. At this point, it has been over 6 weeks and I will discontinue due to nonattendance. At this point I will be discontinuing this patient from physical therapy. I would be happy to see this patient again in the future if found appropriate by the physician. Thank you! Austin Ware, DPT, OCS, CSCS Balance/Gait/Functional tests Balance/Special Test Scores Functional Gait Assessment Score: 30 % Disability: 0 CATSIB Score (Max score 120 seconds): 93 Dizziness Score: 48
== END 2022-07-12 19:00 | disposition home or self-care (01) ==
LOC: PT 14:15
PROVIDERS: PCP Family Medicine; Visit Provider Family Medicine
DX: R26.89 Other abnormalities of gait and mobility (principal)
CPT/HCPCS: 97162

== ENCOUNTER → 2024-02-06 | Outpatient (CLI) | payer MEDICARE, SELFPAY ==
--- NOTE | 2024-02-06 12:41 | ECHOD_ITS ---
Reason For Study: EVAL EF AND MV REPAIR Procedure This was a 2D Doppler, Color Flow transthoracic echocardiogram. Exam performed in department. Left Ventricle Normal LV size. Mild concentric left ventricular hypertrophy. Left ventricular systolic function is normal. Stage 1 diastolic dysfunction. The left ventricular ejection fraction is 65 %. No regional wall motion abnormalities noted. Right Ventricle Normal RV size. ICD or pacer leads identified within the right ventricle. Normal systolic function. Atria Normal left atrium. Normal right atrium. Mitral Valve Status post mitral valve repair with annuloplasty ring. Tricuspid Valve Normal tricuspid valve. Mild (1+) tricuspid valve insufficiency. Pulmonary artery systolic pressure is 37 mmHg. Aortic Valve Trisinus/trileaflet aortic valve. Pulmonic Valve Normal pulmonic valve. Mild (1+) pulmonic valve insufficiency. Great Vessels Normal aortic root. Pericardium/Pleural No pericardial effusion. MMode/2D Measurements & Calculations LVIDd: 4.4 cm IVSd: 1.4 cm LVOT diam: 2.0 cm LVIDs: 2.7 cm LVPWd: 1.2 cm LVOT area: 3.0 cm2 RVDd: 3.8 cm FS: 38.1 % Ao root diam: 3.5 cm LAV(MOD-bp): 55.6 ml LVAd ap4: 27.3 cm2 LAV(MOD-bp) Indexed: 25.6 ml/m2 LVLd ap4: 8.5 cm LAV(MOD-sp2): 52.7 ml EDV(MOD-sp4): 72.1 ml LAV(MOD-sp4): 57.6 ml EDV(sp4-el): 74.7 ml LVAs ap4: 14.5 cm2 LVLs ap4: 6.9 cm ESV(MOD-sp4): 26.5 ml ESV(sp4-el): 26.1 ml EF(MOD-sp4): 63.2 % EF(sp4-el): 65.1 % SV(MOD-sp4): 45.6 ml SV(sp4-el): 48.7 ml LA A4 area: 20.5 cm2 SI(MOD-sp4): 21.0 ml/m2 LA dimension(2D): 4.1 cm RA A4 area: 13.5 cm2 TAPSE: 1.6 cm Time Measurements MV dec time: 0.40 sec Doppler Measurements & Calculations MV E max josemanuel: 189.7 cm/sec Lat Peak E' Josemanuel: 8.7 cm/sec Med Peak E' Josemanuel: 5.9 cm/sec MV A max josemanuel: 209.8 cm/sec E/E' lat: 21.7 E/E' med: 32.1 MV E/A: 0.90 MV V2 max: 261.7 cm/sec MV P1/2t max josemanuel: 210.4 cm/sec Ao V2 max: 169.6 cm/sec MV max P.4 mmHg MV P1/2t: 115.6 msec Ao max P.5 mmHg MV V2 mean: 193.9 cm/sec Ao V2 mean: 113.5 cm/sec MV mean P.5 mmHg MV dec slope: 533.0 cm/sec2 Ao mean P.9 mmHg MV V2 VTI: 68.7 cm MVA(P1/2t): 1.9 cm2 Ao V2 VTI: 27.6 cm AV (velocity ratio): 0.88 MVA(VTI): 1.1 cm2 SALOMON(I,D): 2.6 cm2 SALOMON(V,D): 2.4 cm2 LV V1 max: 137.7 cm/sec SV(LVOT): 73.0 ml PA V2 max: 104.5 cm/sec LV V1 max P.6 mmHg LV V1 mean P.7 mmHg LV V1 mean: 90.5 cm/sec LV V1 VTI: 24.2 cm TR max josemanuel: 289.7 cm/sec TR max P.6 mmHg ECHO/Echo Complete Interpretation Summary Status post mitral valve repair with annuloplasty ring. Normal LV size. Left ventricular systolic function is normal. Mild concentric left ventricular hypertrophy. Stage 1 diastolic dysfunction. The left ventricular ejection fraction is 65 %. Ordering Physician: Duran Sweet/Mark Karimi Referring Physician: GERARD MAN Performed By: Meagan Tolliver RDCS
== END | disposition home or self-care (01) ==
LOC: CVS 12:38
PROVIDERS: PCP Family Medicine; Referring Provider Nurse Practitioner Family; Visit Provider Nurse Practitioner Family
DX: Z98.890 Other specified postprocedural states (principal); I10 Essential (primary) hypertension; Z95.0 Presence of cardiac pacemaker; Z95.1 Presence of aortocoronary bypass graft
CPT/HCPCS: 93306

== ENCOUNTER → 2024-05-06 | Outpatient (CLI) | payer MEDICARE, SELFPAY ==
--- NOTE | 2024-05-06 11:48 | STRESSREP ---
Stress Test Report Pharmacologic myocardial perfusion stress test. 73-year-old male with a history of chest pain Resting EKG demonstrates sinus rhythm with ventricular paced rhythm with a rate of 73 bpm. Resting blood pressure is 122/74 mmHg. 0.4 mg of regadenoson was infused per usual protocol followed by rapid intravenous saline flush injection. Continuous EKG monitoring was performed. The maximum heart rate was 83 bpm which was 56% of max impacted heart rate the maximum workload was 1 metabolic equivalent. At rest there were no ST or T wave changes noted to suggest ischemia and at peak infusion nonspecific ST changes were noted which did not meet the criteria for ischemia. No clinical angina is noted. The final blood pressure was 104/58 mmHg. Myocardial perfusion protocol. 14.2 mCi of technetium 99m sestamibi was injected at rest. 0.4 mg of regadenoson was infused per usual protocol. At peak infusion 44.7 mCi of technetium 99m sestamibi was injected stress images were obtained stress and rest images were reconstructed and compared in the short axis vertical long and horizontal long axis. Gated images were also obtained. Perfusion SPECT analysis: Review of the stress images demonstrate normal uptake of tracer noted in all areas of the myocardium. There is mild reduction of perfusion noted in the apex. The resting images similar demonstrated normal uptake of tracer noted in all areas of the myocardium with minimal reduction in the apex only. A small amount of apical ischemia cannot be completely excluded. Gated SPECT analysis: The gated ejection fraction is 72%. Conclusion: Mildly abnormal pharmacologic myocardial perfusion stress test. Mild apical ischemia present Preserved ejection fraction.
== END | disposition home or self-care (01) ==
LOC: CVS 06:11
PROVIDERS: PCP Family Medicine; Referring Provider Family Medicine; Visit Provider Family Medicine
DX: R06.09 Other forms of dyspnea (principal); I25.83 Coronary atherosclerosis due to lipid rich plaque; R53.83 Other fatigue
CPT/HCPCS: 78452; 93017; A9500; A4216; J2785

== ENCOUNTER 2024-05-29 06:41 | Day surgery (SDC) | payer MEDICARE, SELFPAY ==
--- NOTE | 2024-05-22 08:33 | RAD_ITS ---
PROCEDURE: CHEST PA AND LATERAL 05/22/2024 REASON FOR EXAM: PRE-PROCEDURE: [facility] TECHNIQUE: Frontal and lateral views of the chest. COMPARISON: 07/02/2022 FINDINGS: The lungs are clear. Pulmonary vascularity appears within limits. No pneumothorax or pleural effusion. Status post median sternotomy and possible previous GOODMAN coronary bypass and mitral valve replacement. development technical lead pacemaker again seen. Atherosclerotic change of the aortic arch again noted. RAD/Chest PA and Lateral IMPRESSION: No evidence of acute disease. Reading Location: [id number]
[2024-05-22 09:10] LABS: Absolute Lymphocyte Count 1.34 X10^3/uL (0.83-4.51); Absolute Neutrophil Count 4.8 X10^3/uL (2.0-7.7); Basophil# 0.06 X10^3/uL; Basophil% 0.9 % (0-1); Eosinophil# 0.18 X10^3/uL; Eosinophils% 2.6 % (0-5); Hematocrit 40.7 % (40-54); Hemoglobin 14.9 g/dL (13.0-16.5); Lymphocyte # 1.34 X10^3/ul (0.83-4.51); Lymphocyte % 19.1 % (19-41); Mean Corp Hgb Conc 36.6 g/dL (32-36); Mean Corpuscular Hgb 35.2 pg (27.0-32.0); Mean Corpuscular Volume 96.2 fL (80-94); Mean Platelet Vol. 9.9 fl (6.2-12.0); Monocyte# 0.63 X10^3/uL; NRBC Flagged by Analyzer 0 % (0-5); Neutrophil % 68.1 % (47-70); Platelet Count 240 K/mm3 (150-450); RBC Distribution Width CV 13.1 % (11.6-14.6); RBC Distribution Width SD 45.5 fl (35.1-43.9); Red Blood Count 4.23 M/mm3 (4.6-6.2)
[2024-05-22 11:55] LABS: Anion Gap 13 (5-15); BUN 27 mg/dL (4-19); BUN/Creat Ratio 19.6 RATIO (10-20); Calcium,Total 10.4 mg/dL (7.6-11.0); Chloride 99 mmol/L (98-108); Creatinine, Serum 1.37 mg/dL (0.70-1.20); EST Glomerular Filtration Rate 54 (>60); Glucose 111 mg/dL (70-99); Sodium Level 134 mmol/L (133-145)
[2024-05-28 08:27] VITALS: BMI 31.5
--- NOTE | 2024-05-28 12:08 | HP.PCM_ITS ---
History and Physical Date of Admission: 05/29/24 This is a 73-year-old man who presents to [facility] today for a heart catheterization. He has a history of coronary artery disease status post bypass surgery in 2018. He underwent a left internal mammary artery to the left anterior descending artery. He was also noted to have mitral regurgitation and underwent mitral valve repair with triangular resection of of the prolapse and the flail portion of P2. 32 mm annuloplasty band was placed. He also has a history of hypertension, an abdominal aortic aneurysm, and diabetes. He was hospitalized and was noted to have complete heart block and underwent a dual- chamber permanent pacemaker implantation in October 2021. His blood pressure had been going up and he had his beta-dustin reinstituted. His major complaint now is that he gets short of breath with minimal exertion. Indeed he presented to the emergency room with dizziness as well as shortness of breath. His pacemaker was interrogated. It demonstrated AV sequential pacing. He has had no paula syncopal episodes. He did have an echocardiogram in October 2021 demonstrating preserved ejection fraction of 55 to 60%. He also has complained of some chest discomfort described as a tightness. In the emergency room his troponin was normal, BNP was normal, D-dimer was not elevated and the patient was discharged home to follow-up with us. He presented again complaining of chest discomfort which was recurrent and so he was admitted he underwent a cardiac catheterization in March 2022 demonstrated normal coronary arteries no aortic valve gradient and intact mitral valve. Medical therapy was recommended. He continues to say that he is not feeling well and has a lot of above symptomatology. He had some dizziness was seen by ENT and that was ruled out. They keep telling him that it is a cardiac condition. He did have a repeat echocardiogram on june demonstrating an ejection fraction of 50% apical wall motion abnormality consistent with pacemaker activation is stable mitral valve. With primary care provider, he underwent stress test on 05/06/2024 that was a mildly abnormal pharmacologic myocardial perfusion stress test with mild apical ischemia present. He was noted to have a preserved ejection fraction. On account of abnormal stress test, he will proceed with heart catheterization. He denies chest, arm, jaw, or neck discomfort. He denies palpitations. He denies bilateral lower extremity edema. He denies claudication. He denies shortness of breath with activity, shortness of breath at rest, orthopnea, or PND. He denies chronic cough. He denies significant, sudden weight gain. He states that his dizziness is improved and is managed with meclizine therapy on a daily basis. After his dizziness he develops vomiting and diarrhea. He denies lightheadedness, near-syncope, or syncope. He denies blood in urine, blood in stool, or epistaxis. He denies fever with chills. He denies myalgia. He denies fatigue. His exercise level has remained stable. Intake Vital Signs: See EMR Intake Visit Reasons: [facility] [employer] Required: No Is patient in pain?: No Allergies fenofibrate Allergy (Verified 01/10/24 09:44) Unknown naproxen sodium (From Aleve) Adverse Reaction (Verified 01/10/24 09:44) Other Medications: See EMR Ejection fraction %: 50 Have you fallen in the past year?: No PFSH Medical History Complete heart block Type 2 diabetes mellitus TIA (transient ischemic attack) C. difficile diarrhea Non-rheumatic mitral regurgitation Hyperlipidemia Arthritis Sliding hiatal hernia Hepatic steatosis Abnormal LFTs Gallstone pancreatitis Essential (primary) hypertension Gall stones Atherosclerotic heart disease of [place] coronary artery without angina pectoris Obesity Gallbladder polyp Abdominal aortic aneurysm Surgical History History of right hip replacement (11/26/23) History of permanent cardiac pacemaker placement (11/07/21) Status post total replacement of left hip H/O repair of rotator cuff H/O coronary artery bypass surgery (10/25/17) History of mitral valve repair (10/25/17) H/O shoulder surgery Hx laparoscopic cholecystectomy History of hernia repair History of left knee surgery Family History Mother DiabetesFather Heart disease Social History Smoking Status: Never smoker alcohol intake: never substance use type: does not use caffeine: Yes Type: coffee Number of servings: 3 what type of physical activity do you participate in: none seatbelt use: always do you feel safe at home: Yes ROS Const Const: Negative for fatigue or weakness Eyes Eyes: Negative for change in vision ENT ENT: Negative for dizziness or balance problems Cardio Chest Pain: No Palpitations: No Edema: Left (Mild relates to old injury) Muscle aches with walking: None Resp Respiratory: Negative for SOB with activity, SOB at rest or SOB orthopnea\SOB lying down GI GI: Negative nausea or heartburn : Negative for hematuria or frequent nighttime urination/ nocturia Musc Musc: Negative for balance problems Skin Skin: Negative non-healing lesions or rash Neuro Neuro: Negative for dizziness, lightheadedness, near syncope, syncope or weakness Endo Endo: Negative for fatigue Allergy Allergy/Immunology: Negative for rash Cardiology Exam Const Appearance: cooperative, healthy appearing, comfortable and no acute distress Nutritional Appearance: average body habitus and well nourished Orientation: alert, awake and oriented x3 Head Head: normal to inspection Ears: hearing grossly normal bilaterally Nose: external nose normal Face and Sinus: face symmetric Mouth: moist mucous membranes Eyes General: appearance normal, both eyes and all related structures Eyelids: eyelids normal EOM: EOM intact bilaterally Neck Neck: normal visual inspection and no JVD Carotids: normal carotid upstroke Chest Chest inspection: normal inspection of the chest, symmetric chest movement and normal respiratory effort; Negative cough Auscultation: Bilateral: Clear to Auscultation Cardio Rate: regular rate Rhythm: regular rhythm Heart sounds: S1 normal and S2 normal; Negative rub, gallop or murmur GI GI: normal to inspection Neuro General: patient alert, patient awake, patient oriented x3 and CN's II-XI intact bilaterally Skin Skin: no rashes or lesions noted Extremities Pulses: Normal: Right Posterior Tibial Pulse, Left Posterior Tibial Pulse, Right Radial Pulse and Left Radial Pulse Lower Extremity Edema: None: Bilateral Psych Psychological: normal affect Supplemental Info Supplemental Information Echocardiogram from 02/06/2024: Interpretation Summary Status post mitral valve repair with annuloplasty ring. Normal LV size. Left ventricular systolic function is normal. Mild concentric left ventricular hypertrophy. Stage 1 diastolic dysfunction. The left ventricular ejection fraction is 65 %. Echocardiogram 07/03/2022 Interpretation Summary Normal LV size. The left ventricular ejection fraction is 50 %. Stage 1 diastolic dysfunction. Pulmonary artery systolic pressure is 39 mmHg. Mid-anteroseptal : Hypokinetic Inferior [place] : Hypokinetic Apical wall motion abnormality may reflect pacemaker activation. Contrast injection was performed. CARDIAC CATHETERIZATION 03/24/22: CONCLUSIONS Nonobstructive coronary arteries.? Preserved left ventricular systolic function.? Intact mitral valve.? No aortic valve gradient. RECOMMENDATIONS Medical therapy CORONARY ANGIOGRAPHY DOMINANCE:? Right Dominant LEFT HEART ASSESSMENT Left Ventricular Ejection Fraction: by LV Gram 60 % Normal LV wall motion Normal left ventricular end-diastolic pressure LEFT MAIN: Angiographically normal LEFT ANTERIOR DESCENDING ARTERY: MID LAD: Mid segment high-grade stenosis noted. CIRCUMFLEX ARTERY: Mild luminal irregularities RIGHT CORONARY ARTERY: Mild luminal irregularities less than 30% GRAFTS: GOODMAN graft to the Mid LAD is patent VALVE FINDINGS: Repaired mitral valve appears to be intact with no regurgitation Abdominal aorta ultrasound 04/28/2021: Distal abdominal aortic aneurysm measuring 4.18 x 4.62 cm in diameter. Normal aortic flow rated identified. Left common iliac 0.88 x 0.95 cm in diameter which is normal Right common iliac 0.83 x 0.95 cm in diameter which is normal July 09, 2009 the aneurysm measured 3 x 2.9 cm Pharmacological stress test from 05/06/2024: Conclusion: Mildly abnormal pharmacologic myocardial perfusion stress test. Mild apical ischemia present Preserved ejection fraction. Assessment and Plan Assessment and Plan (1) History of mitral valve repair: Status: Chronic Comment: MVR w/ 32-mm annuloplasty band and CABG x 1 GOODMAN-LAD 10/25/17 Plan: Echocardiogram January 2024 showed stable mitral valve and a left ventricular ejection fraction of 65%. He will continue antibiotic prophylaxis according to AHA guidelines. We will continue to monitor. (2) H/O coronary artery bypass surgery: Status: Chronic Comment: CABG x 1 GOODMAN-LAD w/ MVR w/ 32-mm annuloplasty band 10/25/17 Plan: This is being monitored with primary care provider. He was minded LDL goal of 70 and below for secondary prevention. (3) History of permanent cardiac pacemaker placement: Status: Chronic Plan: Device report from 07/15/2022 showed 15 mode switch episodes, less than 1% of total time, no ventricular high rate episodes, electrograms for mode switch episodes showing atrial far field oversensing and not true AT/AF episodes, ventricular paced 99%, atrial paced 9.9%, and battery life 8.8 years. Patient's device appears to be functioning appropriately. We will continue to monitor this with routine/scheduled follow-ups. (4) Essential (primary) hypertension: Status: Acute Plan: Patient's blood pressure is well-controlled. We will continue to monitor. We will not make any medication regimen changes. (5) Abnormal Stress Test: Status: Acute Plan: He will proceed with heart catheterization. Depending on results, further recommendation to be made.
--- NOTE | 2024-05-29 08:30 | CL.D_ITS ---
Patient Name: LEONA PASCUAL Study Date: 05/29/2024 Performing: Mark Karimi MD Ht: 70 inches 177.8 cm : 1950 Wt: 220 lbs 99.79 kg Age: 73 Gender: male BSA: 2.17 PROCEDURE(S) PERFORMED [id number])LHC/COR/CABG CLINICAL PROFILE AND INDICATIONS Indications: Suspected CAD Heart Failure: NYHA Class: 2, Newly Diagnosed: Yes, Heart Failure Type: Diastolic Stress/Imaging Date: 05/06/24 CAD Presentations: Other: sob CONCLUSIONS Coronary disease with totally occluded mid LAD filling via patent GOODMAN and retrogradely filling the diagonal vessel. Circumflex artery is noted to be patent the right coronary artery is free of significant disease. Mitral valve repair is intact. RECOMMENDATIONS DESCRIPTION OF PROCEDURE The patient arrived to the procedure lab. The risks and benefits of the procedure as well as a full description of our services here and current unavailability of surgical backup were fully explained to the patient and/or their significant other prior to the catheterization. The Timeout was completed, verifying the correct patient and procedure. The patient's procedural site was prepped and draped in the usual fashion. Local anesthetic was given subcutaneously to left radial region with Lidocaine 2%. Using a modified Seldinger technique, arterial access was obtained via the left radial artery, a 6Fr sheath was inserted. Left internal mammary artery graft to the LAD selective angiography was performed in multiple views using a 5 Fr. IM catheter. Left Coronary Artery selective angiography was performed in multiple views using a 5 Fr. JL4 catheter. Right Coronary Artery selective angiography was then performed in multiple views using a 5 Fr. 3DRC (Jonnie) catheter. Right Coronary Artery selective angiography was then performed in multiple views using a 6 Fr. JR 4-125cm catheter.The arterial sheath was pulled and a TR Band was applied for hemostasis w/ 10ml air CORONARY ANGIOGRAPHY DOMINANCE: Right Dominant LEFT HEART ASSESSMENT Left Ventricular Ejection Fraction: by Echo 55 % Normal LV wall motion Normal Left Ventricular systolic function LEFT MAIN: Angiographically normal LEFT ANTERIOR DESCENDING ARTERY: MID LAD: is occluded CIRCUMFLEX ARTERY: Mild luminal irregularities less than 30% RIGHT CORONARY ARTERY: Mild luminal irregularities less than 30% GRAFTS: GOODMAN graft to the Mid LAD is patent VALVE FINDINGS: Mitral valve repair is stable. COMPLICATIONS No Complications PROCEDURE MEDICATIONS Versed 1 mg IV Fentanyl 50 mcg IV Versed 1 mg IV Oxygen: 2 L/min via nasal cannula Heparin given IA 05/29/2024 07:59:36 Verapamil 2.5mg, Ntg 100mcgs, 3000 units of Heparin given IA 05/29/2024 07:59:36 IV Bolus: .9 NaCl 200 ml total 05/29/2024 08:14:19 SUMMARY OF HEMODYNAMIC DATA Time AIR REST ECG 07:04:22 AO 79/45 (63) SA 08:04:52 AO 87/53 (70) 08:13:58 AO 90/54 (71) 08:18:20 Signed By Mark Karimi MD On 05/29/2024 08:32:00 Signed By Mark Karimi MD On 05/29/2024 08:29:38 Mark Karimi MD
[2024-05-29 08:44] LABS: Pro- Brain NATRIURETIC PEPTIDE 82 pg/mL (<=900)
== END 2024-05-29 10:25 | disposition home or self-care (01) ==
PROVIDERS: Nurse Practitioner Family; PCP Family Medicine; Referring Provider Internal Medicine Cardiovascular Disease; Visit Provider Internal Medicine Cardiovascular Disease
DX: I25.10 Atherosclerotic heart disease of native coronary artery without angina pectoris (principal); E11.9 Type 2 diabetes mellitus without complications; I25.82 Chronic total occlusion of coronary artery; Z95.1 Presence of aortocoronary bypass graft; R94.39 Abnormal result of other cardiovascular function study; R06.02 Shortness of breath; I10 Essential (primary) hypertension; I34.0 Nonrheumatic mitral (valve) insufficiency; E78.5 Hyperlipidemia, unspecified; I71.40 Abdominal aortic aneurysm, without rupture, unspecified; Z95.2 Presence of prosthetic heart valve; Z95.0 Presence of cardiac pacemaker; Z86.73 Personal history of transient ischemic attack (TIA), and cerebral infarction without residual deficits; Z87.19 Personal history of other diseases of the digestive system; Z90.49 Acquired absence of other specified parts of digestive tract; Z79.82 Long term (current) use of aspirin; Z79.84 Long term (current) use of oral hypoglycemic drugs; Z79.899 Other long term (current) drug therapy
CPT/HCPCS: 36415; 71046; 80048; 83880; 85025; 93455; 99152; 99153; C1894; Q9967; C1769

== ENCOUNTER 2024-08-24 12:39 | Emergency (ER) | payer MEDICARE, SELFPAY ==
[2024-08-24 12:40] VITALS: BP 111/73; PULSE 71; RESP 18; TEMP 36.6; O2SAT 97; BMI 29.8
== END 2024-08-24 14:08 | disposition home or self-care (01) ==
PROVIDERS: Emergency Provider Emergency Medicine; PCP Family Medicine; Visit Provider Emergency Medicine
DX: M76.62 Achilles tendinitis, left leg (principal); E11.9 Type 2 diabetes mellitus without complications; I10 Essential (primary) hypertension; E78.5 Hyperlipidemia, unspecified; I34.0 Nonrheumatic mitral (valve) insufficiency; I71.40 Abdominal aortic aneurysm, without rupture, unspecified; I25.10 Atherosclerotic heart disease of native coronary artery without angina pectoris; Z95.2 Presence of prosthetic heart valve; Z95.1 Presence of aortocoronary bypass graft; Z95.0 Presence of cardiac pacemaker; Z86.73 Personal history of transient ischemic attack (TIA), and cerebral infarction without residual deficits; Z79.82 Long term (current) use of aspirin; Z79.84 Long term (current) use of oral hypoglycemic drugs; Z79.899 Other long term (current) drug therapy
CPT/HCPCS: 99282